=== PATIENT | male | born 1955 | race Caucasian/White ===

== ENCOUNTER 2023-11-11 21:54 | Inpatient (IN) | payer OTHER, SELFPAY ==
[2023-11-11] VITALS (19 sets, daily range): BP systolic 91–121; BP diastolic 51–88; PULSE 120–171; RESP 13–33; TEMP 36.5; O2SAT 92–96
--- NOTE | 2023-11-11 21:45 | RT.EKG_ITS ---
APPROVED REPORT Exam: Resting ECG Reason for Exam: SOB Patient Location: E HR:132 bpm ECG Measurements Heart Rate 132 AXIS MD 173 P 109 QRSd 156 QRS 121 QT 338 T -28 QTc 496 Conclusion afib rate in 130's IVCD no ST segment or T wave abnormalities to suggest occlusive ID
--- NOTE | 2023-11-11 22:00 | DI.RAD_ITS ---
Exam(s) XR CHEST 2V PA LATERAL EXAM: XR CHEST 2V PA LATERAL CLINICAL HISTORY: short of breath TECHNIQUE: 2D digital imaging was performed. COMPARISON: CR PORTABLE CHEST ONE VIEW from 01/28/2018 FINDINGS: Exam is quite limited by poor pulmonary inflation and under penetration. The cardiac silhouette obs cures visualization of the majority of the left lung on the AP view. HEART: Enlarged. Status post CABG. Aorta: Not dilated. PULMONARY VASCULATURE: Normal. LUNGS: Grossly clear. Basilar atelectasis. PLEURAL SPACE: No pleural effusion or pneumothorax. BONE:Unremarkable for age. Soft tissues: Unremarkable. IMPRESSION: Cardiomegaly. No acute abnormality. DATA REPOSITORY: RADIATION DOSE DELIVERED:
[2023-11-11 22:17] LABS: Lactate 2.1 mmol/L (0.6-1.4)
[2023-11-11 22:20] LABS: Abs Immature Grans 0.06 10^3/uL (0.0-0.06); Absolute Basophil Count 0.02 10^3/uL (0.0-0.2); Absolute Eosinophil Count 0.03 10^3/uL (0.0-0.7); Basophils % 0.2; Eosinophils % 0.4; HCT 32.7 % (40.0-50.0); HGB 10.7 g/dL (13.5-17.5); Immature Grans % 0.7; Lymphocytes % 2.4; MCH 30.8 pg (27.0-33.0); MCHC 32.7 % (32.0-36.0); MCV 94 fL (80-95); MPV 9.7 fL (8.0-11.0); Monocytes % 7.1; Neutrophils % 89.2; Platelet Count 160 10^3/uL (130-400); RBC 3.47 10^6/uL (4.36-5.78); RDW 15.3 % (11.8-14.1); RDW-SD 52.8 fL; WBC 8.51 10^3/uL (4.4-10.8)
[2023-11-11 22:33] LABS: Magnesium 1.5 mg/dL (1.8-2.4)
[2023-11-11 22:45] LABS: ALT 46 U/L (16-63); AST 46 U/L (15-37); Albumin 2.2 g/dL (3.4-5.0); Alkaline Phosphatase 102 U/L (46-116); Anion Gap 11.6 mmol/L (3-11); Bilirubin, Total 0.8 mg/dL (0.2-1.0); CO2 27.4 mmol/L (21.0-32.0); Calcium 9.8 mg/dL (8.5-10.1); Chloride 95 mmol/L (98-107); Estimated GFR 13.49 (mL/min/1.73m2); Glucose 172 mg/dL (74-106); NT-proBNP 4926 pg/mL (<300); Sodium 134 mmol/L (136-145); TSH (W/Ref FT4) 2.61 uIU/mL (0.36-3.74); Total Protein 8.2 g/dL (6.4-8.2); Troponin I < 50 ng/L (< or =60)
[2023-11-11 22:49] LABS: BUN 83 mg/dL (7-18); CREATININE 4.5 mg/dL (0.70-1.30)
[2023-11-11 22:51] LABS: D-Dimer 2603 ng/mlFEU (<500)
[2023-11-11 22:57] LABS: Procalcitonin 0.4 ng/mL
--- NOTE | 2023-11-11 23:06 | DI.VRAD_ITS ---
PROCEDURE INFORMATION: Exam: XR Chest Exam date and time: 11/11/2023 10:34 PM Age: 68 years old Clinical indication: Shortness of breath; Prior surgery; Surgery date: 6+ months; Surgery type: Cabg TECHNIQUE: Imaging protocol: Radiologic exam of the chest. Views: 2 views. COMPARISON: CR PORTABLE CHEST ONE VIEW 01/28/2018 9:18 AM FINDINGS: Lungs: See Diaphragm finding. Pleural spaces: Unremarkable. No pleural effusion. No pneumothorax. Heart/Mediastinum: Unremarkable. No cardiomegaly. Diaphragm: Elevation of the right hemidiaphragm. Lungs are clear. Bones/joints: Unremarkable. IMPRESSION: Elevation of the right hemidiaphragm. Lungs are clear. Dictated and Authenticated by: Christiano Muñoz MD. Ordering:BOBBI Stewart MD
[2023-11-11] MEDS: PIPERACILLIN/TAZO 4.5 GM in Normal Saline 100 ML IVPB (23:08)
[2023-11-11] MEDS: Normal Saline 1,000 ML 1000 ML IV (23:08)
[2023-11-11] MEDS: LINEZOLID 600 MG/300 ML BAG 300 MG IVPB (23:08)
--- NOTE | 2023-11-11 23:20 | W.ED.GENAD ---
HPI General Mode of arrival: EMS. Date/Time Provider Initiated Documentation: 11/11/23 22:07. Limitations to Documentation: no limitations. Information obtained by: patient, family, EMS and old records reviewed. HPI Narrative: 68yo M with obesity, afib, HLD, T2DM, HTN, CHF, CKD, s/p CABG, presents for general malaise. [facility] Has felt unwell for the past week, become more lightheaded and generally fatigued. Today so weak he was unable to navigate the stairs to get to bed and so called EMS. HR 160's for EMS, given 5mg IV metoprolol. Mildly nauseated, no vomiting. No chest pain or abdominal pain. Some worsening GALLAGHER over the past three months. Has a left foot ulcer which has been getting worse. Not eating or drinking much today, mouth feels dry, very lightheaded when he tries to stand. Decreased urine output today and yesterday, has voided twice today. No worsening LE edema or orthopnea. He is otherwise in his usual state of health with no fevers, chills, dysuria, hematuria, numbness, focal weakness, or other concerns. Related Data Home Medications Medication Instructions Recorded Confirmed clopidogrel 75 mg tablet (Plavix) 75 mg PO DAILY 05/07/13 11/11/23 insulin aspart U-100 100 unit/mL 0 - 45 units SQ .WITH MEALS PRN 05/07/13 11/11/23 subcutaneous solution (Novolog U-100 Insulin aspart) losartan 50 mg tablet (Cozaar) 100 mg PO DAILY 05/07/13 11/11/23 acetaminophen 500 mg tablet 1,000 mg PO PRN 03/27/14 11/11/23 (Acetaminophen Extra Strength) gabapentin 300 mg capsule 1 cap PO TID 09/13/14 11/11/23 atorvastatin 20 mg tablet (Lipitor) 40 mg PO HS 01/03/16 11/11/23 metoprolol tartrate 100 mg tablet 112.5 mg PO BID 01/03/16 11/11/23 pantoprazole 40 mg tablet,delayed 40 mg PO QAM 01/03/16 11/11/23 release metformin 1,000 mg tablet 1 tab PO BID 08/23/16 11/11/23 (Glucophage) omega-3 fatty acids 500 mg capsule 500 mg PO BID 08/23/16 11/11/23 (Fish Oil) allopurinol 300 mg tablet 300 mg PO DAILY 01/28/18 11/11/23 amlodipine 5 mg tablet 5 mg PO DAILY 01/28/18 11/11/23 bumetanide 2 mg tablet 2 mg PO DAILY 01/28/18 11/11/23 insulin glargine 100 unit/mL (3 66 unit SQ HS 01/28/18 11/11/23 mL) subcutaneous pen (Lantus Solostar U-100 Insulin) isosorbide mononitrate 120 mg 240 mg PO DAILY 01/28/18 11/11/23 tablet,extended release 24 hr potassium chloride 10 mEq 10 meq PO BID 01/28/18 11/11/23 tablet,extended release rivaroxaban 2.5 mg tablet (Xarelto) 2.5 mg PO BID 10/01/23 11/11/23 Allergies Allergy/AdvReac Type Severity Reaction Status Date / Time silver Allergy Mild Skin Rash Unverified 11/11/23 22:05 [From Tegaderm AG Mesh] Penicillins Allergy Verified 11/11/23 22:05 amoxicillin [From Augmentin] AdvReac Other (See Unverified 11/11/23 22:05 Comment) clavulanic acid AdvReac Other (See Unverified 11/11/23 22:05 [From Augmentin] Comment) cillians Allergy Mild Uncoded 11/11/23 22:05 General Stated Complaint: GenMedical EBONI: 3 Review of Systems Narrative: see HPI Exam Narrative Exam Narrative: General: Alert, chronically ill appearing, obese. Head: Normocephalic, atraumatic Neck: Trachea midline, ?Neck supple. ENT: ?Dry MM. Cardiac: ?Tachycardiac to 130's, irregular,, no murmurs appreciated. Resp: No respiratory distress. CTAB. Abd: ?Soft, nontender : ?No suprapubic tenderness. Extremities: Venous stasis changes BLE. No peripheral edema,, calves symmetric. Multiple LE digit amputations. LLE with~3cm ulcer to top of food, dry gangrene, surrounding maceration with warmth and erythema extending up anterior cohen. Scant malodorous discharge, no theo purulence. Healing ulcer to planar aspect of left foot near base of 1st/2nd digit, not overtly infected. DP pulses palpable bilaterally Neurologic: GCS 15. ? Moves all extremities freely against gravity Course Vital Signs Vital signs: Vital Signs Temperature 36.5 C 11/11/23 21:55 Pulse 163 H 11/11/23 21:55 Respiratory Rate 16 11/11/23 21:55 Pulse Oximetry 92 11/11/23 21:55 Temperature 36.5 C 11/11/23 22:04 Temperature Source Skin 11/11/23 22:04 Pulse 171 H 11/11/23 22:16 Pulse 125 H 11/11/23 23:00 Respiratory Rate 21 11/11/23 23:00 Respiratory Effort Normal 11/11/23 22:06 Respiratory Depth Normal 11/11/23 22:06 Respiratory Pattern Normal 11/11/23 22:06 Blood Pressure 121/84 11/11/23 22:16 Blood Pressure Mean 94 11/11/23 22:16 Blood Pressure Position Supine 11/11/23 22:04 Pulse Oximetry 96 11/11/23 23:00 Oxygen Delivery Method Room Air 11/11/23 22:04 Oxygen Flow Rate 0 11/11/23 21:55 Pain Level 0 11/11/23 22:04 Comment 2 L NC 11/11/23 23:00 Lab/Test Results Lab/Test Results: 11/11/23 22:50 Blood Blood Culture - Pending 11/11/23 22:05 Blood Blood Culture - Pending Laboratory Tests Range/Units 11/11/23 22:05 WBC (4.4-10.8) 10^3/uL 8.51 RBC (4.36-5.78) 10^6/uL 3.47 L Hgb (13.5-17.5) g/dL 10.7 L Hct (40.0-50.0) % 32.7 L MCV (80-95) fL 94 MCH (27.0-33.0) pg 30.8 MCHC (32.0-36.0) % 32.7 RDW (11.8-14.1) % 15.3 H Plt Count (130-400) 10^3/uL 160 MPV (8.0-11.0) fL 9.7 Immature Gran % 0.7 Neutrophils % 89.2 Lymphocytes % 2.4 Monocytes % 7.1 Eosinophils % 0.4 Basophils % 0.2 Nucleated RBC % (0.0-0.3) % 0.0 Absolute Neutrophils (1.2-6.7) 10^3/uL 7.60 H Absolute Lymphocytes (1.2-3.4) 10^3/uL 0.20 L Absolute Monocytes (0.1-0.8) 10^3/uL 0.60 Absolute Eosinophils (0.0-0.7) 10^3/uL 0.03 Absolute Basophils (0.0-0.2) 10^3/uL 0.02 D-Dimer (<500) ng/mlFEU 2603 H VBG Lactate (0.6-1.4) mmol/L 2.1 H Sodium (136-145) mmol/L 134 L Potassium (3.5-5.1) mmol/L 4.0 Chloride (98-107) mmol/L 95 L Carbon Dioxide (21.0-32.0) mmol/L 27.4 Anion Gap (3-11) mmol/L 11.6 H BUN (7-18) mg/dL 83 H* Creatinine (0.70-1.30) mg/dL 4.5 H* Est GFR (CKD-EPI 2020) (mL/min/1.73m2) 13.49 Glucose (74-106) mg/dL 172 H Calcium (8.5-10.1) mg/dL 9.8 Magnesium (1.8-2.4) mg/dL 1.5 L Total Bilirubin (0.2-1.0) mg/dL 0.8 AST (15-37) U/L 46 H ALT (16-63) U/L 46 Alkaline Phosphatase (46-116) U/L 102 Troponin I (< or =60) ng/L < 50 NT-Pro-B Natriuret Pep (<300) pg/mL 4926 H Total Protein (6.4-8.2) g/dL 8.2 Albumin (3.4-5.0) g/dL 2.2 L Procalcitonin ng/mL 0.4 TSH (0.36-3.74) uIU/mL 2.61 Medical Decision Making 68yo M with obesity, afib, HLD, T2DM, HTN, CHF, CKD, s/p CABG, presents for general malaise. Initial history from patient, EMS, and [facility] record review; [facility] Pt/EMS did not initially mention history of kidney disease; subsequently at bedside and able to provide additional details. Has felt unwell for the past week, become more lightheaded and generally fatigued and today wasso weak he was unable to navigate the stairs to get to bed which prompted EMS call. HR in 160's for EMS, given 5mg metoprolol. On my initial assessment HR down to 130's, normotensive. Physical exam significant for left foot ulcer which appears infected with warmth and erythema extending up cohen. Appears volume down on exam; dry MM, clear lungs, no LE edema. Does report decreased fluid intake over the past several days. He is unsure of his EF or baseline CR. Elevated HR and infection concerning for potential sepsis though he is afebrile; will proceed cautiously with fluid resuscitation. Given 500cc NS, started on zosyn/zyvox for coverage for diabetic foot infection. CXR with no pulmonary edema or focal pneumonia on my view, agree [facility] radiology read below. EKG afib with rate in 130's, RBBB also present on prior EKG, no ST segment or T wave abnormalities to suggest occlusive [place]. Labs reviewed as below, CBC reassuring with no leukocytosis, mild anemia. Does not meet SIRS/sepsis criteria. CMP with no actionable electrolyte abnormalities, normal bicarb, however Cr elevated at 4.5 with uremia BUN 83. Most recent Cr at [facility] in 2018 was 1.8. subsequently to bedside, reports baseline Cr of around 2.0, has been as high as 3.5 in the past. Lactate mildly elevated at 2.1, procal borderline at 0.4. Will repeat lactate in 3 hours. TSH normal. Troponin normal, BNP elevated at 4926 (unknown baseline). Dimer elevated at 2600. Patient is currently on ASA, plavix, and low-dose xarelto. No findings on physical exam to suggest DVT. Lower suspicion for pulmonary embolism as etiology of tachycardia however remains possible; hesitate to do contrasted CT given acutely worsening kidney function and more likely infection as provoking source. Will defer decision on imaging/empiric anticoagulation to admitting service. Will continue to treat for diabetic foot infection and proceed cautiously with fluid resus. On reassessment HR 120's, had been placed on 2L NC for supine hypoxia to 88% (does not wear oxygen at home but does wear biPAP at night). Lungs remain clear, suspect this is likely chronic and not 2/t CHF or PE. Discussed with hospitalist Dr. Flores and accepted for admission. Awaiting transfer to the floor. . Medical Records Medical records reviewed: Yes I reviewed the patient's medical records. Imaging Data Radiologic Study: Imaging: X-Ray Radiologist's impression: IMPRESSION: Elevation of the right hemidiaphragm. Lungs are clear Lab Data Lab results reviewed: Yes I reviewed the patient's lab results. Labs: 11/11/23 22:50 Blood Blood Culture - Pending 11/11/23 22:05 Blood Blood Culture - Pending Laboratory Tests Range/Units 11/11/23 22:05 WBC (4.4-10.8) 10^3/uL 8.51 RBC (4.36-5.78) 10^6/uL 3.47 L Hgb (13.5-17.5) g/dL 10.7 L Hct (40.0-50.0) % 32.7 L MCV (80-95) fL 94 MCH (27.0-33.0) pg 30.8 MCHC (32.0-36.0) % 32.7 RDW (11.8-14.1) % 15.3 H Plt Count (130-400) 10^3/uL 160 MPV (8.0-11.0) fL 9.7 Immature Gran % 0.7 Neutrophils % 89.2 Lymphocytes % 2.4 Monocytes % 7.1 Eosinophils % 0.4 Basophils % 0.2 Nucleated RBC % (0.0-0.3) % 0.0 Absolute Neutrophils (1.2-6.7) 10^3/uL 7.60 H Absolute Lymphocytes (1.2-3.4) 10^3/uL 0.20 L Absolute Monocytes (0.1-0.8) 10^3/uL 0.60 Absolute Eosinophils (0.0-0.7) 10^3/uL 0.03 Absolute Basophils (0.0-0.2) 10^3/uL 0.02 D-Dimer (<500) ng/mlFEU 2603 H VBG Lactate (0.6-1.4) mmol/L 2.1 H Sodium (136-145) mmol/L 134 L Potassium (3.5-5.1) mmol/L 4.0 Chloride (98-107) mmol/L 95 L Carbon Dioxide (21.0-32.0) mmol/L 27.4 Anion Gap (3-11) mmol/L 11.6 H BUN (7-18) mg/dL 83 H* Creatinine (0.70-1.30) mg/dL 4.5 H* Est GFR (CKD-EPI 2020) (mL/min/1.73m2) 13.49 Glucose (74-106) mg/dL 172 H Calcium (8.5-10.1) mg/dL 9.8 Magnesium (1.8-2.4) mg/dL 1.5 L Total Bilirubin (0.2-1.0) mg/dL 0.8 AST (15-37) U/L 46 H ALT (16-63) U/L 46 Alkaline Phosphatase (46-116) U/L 102 Troponin I (< or =60) ng/L < 50 NT-Pro-B Natriuret Pep (<300) pg/mL 4926 H Total Protein (6.4-8.2) g/dL 8.2 Albumin (3.4-5.0) g/dL 2.2 L Procalcitonin ng/mL 0.4 TSH (0.36-3.74) uIU/mL 2.61 Quality:[facility] Related Social Needs: No Data to Display PFSH All Active Problems (Updated 11/12/23 @ 00:44 by Pat Garcia MD) Atrial fibrillation with RVR (Acute) Acute kidney injury superimposed on chronic kidney disease (Acute) CHF (congestive heart failure) (Chronic) History of: (Active) Right frozen shoulder, resolved. Right elbow tendinitis, now resolved. S/P hydrocele repair. 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 History of metatarsal fracture. Metabolic syndrome X (Active) Dyslipidemia (Active) Triglycerides greater than 600 and HDL in the 20s, consistent with metabolic syndrome. Atrial fibrillation (Active) Tinea cruris (Active) Venous stasis syndrome (Active) Morbid obesity (Acute) [place] of 46. Gastroesophageal reflux disease (Active) Diabetes mellitus type 2 (Acute) Uncontrolled, usually on high dose insulin; known retinopathy and mild nephropathy. Benign hypertension (Active) Umbilical hernia (Active) Cellulitis and abscess of leg (Acute) Recurrent. Social History Smoking/Tobacco Use Status: Former Tobacco Use Smoking risk assessment performed?: Yes Alcohol Intake: never Drug use: Never Substance use type: does not use Do you feel safe at home: Yes Do you feel safe in your relationship?: Yes Discharge Plan Disposition Patient Disposition: Admit to [facility] Discharge Details Chief Complaint: GenMedical Clinical Impression: Diabetes mellitus type 2, Morbid obesity, Cellulitis and abscess of leg, CHF (congestive heart failure), Acute kidney injury superimposed on chronic kidney disease, Atrial fibrillation with RVR Primary Care Provider: Stefan Jaimes ED Provider: Pat Garcia Home Meds and New Rx's Prescriptions: No Action Xarelto 2.5 mg tablet 2.5 mg PO BID losartan [Cozaar] 50 MG tablet 100 mg PO DAILY clopidogrel [Plavix] 75 MG tablet 75 mg PO DAILY insulin aspart U-100 [Novolog U-100 Insulin aspart] 100 UNITS/ML solution 0 - 45 units SQ .WITH MEALS PRN acetaminophen [Acetaminophen Extra Strength] 500 MG tablet 1,000 mg PO PRN gabapentin 300 MG capsule 1 cap PO TID atorvastatin [Lipitor] 20 MG tablet 40 mg PO HS metoprolol tartrate 100 MG tablet 112.5 mg PO BID pantoprazole 40 MG tablet,delayed release (DR/EC) 40 mg PO QAM metformin [Glucophage] 1,000 MG tablet 1 tab PO BID Fish Oil 500 MG capsule 500 mg PO BID bumetanide 2 MG tablet 2 mg PO DAILY potassium chloride 10 MEQ tablet extended release 10 meq PO BID amlodipine 5 MG tablet 5 mg PO DAILY isosorbide mononitrate 120 MG tablet extended release 24 hr 240 mg PO DAILY allopurinol 300 MG tablet 300 mg PO DAILY insulin glargine [Lantus Solostar U-100 Insulin] 100 UNIT/ML insulin pen 66 unit SQ HS
[2023-11-12] VITALS (62 sets, daily range): BP systolic 89–145; BP diastolic 38–79; PULSE 56–150; RESP 8–29; TEMP 36.8–37.3; O2SAT 92–95
--- NOTE | 2023-11-12 | DI.US_ITS ---
Exam(s) US RENAL EXAM: US RENAL CLINICAL HISTORY: YOLANDA. TECHNIQUE: Fam scale, color and spectral Doppler were used. COMPARISON: US ABDOMEN ULTRASOUND (P) from 05/08/2013 FINDINGS: Renal size in cm: Right: 12.3. Left: 13.7. Echogenicity: Normal. Hydronephrosis: No. Cyst or mass: No. Nephrolithiasis: No. Other findings: Mild diffuse cortical thinning. Bladder:Normal. Ureteral jets: Right: Not visualized on this examination. Left: Not visualized on this examination. Prevoid vol:879 cc Postvoid vol:The patient was unable to void. Prostate: Not visualized. Renal color flow: Symmetric and within normal limits. IMPRESSION: 1. Mild cortical thinning but no evidence of hydronephrosis or renal mass is seen sonographically. 2. The patient was unable to void during the examination. The urinary bladder is grossly unremarkabl e. DATA REPOSITORY:
--- NOTE | 2023-11-12 | DI.RAD_ITS ---
Exam(s) XR FOOT LT COMPLETE EXAM: XR FOOT LT COMPLETE CLINICAL HISTORY: question of osteomyelitis; DM foot ulcer. TECHNIQUE: 2D digital imaging was performed. Three views. COMPARISON: CR LEFT FOOT COMPLETE from 03/16/2018 FINDINGS: Stable appearance of amputation at the base of the proximal phalanx of the great toe. There has been interval amputation of the entire 2nd toe. Amputation of the 3rd toe since the prior exam with resi dual remaining proximal portion. Adjacent soft tissue swelling. No foreign body or bony erosions. Degenerative changes again noted in the intertarsal region. IMPRESSION: Status post amputations of the 2nd and 3rd toes. No plain film evidence of osteomyelitis. DATA REPOSITORY: RADIATION DOSE DELIVERED:
--- NOTE | 2023-11-12 00:42 | W.PM.HP.N ---
Date of service: 11/12/23 Time of Service: 00:42 Assessment and Plan Assessment and plan (1) Cellulitis: Status: Acute Assessment and plan: I think the primary problem here is diabetic foot infection with cellulitis. Zosyn is adequate broad spectrum coverage, I do not see need to continue Zyvox at this point. Will consult Podiatry. As to the YOLANDA, likely pre-renal, will check urine and gently -- in light of h/o CHF in particular -- hydrate, and trend renal function. AF: will up titrate beta ralph for rate control; continue DOAC as is YOLANDA: gentle IVF, hold ARB and Bumex, trend DM: Lantus (2/3 usual dose) plus SS coverage Reviewed ADs, requests Full Code History of Present Illness History of Present Illness Chief Complaint: weakness Narrative: 68 male with DM, CHF, AF, obesity -- here with one week of malaise, and few days of progressive generalized weakness, anorexia and poor PO intake. EMS summoned. On arrival pulse 160, given 5 Lopressor en route. Here in ER findings of note for temp 36.5; 5 cm oozing ulcer dorsum right foot with pretibial cellulitis; white count 8.5;BUN 83, Creat 4.5; procal 0.4; Patient given Zosyn and Zyvox. I was asked to evaluate for admission. Review of Systems Narrative: per HPI PFSH All Active Problems (Updated 11/12/23 @ 00:51 by Gerson Flores MD) Cellulitis (Acute) Atrial fibrillation with RVR (Acute) Acute kidney injury superimposed on chronic kidney disease (Acute) CHF (congestive heart failure) (Chronic) History of: (Active) Right frozen shoulder, resolved. Right elbow tendinitis, now resolved. S/P hydrocele repair. 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 History of metatarsal fracture. Metabolic syndrome X (Active) Dyslipidemia (Active) Triglycerides greater than 600 and HDL in the 20s, consistent with metabolic syndrome. Atrial fibrillation (Active) Tinea cruris (Active) Venous stasis syndrome (Active) Morbid obesity (Acute) [place] of 46. Gastroesophageal reflux disease (Active) Diabetes mellitus type 2 (Acute) Uncontrolled, usually on high dose insulin; known retinopathy and mild nephropathy. Benign hypertension (Active) Umbilical hernia (Active) Cellulitis and abscess of leg (Acute) Recurrent. Social History Smoking/Tobacco Use Status: Former Tobacco Use Smoking risk assessment performed?: Yes Alcohol Intake: never Drug use: Never Substance use type: does not use Do you feel safe at home: Yes Do you feel safe in your relationship?: Yes Meds Allergies and Home Medications Allergies Allergy/AdvReac Type Severity Reaction Status Date / Time silver Allergy Mild Skin Rash Unverified 11/11/23 22:05 [From Tegaderm AG Mesh] Penicillins Allergy Verified 11/11/23 22:05 amoxicillin [From Augmentin] AdvReac Other (See Unverified 11/11/23 22:05 Comment) clavulanic acid AdvReac Other (See Unverified 11/11/23 22:05 [From Augmentin] Comment) cillians Allergy Mild Uncoded 11/11/23 22:05 Home Medications Medication Instructions Recorded Confirmed Type clopidogrel 75 mg tablet (Plavix) 75 mg PO DAILY 05/07/13 11/11/23 History insulin aspart U-100 100 unit/mL 0 - 45 units SQ .WITH MEALS PRN 05/07/13 11/11/23 History subcutaneous solution (Novolog U-100 Insulin aspart) losartan 50 mg tablet (Cozaar) 100 mg PO DAILY 05/07/13 11/11/23 History acetaminophen 500 mg tablet 1,000 mg PO PRN 03/27/14 11/11/23 History (Acetaminophen Extra Strength) gabapentin 300 mg capsule 1 cap PO TID 09/13/14 11/11/23 History atorvastatin 20 mg tablet (Lipitor) 40 mg PO HS 01/03/16 11/11/23 History metoprolol tartrate 100 mg tablet 112.5 mg PO BID 01/03/16 11/11/23 History pantoprazole 40 mg tablet,delayed 40 mg PO QAM 01/03/16 11/11/23 History release metformin 1,000 mg tablet 1 tab PO BID 08/23/16 11/11/23 History (Glucophage) omega-3 fatty acids 500 mg capsule 500 mg PO BID 08/23/16 11/11/23 History (Fish Oil) allopurinol 300 mg tablet 300 mg PO DAILY 01/28/18 11/11/23 History amlodipine 5 mg tablet 5 mg PO DAILY 01/28/18 11/11/23 History bumetanide 2 mg tablet 2 mg PO DAILY 01/28/18 11/11/23 History insulin glargine 100 unit/mL (3 66 unit SQ HS 01/28/18 11/11/23 History mL) subcutaneous pen (Lantus Solostar U-100 Insulin) isosorbide mononitrate 120 mg 240 mg PO DAILY 01/28/18 11/11/23 History tablet,extended release 24 hr potassium chloride 10 mEq 10 meq PO BID 01/28/18 11/11/23 History tablet,extended release rivaroxaban 2.5 mg tablet (Xarelto) 2.5 mg PO BID 10/01/23 11/11/23 History Exam Narrative Exam Narrative: 121/84, 112 (during visit), 36.5, 21, 96%. PATRICIA$NT atraumatic; neck supple; lungs clear (anterior exam, declines to change position); heart irr/irr; abdomen obese, non-tender; extremities s/p right toe amps; on left there is a 5 cm oozing ulcr with eschar on dorsum of foot, with erythema and warmth apparent against a background of chronic stasis changes Results Labs 11/11/23 22:05 11/11/23 22:05 Labs: Laboratory Results - last 24 hr 11/11/23 22:05 WBC 8.51 RBC 3.47 L Hgb 10.7 L Hct 32.7 L MCV 94 MCH 30.8 MCHC 32.7 RDW 15.3 H Plt Count 160 MPV 9.7 Immature Gran % 0.7 Neutrophils % 89.2 Lymphocytes % 2.4 Monocytes % 7.1 Eosinophils % 0.4 Basophils % 0.2 Nucleated RBC % 0.0 Absolute Neutrophils 7.60 H Absolute Lymphocytes 0.20 L Absolute Monocytes 0.60 Absolute Eosinophils 0.03 Absolute Basophils 0.02 D-Dimer 2603 H VBG Lactate 2.1 H Sodium 134 L Potassium 4.0 Chloride 95 L Carbon Dioxide 27.4 Anion Gap 11.6 H BUN 83 H* Creatinine 4.5 H* Est GFR (CKD-EPI 2020) 13.49 Glucose 172 H Calcium 9.8 Magnesium 1.5 L Total Bilirubin 0.8 AST 46 H ALT 46 Alkaline Phosphatase 102 Troponin I < 50 NT-Pro-B Natriuret Pep 4926 H Total Protein 8.2 Albumin 2.2 L Procalcitonin 0.4 TSH 2.61 Last Vital Signs Temp 36.5 C 11/11/23 22:04 Pulse 171 H 11/11/23 22:16 Resp 21 11/11/23 23:00 BP 121/84 11/11/23 22:16 Pulse Ox 96 11/11/23 23:00 Time Spent Time spent with Patient: 40-54 minutes Time was spent: preparing to see the patient(eg.review tests), obtaining and/or reviewing separately otained hiistory, ordering medications,tests, procedures, referring, communicating with other health healthcare customer service and indepentently interpreting results
[2023-11-12] MEDS: PIPERACILLIN/TAZO 3.375 GM in Normal Saline 50 ML IVPB (04:03)
[2023-11-12] MEDS: Metoprolol 25 MG TAB PO (04:59)
[2023-11-12] MEDS: Lactated Ringers 1,000 ML 80 ML IV (05:15)
[2023-11-12 05:21] LABS: Lactate 0.9 mmol/L (0.6-1.4)
[2023-11-12 06:37] LABS: Anion Gap 14.1 mmol/L (3-11); CO2 25.9 mmol/L (21.0-32.0); Calcium 9.6 mg/dL (8.5-10.1); Chloride 95 mmol/L (98-107); Estimated GFR 13.49 (mL/min/1.73m2); Glucose 159 mg/dL (74-106); Potassium 3.5 mmol/L (3.5-5.1); Sodium 135 mmol/L (136-145)
[2023-11-12 06:43] LABS: BUN 88 mg/dL (7-18); CREATININE 4.5 mg/dL (0.70-1.30)
[2023-11-12] MEDS: MAGNESIUM SULFATE 1 GM/100 ML BAG IVPB (07:45)
[2023-11-12] MEDS: Clopidogrel 75 MG TAB PO (07:51)
[2023-11-12] MEDS: Pantoprazole 40 MG TABCR PO (07:51)
[2023-11-12] MEDS: Metoprolol 50 MG TAB 100 MG PO ×2 (07:51→20:49)
[2023-11-12] MEDS: Metoprolol 25 MG TAB 12.5 MG PO ×2 (07:51→20:47)
[2023-11-12] MEDS: Rivaroxaban 2.5 MG TABLET PO ×2 (10:30→20:47)
[2023-11-12] MEDS: amLODIPine 5 MG TAB PO (10:31)
[2023-11-12] MEDS: Isosorbide Mononitrate 60 MG TABCR 240 MG PO (10:31)
[2023-11-12] MEDS: Gabapentin 300 MG CAP PO ×2 (10:46→20:48)
[2023-11-12 10:49] LABS: Lab Add On Test DONE
[2023-11-12 11:14] LABS: Creatine Kinase 444 U/L (39-308)
[2023-11-12 11:17] LABS: C-Reactive Protein > 25.00 mg/dL (0.0-0.3)
[2023-11-12] MEDS: PIPERACILLIN/TAZO 2.25 GM in Normal Saline 50 ML IVPB ×3 (11:27→21:37)
[2023-11-12] MEDS: Insulin Aspart 300 UNITS/3 ML PEN SC ×2 (11:38→16:59)
[2023-11-12] MEDS: LINEZOLID 600 MG/300 ML BAG 300 MG IVPB ×2 (12:17→23:44)
[2023-11-12 14:25] LABS: Bilirubin Negative (Negative); Blood Negative (Negative); Clarity Clear (Clear); Glucose Negative (Negative); Ketones Negative (Negative); Leukocyte Esterase Negative (Negative); Nitrite Negative (Negative)
[2023-11-12 14:33] LABS: Bacteria Negative HPF (Negative); C & S Indicated? No; Casts 0-2 Hyaline LPF (Negative); Crystals Negative HPF (Negative); Epithelial Cells Rare HPF (Negative); Mucus Negative (Negative); RBC Negative HPF (0-2); WBC Negative HPF (0-5)
[2023-11-12] MEDS: Atorvastatin 40 MG TAB PO (20:48)
[2023-11-12] MEDS: Insulin Glargine 300 UNITS/3 ML PEN 44 UNITS SC (21:43)
[2023-11-13] VITALS (9 sets, daily range): BP systolic 111–128; BP diastolic 55–78; PULSE 72–105; RESP 14–20; TEMP 36.3–38.3; O2SAT 92–96
[2023-11-13] MEDS: PIPERACILLIN/TAZO 2.25 GM in Normal Saline 50 ML IVPB ×4 (03:15→22:11)
[2023-11-13] MEDS: Lactated Ringers 1,000 ML 80 ML IV (03:38)
[2023-11-13 07:41] LABS: Abs Immature Grans 0.04 10^3/uL (0.0-0.06); Absolute Basophil Count 0.03 10^3/uL (0.0-0.2); Absolute Eosinophil Count 0.08 10^3/uL (0.0-0.7); Absolute Lymphocyte Count 0.32 10^3/uL (1.2-3.4); Absolute Monocyte Count 0.75 10^3/uL (0.1-0.8); Absolute Neutrophil Count 5.89 10^3/uL (1.2-6.7); Basophils % 0.4; Eosinophils % 1.1; HCT 33.5 % (40.0-50.0); HGB 11.2 g/dL (13.5-17.5); Immature Grans % 0.6; Lymphocytes % 4.5; MCH 31.1 pg (27.0-33.0); MCHC 33.4 % (32.0-36.0); MCV 93 fL (80-95); MPV 10.4 fL (8.0-11.0); Monocytes % 10.5; Neutrophils % 82.9; Platelet Count 178 10^3/uL (130-400); RDW 15.4 % (11.8-14.1); WBC 7.11 10^3/uL (4.4-10.8)
[2023-11-13 08:08] LABS: Anion Gap 15.4 mmol/L (3-11); C-Reactive Protein 23.49 mg/dL (0.0-0.3); CO2 22.6 mmol/L (21.0-32.0); Calcium 9.5 mg/dL (8.5-10.1); Chloride 90 mmol/L (98-107); Estimated GFR 13.13 (mL/min/1.73m2); Glucose 269 mg/dL (74-106); Potassium 3.4 mmol/L (3.5-5.1); Sodium 128 mmol/L (136-145)
[2023-11-13 08:11] LABS: BUN 94 mg/dL (7-18)
[2023-11-13 08:12] LABS: CREATININE 4.6 mg/dL (0.70-1.30)
[2023-11-13] MEDS: Insulin Aspart 300 UNITS/3 ML PEN SC ×3 (08:50→17:11)
[2023-11-13] MEDS: Gabapentin 300 MG CAP PO ×2 (08:53→20:48)
[2023-11-13] MEDS: Pantoprazole 40 MG TABCR PO (08:53)
[2023-11-13] MEDS: Rivaroxaban 2.5 MG TABLET PO ×2 (08:53→20:50)
[2023-11-13] MEDS: Clopidogrel 75 MG TAB PO (08:55)
[2023-11-13] MEDS: Potassium Chloride 20 MEQ TABCR PO (09:46)
[2023-11-13] MEDS: Acetaminophen 325 MG TAB 650 MG PO (09:46)
--- NOTE | 2023-11-13 09:56 | W.INDIABCONS ---
Date of service: 11/13/23 Time of Service: 08:45 Diabetes Inpatient Consult Reason for Visit: Routine Consult - Diabetes Education DESCRIPTION/ASSESSMENT: MR Shirley is a 68yo male admitted with cellulitis ulcer on R foot, Afib with RVR, YOLANDA superimposed on CKD with Hx of CHF, obesity, DMII (with current insulin use), dyslipidemia, GERD, and HTN. NKFA. Pt relays no special alevism food needs during admission. Takes 66units Glargine HS and 0-45units Aspart c meals at home, as well as metformin BID. Glucose managed this admission with 44 units Glargine HS and sensitive SS of insulin aspart at meals. Pt states he does most of the cooking at home but lately hasn't cooked, eaten significantly and stopped taking his insulin shortly prior to admission. Last A1C was 7.1 in 2012 per EMR. Ordered for low sodium CHO consistent diet order - reviewed with pt. FBG this morning was 269 - would expect elevated glucose with current acute illness and inflammation (CRP is >20). Current BMI of 45.2kg/m2 is indicative of stage III obesity, although pt is currently fluid overloaded and accounts for some of this. Pt not appropriate for diabetes education at this time due to his acute state of illness and focusing on his current situation as priority. He declined in-depth education but accepted my card to consider future outpatient diabetes education /wt mgt appointments. INTERVENTION: due to his significant drop in appetite and oral intake, pt willing to trial a glucerna ONS on lunch trays to get some extra protein and nutrition. Will make an effort to follow pt as his condition improves to offer more opportunites to go over diabetes mgt with diet. PLAN: Will follow up on ONS toleration and changes in appetite/intake - Will make an effort to follow pt as his condition improves to offer more opportunty to go over diabetes mgt with diet. Time Spent in Nutritional Counseling and Treatment: 15 min
[2023-11-13 10:20] LABS: Bilirubin Moderate (Negative); Blood Large (Negative); Clarity Cloudy (Clear); Glucose Negative (Negative); Ketones 15 mg/dL (Negative); Leukocyte Esterase Large (Negative); Nitrite Positive (Negative); pH 5.5 (5-8)
[2023-11-13 10:25] LABS: Lab Add On Test DONE
--- NOTE | 2023-11-13 10:27 | INITIAL_ITS ---
Date of service: 11/13/23 Time of Service: 10:27 Care Management Initial Assmt Initial Assessment REASON FOR HOSPITALIZATION:: cellulitis PREVIOUS FUNCTIONAL STATUS/SOCIAL/FAMILY SUPPORTS:: Ivan lives in a single family home [place] with his Mihaela and 5 other family members. He has 7 children and many grand children. 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 He is independent with ADLs and has a scooter, walker and can e for ambulatory assistance. He does not receive any community services. CURRENT FUNCTIONAL STATUS:: Ivan was sitting up on the side if the bed visiting with his Mihaela when CM met with him. He was polite and agreeable to conversation. Mihaela participated in the conversation as well. She informed CM that she provides all of Ivan's wound care and assists him as needed. [facility] CM contacted [facility] to ensure that the [facility] was [facility]. Ivan and Mihaela had questions about the plan of care and CM provided an update. He has gram positive bacteremia which may mean a longer course of IV antibiotics. There is no evidence of osteomyelitis on Xray and his ECHO did not reveal any vegetation. ADVANCE DIRECTIVES:: none Has patient been provided with info about the portal/API?: Yes Did the patient sign up for the portal?: No CODE STATUS:: Full Code INSURANCE COVERAGE / FINANCIAL ISSUES:: Medicare Medicaid CURRENT HOME/COMMUNITY SERVICES/EQUIPMENT:: scooter, w/c, walker PRIMARY CARE PHYSICIAN:: Stefan Jaimes POTENTIAL DISCHARGE NEEDS:: follow up with PCP and plan of care PATIENT/FAMILY EDUCATION NEEDS:: Review of discharge instructions, limitations, follow up plan and Ask Me Three TRANSPORTATION:: via private vehicle with family PLAN:: Anticipate that Mario will be discharged home, possibly with new home health services. He is agreeable to services if needed. He will follow up with his PCP and plan of care and transport with family. CM will follow and continue to assess for discharge needs. PFSH All Active Problems (Updated 11/13/23 @ 14:53 by Elizabet Mccord NP) Discharge planning issues (Acute) Gram-positive bacteremia (Acute) Cellulitis (Acute) Atrial fibrillation with RVR (Acute) Acute kidney injury superimposed on chronic kidney disease (Acute) CHF (congestive heart failure) (Chronic) History of: (Active) Right frozen shoulder, resolved. Right elbow tendinitis, now resolved. S/P hydrocele repair. 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 History of metatarsal fracture. Metabolic syndrome X (Active) Dyslipidemia (Active) Triglycerides greater than 600 and HDL in the 20s, consistent with metabolic syndrome. Atrial fibrillation (Active) Tinea cruris (Active) Venous stasis syndrome (Active) Morbid obesity (Acute) IN of 46. Gastroesophageal reflux disease (Active) Diabetes mellitus type 2 (Acute) Uncontrolled, usually on high dose insulin; known retinopathy and mild nephropathy. Benign hypertension (Active) Umbilical hernia (Active) Cellulitis and abscess of leg (Acute) Recurrent. Social History Smoking/Tobacco Use Status: Former Tobacco Use Smoking risk assessment performed?: Yes Alcohol Intake: never Drug use: Never Substance use type: does not use Housing: house Do you feel safe at home: Yes Do you feel safe in your relationship?: Yes SDOH(Care Management) Screening Will the Patient Participate in the Screening?: Yes Do you worry about having a steady place to live?: no In the past 12 months, have you had to go without electric, gas, oil or water in your home?: yes Have you or anyone in your house had to go without enough food to eat?: no Has lack of transportation kept you from medical appointments or from doing things needed for daily living?: no Has anyone in your support network made you feel unsafe for any reason?: no Health Related Social Needs Health related social needs: material hardship(utilities)(Z59.87)
[2023-11-13 10:32] LABS: C & S Indicated? Yes; RBC >50 HPF (0-2); WBC >50 HPF (0-5)
--- NOTE | 2023-11-13 10:41 | PGE_ITS ---
Date of Service Date of service: 11/13/23 Time of Service: 10:41 Assessment and Plan Assessment and plan (1) Gram-positive bacteremia: Status: Acute Assessment and plan: blood cultures positive for gram pos cocci, repeat cultures collected echocardiogram pending source: diabetic foot infection (2) Cellulitis: Status: Acute Assessment and plan: diabetic foot infection with cellulitis, met criteria for severe sepsis on admission with HR > 100, RR >20, and YOLANDA, lactate >2 continue Zosyn and Zyvox day 2 preliminary blood cultures positive for gram positive cocci, repeat cultures pending echo pending orthopedic surgical consultation pending as podiatry not available. I think its reasonable to obtain wound care consult. elevate foot follow inflammatory markers, CRP trending downward from > 25 to 23.49 xray: Status post amputations of the 2nd and 3rd toes. No plain film evidence of osteomyelitis. (3) Atrial fibrillation with RVR: Status: Acute Assessment and plan: rate better controlled but still around 100, will further increase to 125 po BID continue to monitor and adjust meds as needed. fully anticoagulated on DOAC (4) Acute kidney injury superimposed on chronic kidney disease: Status: Acute Assessment and plan: creatinine above baseline of 1.5 at 4.6 avoid nephrotoxic drugs, renal dosing as needed. continue IV hydration, bolus with one liter of NS and increase maintenance rate to 125 cc/hr continue to hold ARB and diuretic vanegas catheter placed for accurate I&O and urinary retention renal US: FINDINGS: Renal size in cm: Right: 12.3. Left: 13.7. Echogenicity: Normal. Hydronephrosis: No. Cyst or mass: No. Nephrolithiasis: No. Other findings: Mild diffuse cortical thinning. Bladder:Normal. Ureteral jets: Right: Not visualized on this examination. Left: Not visualized on this examination. Prevoid vol:879 cc Postvoid vol:The patient was unable to void. Prostate: Not visualized. Renal color flow: Symmetric and within normal limits. IMPRESSION: 1. Mild cortical thinning but no evidence of hydronephrosis or renal mass is seen sonographically. 2. The patient was unable to void during the examination. The urinary bladder is grossly unremarkable. (5) Diabetes mellitus type 2: Status: Acute Assessment and plan: metformin on hold will add on A1C, last on file was 8.1 in 2013 [facility]) change sliding scale to moderate increase insulin to home dosing continue to monitor and adjust as needed. (6) Morbid obesity: Status: Acute Assessment and plan: nutrition consult encourage ongoing discussed of weight loss with pcp outpatient (7) Discharge planning issues: Status: Acute Assessment and plan: DVT prophylaxis- anticoagulated on apixaban anticipate discharge to home with resumption of services, care management following for discharge needs. discussed with DR Ortiz Subjective Subjective Patient reports: no new complaints Objective Last Vital Signs Temp 38.3 C H 11/13/23 07:23 Pulse 101 H 11/13/23 07:23 Resp 14 11/13/23 07:23 BP 111/64 11/13/23 07:23 Pulse Ox 95 11/13/23 07:23 Laboratory Results - last 24 hr 11/12/23 11/12/23 11/13/23 05:13 14:10 06:40 WBC 7.11 RBC 3.60 L Hgb 11.2 L Hct 33.5 L MCV 93 MCH 31.1 MCHC 33.4 RDW 15.4 H Plt Count 178 MPV 10.4 Immature Gran % 0.6 Neutrophils % 82.9 Lymphocytes % 4.5 Monocytes % 10.5 Eosinophils % 1.1 Basophils % 0.4 Nucleated RBC % 0.0 Absolute Neutrophils 5.89 Absolute Lymphocytes 0.32 L Absolute Monocytes 0.75 Absolute Eosinophils 0.08 Absolute Basophils 0.03 Sodium 128 L Potassium 3.4 L Chloride 90 L Carbon Dioxide 22.6 Anion Gap 15.4 H BUN 94 H* Creatinine 4.6 H* Est GFR (CKD-EPI 2020) 13.13 Glucose 269 H Calcium 9.5 Magnesium 2.0 Creatine Kinase 444 H C-Reactive Protein > 25.00 H 23.49 H Urine Color Yellow Urine Clarity Clear Urine pH 5.0 Ur Specific [place] 1.020 Urine Protein Trace H Urine Ketones Negative Urine Blood Negative Urine Nitrite Negative Urine Bilirubin Negative Urine Urobilinogen 1.0 H Ur Leukocyte Esterase Negative Urine RBC Negative Urine WBC Negative Ur Epithelial Cells Rare Urine Crystals Negative Urine Bacteria Negative Urine Casts 0-2 Hyaline Urine Mucus Negative Ur Culture Indicated? No Urine Glucose Negative Add-On Test Request DONE DONE 11/13/23 09:59 WBC RBC Hgb Hct MCV MCH MCHC RDW Plt Count MPV Immature Gran % Neutrophils % Lymphocytes % Monocytes % Eosinophils % Basophils % Nucleated RBC % Absolute Neutrophils Absolute Lymphocytes Absolute Monocytes Absolute Eosinophils Absolute Basophils Sodium Potassium Chloride Carbon Dioxide Anion Gap BUN Creatinine Est GFR (CKD-EPI 2020) Glucose Calcium Magnesium Creatine Kinase C-Reactive Protein Urine Color Red Urine Clarity Cloudy Urine pH 5.5 Ur Specific [place] 1.020 Urine Protein >=300 H Urine Ketones 15 H Urine Blood Large H Urine Nitrite Positive H Urine Bilirubin Moderate H Urine Urobilinogen 1.0 H Ur Leukocyte Esterase Large H Urine RBC >50 H Urine WBC >50 H Ur Epithelial Cells Not Applicable Urine Crystals Not Applicable Urine Bacteria Not Applicable Urine Casts Urine Mucus Not Applicable Ur Culture Indicated? Yes Urine Glucose Negative Add-On Test Request Time Spent with Patient Time Spent with Patient: 35-49 minutes Time was spent: preparing to see the patient(eg.review tests), obtaining and/or reviewing separately otained hiistory, ordering medications,tests, procedures, referring, communicating with other health field care manager, indepentently interpreting results and counseling the patient
[2023-11-13 11:05] LABS: C Diff PCR Negative (Negative)
[2023-11-13 11:20] LABS: Lab Add On Test DONE; Procalcitonin 0.6 ng/mL
[2023-11-13] MEDS: Normal Saline 1,000 ML 1000 ML IV (11:34)
[2023-11-13 11:37] LABS: Hemoglobin A1C 6.6 % (<5.7)
[2023-11-13] MEDS: Normal Saline Flush 10 ML SYR (13:02)
[2023-11-13] MEDS: LINEZOLID 600 MG/300 ML BAG 300 MG IVPB ×2 (13:03→23:50)
--- NOTE | 2023-11-13 13:52 | PT.INIE ---
PT Notes Visit Reasons: Cellulitis Inpatient Physical Therapy Evaluation Date: 11/13/23 Referring Doctor: Elizabet Mccord NP PT Orders: PT CONSULT: limited ability to ambulate Precautions: fall, contact Patient Profile/Admitting Diagnosis: Patient admitted for medical management of cellulitis with diabetic foot ulcer after presenting to ER with general malaise. Social History/Home Situation: Lives in a private home with his and several adult children. Split level home with 12 indoor steps to enter. Normally uses scooter in the home, although is able to manage stairs and walk short distances either with 4WW or without AD. Admits to falls in the past, usually if he tries to walk too far. Estimates he can walk about 50' at baseline. Equipment Owned/DME: 4WW, scooter Subjective: Mario is sitting up to commode upon initiation of session. States that he was able to walk there with FWW and help from nursing. He feels weak and fatigued. Objective: General Observation: Obese male. Pleasant and cooperative. IV in LUE. Bowen catheter and telemetry in place. Multiple toe amputations on each foot. Diffuse petechiae throughout trunk and bilat UEs. Nursing alerted. Mental Status: A&Ox3. Pain: chronic LBP ROM: Right Upper Extremity: WFL Left Upper Extremity: WFL Right Lower Extremity: hip motion limited by abdominal girth. Tolerates 100* flexion. Knee motion 0-110. Left Lower Extremity: hip motion limited by abdominal girth. Tolerates 100* flexion. Knee motion 0-110. Strength: Right Upper Extremity: WFL Left Upper Extremity: WFL Right Lower Extremity: Hip flexion 4/5. Quads 4/5. HS 3/5. Ankle DF 3/5 or greater. Left Lower Extremity: Hip flexion 4/5. Quads 4/5. HS 3/5. Ankle DF 3/5 or greater. Sensation: asensate bilat feet Bed Mobility/Transfers: sit-stand: SBA, cues for technique stand-sit: SBA, cues for technique sit-supine: mod A for management of lines Gait: Ambulates 20' with FWW, CGA. Requires cues for equipment management, and demonstrates significant forward trunk flexion. Wide BRENDAN, with slow, shuffling gait. Balance: Static Sitting: good Dynamic Sitting: fair Static Standing: fair Dynamic Standing: fair Special Tests: Mobility Limitations Standardized Measure [employer] AM-PAC 6 clicks Basic Mobility Inpatient Short Form: Raw Score: 19 CMS Score: 42% impairment Informed Consent/Education: Patient instructed in purpose of PT consult and plan of care. Treatment: Initial Evaluation (76016) Therapeutic Exercises (87577): Performed sit-stand 5x with cues for hand placement. Demonstrates increasing GALLAGHER. Instruction in LE strengthening activities for completion between PT sessions 1. SLR 10x each 2. heel slides 10x each 3. ankle pumps 10x Assessment: Patient is a 68 year old male referred to physical therapy services with the diagnosis of limited ability to ambulate. Patient presents with clinical signs and symptoms consistent with diagnosis, with acute on chronic mobility deficits and h/o falls. He requires skilled PT intervention to maximize mobility and safety during acute care stay, and will benefit from HH PT upon return home. He currently demonstrates the following impairment level findings: 1. Decreased activity tolerance 2. decreased LE strength 3. decreased skin integrity 4. decreased sensation in bilat LEs, with h/o bilat amputations 5. gait impairments Impairments are contributing to the following functional limitations: 1. unable to ambulate household distances 2. unable to demonstrate safe equipment management during transfers and gait 3. unable to manage stairs Patient is assessed as Moderate 15140 complexity based on the following: History: as above. Complicating factor of poor baseline mobility and multiple medical comorbidities. Examination: functional limitations as noted above Presentation: evolving due to acute medical status Decision Making: moderate complexity Goals: Goals X1 week 1. Supine-Sit : independent 2. Sit-Supine : independent 3. Sit-Stand : independent 4. Stand-Sit : independent 5. Bed-Chair : supervision with FWW 6. Chair-Bed : supervision with FWW 7. Gait : supervision with FWW x 30' 8. Stairs : able to ascend and descend 12 steps with bilat rails, SBA Plan of Care/Treatment Plan: 1-2x/day, 7 days/week x 1 week. Plan of care has been reviewed with the PROJECT MANAGER INTERIOR DESIGN providing the service under Physical Therapy direction. Initiate Physical Therapy intervention for strengthening, bed mobility, transfers, gait, stairs, balance training, use of assistive device. DISCHARGE RECOMMENDATIONS: Home with services ( PT) TREATMENT CODE/TIME: 0240-2078 (42984, 04642) Salena Lopez, PT, DPT [facility] = [facility] All Active Problems (Updated 11/13/23 @ 10:58 by Elizabet Mccord NP) Gram-positive bacteremia (Acute) Cellulitis (Acute) Atrial fibrillation with RVR (Acute) Acute kidney injury superimposed on chronic kidney disease (Acute) CHF (congestive heart failure) (Chronic) History of: (Active) Right frozen shoulder, resolved. Right elbow tendinitis, now resolved. S/P hydrocele repair. 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 History of metatarsal fracture. Metabolic syndrome X (Active) Dyslipidemia (Active) Triglycerides greater than 600 and HDL in the 20s, consistent with metabolic syndrome. Atrial fibrillation (Active) Tinea cruris (Active) Venous stasis syndrome (Active) Morbid obesity (Acute) NM of 46. Gastroesophageal reflux disease (Active) Diabetes mellitus type 2 (Acute) Uncontrolled, usually on high dose insulin; known retinopathy and mild nephropathy. Benign hypertension (Active) Umbilical hernia (Active) Cellulitis and abscess of leg (Acute) Recurrent.
--- NOTE | 2023-11-13 14:30 | DI.US_ITS ---
APPROVED REPORT EXAM: Comprehensive 2D, Doppler, and color-flow Echocardiogram Patient Location: In-Patient Room/Bed: 212 Senior Security Analyst: Jovany Walker RDCS (AE) Indications: bacteremia Other Information Technically limited study due to body habitus, inability to position patient. Conclusion A technically very limited study. 1. LA mildly dilated, other chambers normal sizes. 2. LV function appears normal, EF estimated at 55%. Normal RV function. 3. NO VEGETATIONS on the MV,TV and AV. PV not well visualized.Mild to moderate MR, moderate TR with m ild to moderate phtn ( PAS 48 mmHg ). 4. No pericardial effusion. Wall motion Left Ventricle The left ventricle is normal size. Subopitmal apical imaging due to body habitus. There is normal lef t ventricular wall thickness. There is no ventricular septal defect visualized. Right Ventricle Right ventricle is mild to moderately dilated. Right ventricular systolic function is grossly normal. Atria Left atrium is severely dilated. Right atrium is severely dilated. The interatrial septum is intact w ith no evidence for an atrial septal defect. Aortic Valve Aortic valve is thickened but has adequate excursion. Aortic valve is trileaflet. There is no aortic valvular stenosis. No aortic regurgitation is present. Mitral Valve The mitral valve is normal in structure. No evidence of mitral valve stenosis. Moderate mitral regurg itation. Tricuspid Valve The tricuspid valve is normal in structure. There is no tricuspid valve stenosis. Moderate tricuspid regurgitation. The RVSP is 48.8 mmHg. Pulmonic Valve The pulmonary valve is normal in structure. There is no pulmonic valvular stenosis. There is no pulmo [place] valvular regurgitation. Great Vessels The aortic root is normal in size. Ascending aorta is not well visualized. Aortic arch is not well vi sualized. The IVC collapses <50% with inspiration. Pericardium There is no pericardial effusion. 2D Dimensions IVSD d PLAX 0.79 cm M: 0.6-1.2 Ao Root d 3.11 cm M: 3.1 - 3.7 LVPW d PLAX 0.82 cm M: 0.6 - 1.2 LVID d PLAX 4.95 cm M: 4.2 - 5.8 LVDs 3.37 cm M: 2.5 - 4.0 LV EF Teichholz 59.8 % FS 31.91 % LV EDV (Teich) 115.3 mL LV ESV (Teich) 46.4 mL Stroke Vol Index (Teich) 29.22 LA Volume LA Length A4C 7.5 cm LA Length A2C LA Area A4C s 33.65 cm2 LA Area A2C s LA Vol A4C A-L 127.85 mL LA Vol A2C A-L LA Vol Biplane A-L LA Vol A4C MOD 123.4 mL LA Vol A2C MOD LA Vol BP MOD RA Volume RA Area A4C 30.7 cm2 RA ESV A4C (A-L) 127.6mL RA Vol/BSA A4C A-L RA Length A4C 6.3 cm RA ESV A4C (MOD) 116.9mL LV Diastology MV E Vmax 1.12 (0.4-1.3 m/s) Aortic Valve AoV Vmax 1.28 m/s LVOT Vmax 0.95 m/s AoV Peak Grad 6.5 mmHg LVOT Peak Grad 3.6 mmHg AoV Area (Vmax) 2.41 cm2 LVOT VTI 0.174 m AoV VTI 0.268 m LVOT Mean Grad 2.0 mmHg AoV Mean [place]. 0.86 m/s LVOT SV 56.08 mL AoV Mean Grad 3.5 mmHg LVOT Diam s 2.00 cm AoV Area (VTI) 2.09 cm2 Velocity Ratio 0.74 Mitral Valve MV DT 183 (160-240 msec) Pulmonary Valve PV Vmax 0.93 (0.5-1.5 m/s) PV Peak Grad 3.4 mmHg PV Mean [place] 0.65 m/s PV Mean Grad 1.9 mmHg Tricuspid Valve RA Pressure 8.00 mmHg TR Vmax 3.20 m/s TR Peak Grad 40.8 mmHg RVSP (TR) 48.8 mmHg
[2023-11-13 17:15] LABS: INR 1.4 (0.9-1.1); Prothrombin Time 13.6 sec (9.1-11.1)
[2023-11-13 17:29] LABS: PTT Activated 37.4 sec (23.6-32.8)
[2023-11-13] MEDS: Lactated Ringers 1,000 ML 125 ML IV (19:41)
[2023-11-13 19:59] LABS: Fibrinogen (Stat) (Littleton) 835 mg/dL (208-434)
[2023-11-13] MEDS: Metoprolol 25 MG TAB PO (20:48)
[2023-11-13] MEDS: Metoprolol 50 MG TAB 100 MG PO (20:48)
[2023-11-13] MEDS: Atorvastatin 40 MG TAB PO (20:48)
[2023-11-13] MEDS: Insulin Glargine 300 UNITS/3 ML PEN 66 UNITS SC (22:10)
--- NOTE | 2023-11-14 | DI.CT_ITS ---
Exam(s) CT ABDOMEN PELVIS WO EXAM: CT ABDOMEN PELVIS WO CLINICAL HISTORY: air fluid levels on plain film and gastric distent. TECHNIQUE: Imaging Protocol: Axial computed tomography images with coronal and sagittal reformatted images were created and reviewed. COMPARISON: CT ABD PELVIS WO CONTRAST from 10/28/2014 CR XR ABDOMEN FLAT UPRIGHT from 11/14/2023 FINDINGS: The examination is limited due to patient motion artifact. ABDOMEN: Lung Bases: Coronary artery calcifications and/or stents. Mild cardiomegaly. Gynecomastia. There a re small infiltrates in the lung bases bilaterally. There are nonspecific. Liver: Normal density. No measurable mass. Gallbladder and biliary tract: No radiodense calculus or biliary ductal dilation. Pancreas: Normal density, no abnormal calcifications or inflammatory process. Spleen: Normal. Kidneys: Normal size, contour and axis.No radiodense stones or obstructive uropathy. No masses seen. Adrenal glands: No mass is seen. Lymph nodes: Within normal limits. Abdominal Aorta: Abdominal portion non-dilated. Atherosclerosis. PELVIS: Bladder:There is a Bowen catheter in the decompressed urinary bladder. There is a small amount of ai r in the urinary bladder likely reflecting placement of the Bowen catheter. Bowel: There is diverticulosis of the colon without evidence of diverticulitis. There is no evidence of bowel obstruction. There is no wall thickening seen in the stomach. There is mild thickening of the wall of the duodenum and proximal jejunum. The remainder of the bowel is unremarkable. No evid ence of appendicitis. Peritoneal cavity: No ascites, collection or mesenteric inflammatory response. No free air. Reproductive organs: Unremarkable as visualized. Bones: Within normal limits. Sternal wires are in place. Soft Tissues: There is a midline anterior abdominal wall fat containing hernia. IMPRESSION: 1. No evidence of bowel obstruction. 2. Mild wall thickening seen in the duodenum and proximal jejunum which may represent an infectious o r inflammatory duodenitis/enteritis. 3. Colonic diverticulosis without evidence of acute diverticulitis. 4. Small infiltrates in the lower lobes bilaterally. These are nonspecific and may represent atelect asis or pneumonia. Please correlate clinically. RADIATION DOSE DELIVERED: 1,876.59mGy.cm Total DLP DATA REPOSITORY: All CT scans at this facility are submitted to the National Radiology Data Registry (NRDR) Dose Index Registry (DIR) with the [employer] ([employer]). RADIATION OPTIMIZATION: All CT scans at this facility use at least one of these dose optimization te chniques: automated exposure control; mA and/or kV adjustment per patient size (includes targeted exa ms where dose is matched to clinical indication); or iterative reconstruction.
[2023-11-14] MEDS: PIPERACILLIN/TAZO 2.25 GM in Normal Saline 50 ML IVPB ×2 (03:55→10:16)
[2023-11-14] MEDS: Lactated Ringers 1,000 ML 125 ML IV (05:47)
[2023-11-14 07:05] LABS: Abs Immature Grans 0.03 10^3/uL (0.0-0.06); Absolute Basophil Count 0.03 10^3/uL (0.0-0.2); Absolute Eosinophil Count 0.22 10^3/uL (0.0-0.7); Absolute Lymphocyte Count 0.41 10^3/uL (1.2-3.4); Absolute Monocyte Count 0.63 10^3/uL (0.1-0.8); Basophils % 0.6; Eosinophils % 4.1; HCT 30.9 % (40.0-50.0); HGB 10.2 g/dL (13.5-17.5); Immature Grans % 0.6; Lymphocytes % 7.7; MCH 30.4 pg (27.0-33.0); MCV 92 fL (80-95); MPV 9.6 fL (8.0-11.0); Monocytes % 11.8; Neutrophils % 75.2; Platelet Count 152 10^3/uL (130-400); RBC 3.35 10^6/uL (4.36-5.78); RDW 15.3 % (11.8-14.1); RDW-SD 51.8 fL; WBC 5.32 10^3/uL (4.4-10.8)
[2023-11-14 07:32] LABS: Anion Gap 13.1 mmol/L (3-11); C-Reactive Protein 17.21 mg/dL (0.0-0.3); CO2 23.9 mmol/L (21.0-32.0); Calcium 9.2 mg/dL (8.5-10.1); Chloride 93 mmol/L (98-107); Estimated GFR 15.53 (mL/min/1.73m2); Glucose 313 mg/dL (74-106); Magnesium 2.1 mg/dL (1.8-2.4); Potassium 3.4 mmol/L (3.5-5.1); Sodium 130 mmol/L (136-145)
[2023-11-14 07:34] VITALS: BP 128/73; PULSE 88; RESP 14; TEMP 36.7; O2SAT 91
[2023-11-14 07:34] LABS: BUN 96 mg/dL (7-18)
[2023-11-14] MEDS: Pantoprazole 40 MG TABCR PO (07:55)
[2023-11-14] MEDS: Clopidogrel 75 MG TAB PO (07:55)
[2023-11-14] MEDS: Metoprolol 50 MG TAB 100 MG PO ×2 (07:56→21:04)
[2023-11-14] MEDS: Isosorbide Mononitrate 60 MG TABCR 240 MG PO (07:57)
[2023-11-14] MEDS: Rivaroxaban 2.5 MG TABLET PO (07:57)
[2023-11-14] MEDS: Metoprolol 25 MG TAB PO ×2 (07:58→21:29)
[2023-11-14] MEDS: Insulin Aspart 300 UNITS/3 ML PEN SC ×3 (07:59→16:55)
[2023-11-14] MEDS: Gabapentin 300 MG CAP PO ×2 (07:59→21:05)
[2023-11-14] MEDS: Normal Saline Flush 10 ML SYR ×3 (08:00→21:07)
--- NOTE | 2023-11-14 09:48 | PDOC.CMPRO ---
Date of service: 11/14/23 Time of Service: 09:48 Care Management Progress Note Progress Note Text Progress Note Text: S/O:Ivan was sitting up in bed when CM met with him. He stated that he has been nauseated today but had received medication and was doing a bit better.Ivan had diarrhea yesterday and CM asked if it persisted. He informed CM that he vacillates from constipation to diarrhea frequently. He also complained about his back hurting. After a brief discussion, Ivan shared that he has a growth in his sacral area that is painful and when he sits or lays on it, it is very uncomfortable. Ivan has 2 sets of positive blood cultures that are growing MRSA. Repeat bvlood cultures weree drawn and have no growth at 24 hours. Ivan remains afebrile and his WBC is wnl, however his CRP is still quite high at 17.21 and his creatinine remains>4.0. A: Ivan is a 68 year old man admitted on 11/12/23 with cellulitis P:Anticipate that Mario will be discharged home, possibly with new home health services, when medically cleared. He is agreeable to services if needed. He will follow up with his PCP and plan of care and transport with family. CM will follow and continue to assess for discharge needs.
[2023-11-14 11:32] VITALS: BP 127/75; PULSE 74; RESP 18; TEMP 36.4; O2SAT 96
--- NOTE | 2023-11-14 12:00 | PT.INNT ---
Date of service: 11/14/23 Time of Service: 10:53 PT Notes Visit Reasons: Cellulitis Patient refused due to feeling nauseous, waiting on medication to get [him] sorted out. Agreeable to check back this afternoon at therapist insistence - initially tried to refuse for the day.
[2023-11-14] MEDS: Ondansetron 4 MG/2 ML VIAL IVP (12:21)
--- NOTE | 2023-11-14 12:58 | DI.RAD_ITS ---
Exam(s) XR ABDOMEN FLAT UPRIGHT EXAM: 2D digital imaging was performed. CLINICAL HISTORY: diarrhea, nausea. COMPARISON: CR,XR XR CHEST 2V PA LATERAL from 11/11/2023 TECHNIQUE: Supine and upright views of the abdomen were performed. FINDINGS: Exam is limited by patient body habitus. The exam was performed in a wheelchair. The patient is deb ble to stand. Gross evidence of free air. The stomach is distended. Air-fluid levels noted on the upright image. There is a moderate to incre ased quantity of stool. No dilated small bowel loops. IMPRESSION: Limited exam. Gastric distension. DATA REPOSITORY: RADIATION DOSE DELIVERED:
[2023-11-14] MEDS: LINEZOLID 600 MG/300 ML BAG 300 MG IVPB (13:39)
--- NOTE | 2023-11-14 14:07 | W.PM.PROGNOT ---
Date of Service Date of service: 11/14/23 Time of Service: 14:07 Assessment and Plan Assessment and plan (1) Gram-positive bacteremia: Status: Acute Assessment and plan: blood cultures positive for MRSA repeat cultures collected and pending echocardiogram with no evidence of vegetation source: diabetic foot infection (2) Cellulitis: Status: Acute Assessment and plan: diabetic foot infection with cellulitis, met criteria for severe sepsis on admission with HR > 100, RR >20, and YOLANDA, lactate >2 continue Zyvox day 3, will discontinue zosyn (? rash from pcn allergy) blood cultures positive MRSA repeat cultures pending echo shows no valvular vegetation podiatry consult pending, will be available 11/19. 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 No plain film evidence of osteomyelitis. (3) Atrial fibrillation with RVR: Status: Acute Assessment and plan: rate better controlled but still around 100, will further increase to 125 po BID continue to monitor and adjust meds as needed. fully anticoagulated on DOAC (4) Acute kidney injury superimposed on chronic kidney disease: Status: Acute Assessment and plan: creatinine above baseline of 1.5 at 4.6 avoid nephrotoxic drugs, renal dosing as needed. continue IV hydration, bolus with one liter of NS and increase maintenance rate to 125 cc/hr continue to hold ARB and diuretic vanegas catheter placed for accurate I&O and urinary retention renal US: FINDINGS: Renal size in cm: Right: 12.3. Left: 13.7. Echogenicity: Normal. Hydronephrosis: No. Cyst or mass: No. Nephrolithiasis: No. Other findings: Mild diffuse cortical thinning. Bladder:Normal. Ureteral jets: Right: Not visualized on this examination. Left: Not visualized on this examination. Prevoid vol:879 cc Postvoid vol:The patient was unable to void. Prostate: Not visualized. Renal color flow: Symmetric and within normal limits. IMPRESSION: 1. Mild cortical thinning but no evidence of hydronephrosis or renal mass is seen sonographically. 2. The patient was unable to void during the examination. The urinary bladder is grossly unremarkable. (5) Diabetes mellitus type 2: Status: Acute Assessment and plan: metformin on hold will add on A1C, last on file was 8.1 in [facility] change sliding scale to moderate increase insulin to home dosing continue to monitor and adjust as needed. (6) Morbid obesity: Status: Acute Assessment and plan: nutrition consult encourage ongoing discussed of weight loss with pcp outpatient (7) Discharge planning issues: Status: Acute Assessment and plan: DVT prophylaxis- anticoagulated on apixaban (? pharmacy review of dosing) anticipate discharge to home with resumption of services, care management following for discharge needs. discussed with DR Escudero Subjective Subjective Interval history since last seen: patient reporting loose stools, nausea, and feeling unwell. no fever. rash unchanged. Exam Const General: frail appearing and ill appearing chronically Nutritional Appearance: obese Orientation: alert, awake and oriented x3 HENMT Head: normal to inspection, normocephalic and atraumatic Face and sinus: normal facial exam Mouth: oral mucosae normal Chest Chest: normal inspection of the chest Resp Effort & Inspection: normal respiratory effort Auscultation: clear to auscultation bilaterally and diminished lung sounds Cardio Rate: regular rate Rhythm: regular rhythm GI Inspection: normal to inspection and distended Skin General skin exam: crusts (left lower extremity), dry skin and erythema Lesions: lesion noted (dorsum foot 5 cm, slough wound bed. purulent drainage) Rashes: rashes noted Neuro General: patient alert, patient awake and patient oriented x3 Extrem General: other (chronic discoloration to bilateral lower ext) Right lower extremity: foot Objective Last Vital Signs Temp 36.4 C L 11/14/23 11:32 Pulse 74 11/14/23 11:32 Resp 18 11/14/23 11:32 BP 127/75 11/14/23 11:32 Pulse Ox 96 11/14/23 11:32 Laboratory Results - last 24 hr 11/13/23 11/14/23 16:50 06:35 WBC 5.32 RBC 3.35 L Hgb 10.2 L Hct 30.9 L MCV 92 MCH 30.4 MCHC 33.0 RDW 15.3 H Plt Count 152 MPV 9.6 Immature Gran % 0.6 Neutrophils % 75.2 Lymphocytes % 7.7 Monocytes % 11.8 Eosinophils % 4.1 Basophils % 0.6 Nucleated RBC % 0.0 Absolute Neutrophils 4.00 Absolute Lymphocytes 0.41 L Absolute Monocytes 0.63 Absolute Eosinophils 0.22 Absolute Basophils 0.03 PT 13.6 H INR 1.4 H APTT 37.4 H Fibrinogen 835 H Sodium 130 L Potassium 3.4 L Chloride 93 L Carbon Dioxide 23.9 Anion Gap 13.1 H BUN 96 H* Creatinine 4.0 H* Est GFR (CKD-EPI 2020) 15.53 Glucose 313 H Calcium 9.2 Magnesium 2.1 C-Reactive Protein 17.21 H Time Spent with Patient Time Spent with Patient: 35-49 minutes Time was spent: preparing to see the patient(eg.review tests), obtaining and/or reviewing separately otained hiistory, ordering medications,tests, procedures, indepentently interpreting results and counseling the patient
[2023-11-14] MEDS: Omnipaque 350 MG/ML 50 ML BTL PO (15:02)
[2023-11-14] MEDS: Breeza Beverage 473 ML BTL PO (15:03)
[2023-11-14 15:10] VITALS: BP 132/75; PULSE 71; RESP 18; TEMP 36.1; O2SAT 96
--- NOTE | 2023-11-14 15:20 | PT.INNT ---
PT Notes Visit Reasons: Cellulitis Pt on hold, getting ready for transport to go down for CT scan, 3:16pm
--- NOTE | 2023-11-14 16:05 | PHA.REVIEW2 ---
Pharmacy Admission Review Admission Clinical Review Admission Pharmacy Review: (Updated 11/13/23 @ 14:53 by Elizabet Mccord NP) Discharge planning issues (Acute) Gram-positive bacteremia (Acute) Cellulitis (Acute) Atrial fibrillation with RVR (Acute) Acute kidney injury superimposed on chronic kidney disease (Acute) Morbid obesity (Acute) Diabetes mellitus type 2 (Acute) Cellulitis and abscess of leg (Acute) silver [From Tegaderm AG Mesh] Allergy (Mild, Unverified 11/11/23 22:05) Skin Rash Penicillins Allergy (Verified 11/11/23 22:05) amoxicillin [From Augmentin] Adverse Reaction (Unverified 11/11/23 22:05) Other (See Comment) clavulanic acid [From Augmentin] Adverse Reaction (Unverified 11/11/23 22:05) Other (See Comment) cillians Allergy (Mild, Uncoded 11/11/23 22:05) Resuscitation Status Full Code Height 5 ft 7 in Weight 131.043 kg Comments Comments/Follow Ups: Kidney function slightly improved, continue to monitor. Initial blood cultures grew MRSA, repeat blood cultures now showing no growth. Urine cultures are negative. Pharmacy Admission Review Renal Dosing Renal Dosing: BUN 96 mg/dL (7-18) H* 11/14/23 06:35 Creatinine 4.0 mg/dL (0.70-1.30) H* 11/14/23 06:35 Medications needing adjustments: Reviewed (CrCl 23.02 mL/min) List of meds needing interventions: SCr slightly decreased from 4.6 to 4 and BUN slightly increased from 94 to 96. Anticoagulation Anticoagulation: Hgb 10.2 g/dL (13.5-17.5) L 11/14/23 06:35 Hct 30.9 % (40.0-50.0) L 11/14/23 06:35 Plt Count 152 10^3/uL (130-400) 11/14/23 06:35 INR 1.4 (0.9-1.1) H 11/13/23 16:50 Creatinine 4.0 mg/dL (0.70-1.30) H* 11/14/23 06:35 DVT Prophylaxis: Intervened Medications: Rivaroxaban (Initial order was 2.5mg BID (from home med list) but that is not dosing for Afib prophylaxis. Spoke with provider and changed to 15mg QPM given kidney function.) Relevant Labs Relevant Labs: Sodium 130 mmol/L (136-145) L 11/14/23 06:35 Potassium 3.4 mmol/L (3.5-5.1) L 11/14/23 06:35 Chloride 93 mmol/L (98-107) L 11/14/23 06:35 Magnesium 2.1 mg/dL (1.8-2.4) 11/14/23 06:35 C-Reactive Protein 17.21 mg/dL (0.0-0.3) H 11/14/23 06:35 Electrolytes, C-Reactive P, ESR: Reviewed (Na 130, K 3.4) DM Control DM Control: Glucose 313 mg/dL (74-106) H 11/14/23 06:35 Hemoglobin A1c 6.6 % (<5.7) H 11/13/23 06:40 Finger Stick Blood Glucose 277 1155 Finger Stick Blood Glucose 277 1138 Finger Stick Blood Glucose 310 0759 Insulin Dosing, Diabetic Medication: Has order for SS insulin and glargine (66 units at bedtime). Glucose was 131 at 0635 this morning. Cardiac Review Cardiac Review: Troponin I < 50 ng/L (< or =60) 11/11/23 22:05 NT-Pro-B Natriuret Pep 4926 pg/mL (<300) H 11/11/23 22:05 BP, HR, EF%: Reviewed (HR/BP WNL) QTc Review QTc: Reviewed (496 on 11/11/23) IV to PO Switch IV Medications: Reviewed Home Meds Home Med List reviewed: Intervened Relevent Home Meds Not ordered & why?: On active home med list but no order: allopurinol, bumetanide (on hold per H+P), losartan (on hold per H+P), metformin (on hold per H+P) Reached out to provider about patients allopurinol. Current Meds Current Medication Order Review: Reviewed Pharmacy Antibiotic Review Relevant Labs: Relevant Labs 11/14/23 06:35 C-Reactive Protein 17.21 H Pharmacy Antibiotic Activity: C/S review, D/C antibiotic and Reviewed, no change Comments: Zosyn was discontinued due to rash on patient (has documented allergy to penicillin). Continues on Linezolid 600mg q12h day 3. C-RP trending down, now at 17.21. Comments Comments/Follow Ups: Kidney function slightly improved, continue to monitor. Initial blood cultures grew MRSA, repeat blood cultures now showing no growth. Urine cultures are negative.
[2023-11-14] MEDS: Metoclopramide 10 MG/2 ML VIAL IVP (17:05)
[2023-11-14] MEDS: Potassium Chloride 20 MEQ TABCR PO (17:05)
[2023-11-14] MEDS: Atorvastatin 40 MG TAB PO (21:05)
[2023-11-14 21:14] VITALS: BP 150/74; PULSE 103; RESP 18; TEMP 36.8; O2SAT 95
[2023-11-14] MEDS: Insulin Glargine 300 UNITS/3 ML PEN 66 UNITS SC (21:29)
[2023-11-14] MEDS: Rivaroxaban 15 MG TABLET PO (21:52)
[2023-11-15] MEDS: LINEZOLID 600 MG/300 ML BAG 300 MG IVPB ×3 (01:38→23:07)
[2023-11-15 01:54] VITALS: BP 149/78; PULSE 76; RESP 18; TEMP 37.2; O2SAT 94
[2023-11-15] MEDS: Mylanta Suspension 30 ML CUP PO (02:22)
[2023-11-15 08:20] VITALS: BP 153/78; PULSE 80; RESP 20; TEMP 36.9; O2SAT 92
--- NOTE | 2023-11-15 08:59 | W.PM.PROGNOT ---
Date of Service Date of service: 11/15/23 Time of Service: 08:59 Assessment and Plan Assessment and plan (1) Gram-positive bacteremia: Status: Acute Assessment and plan: blood cultures positive for MRSA repeat cultures collected and showed no growth at 24 hours on 3 of 4 bottles; 1 bottle positive for GPC, probably contaminant awaiting the next 24 hours to obtain clear determination. Will continue Zyvox. echocardiogram completed and w/o evidence of vegetation Probable source might be diabetic foot infection; urine is negative. (2) Cellulitis: Status: Acute Assessment and plan: diabetic foot infection with cellulitis: On admission HR > 100, RR >20, and YOLANDA, lactate >2 met criteria for severe sepsis Will continue Zyvox day 4, podiatry consult pending, will be available 11/19, wound care consult pending sunday11/16/23, dressing as per nursing until seen. Keep foot elevated. Repeat CRP on, 11/16/2023, was trending downward from over 25 to 17.21 xray: No evidence of osteomyelitis;s/p amputations of the 2nd and 3rd toes (3) Severe sepsis due to methicillin resistant Staphylococcus aureus (MRSA) with acute organ dysfunction: Status: Acute Assessment and plan: As above on admission , now resolved (4) Atrial fibrillation with RVR: Status: Acute Assessment and plan: Not on telemetry at this time, rate is controlled continue continue metoprolol Anticoagulated on Xeralto renal dosing (5) Acute kidney injury superimposed on chronic kidney disease: Status: Acute Assessment and plan: creatinine 4.6 on admission, today 4.0 Due to urinary retention, also considering postrenal YOLANDA but might be chronic due to comorbidities despite normal-sized kidneys on renal ultrasound. Urology consult avoid nephrotoxic drugs, renal dosing as needed. Oral hydration well-tolerated, IV hydration was discontinued continue to hold ARB and diuretic New adjusted dose of allopurinol ordered vanegas catheter placed for accurate I&O and urinary retention renal US: FINDINGS: Renal size in cm: Right: 12.3. Left: 13.7. Echogenicity: Normal. Hydronephrosis: No. Cyst or mass: No. Nephrolithiasis: No. Other findings: Mild diffuse cortical thinning. Bladder:Normal. Ureteral jets: Right: Not visualized on this examination. Left: Not visualized on this examination. Prevoid vol:879 cc Postvoid vol:The patient was unable to void. Prostate: Not visualized. Renal color flow: Symmetric and within normal limits. IMPRESSION: 1. Mild cortical thinning but no evidence of hydronephrosis or renal mass is seen sonographically. 2. The patient was unable to void during the examination. The urinary bladder is grossly unremarkable. (6) Diabetes mellitus type 2: Status: Acute Assessment and plan: metformin on hold will add on A1C, last on file was 8.1 in [facility] change sliding scale to moderate increase insulin to home dosing continue to monitor and adjust as needed. (7) Morbid obesity: Status: Acute Assessment and plan: nutrition consult pending Counseled for ongoing discussed of weight loss with pcp as outpatient (8) Discharge planning issues: Status: Acute Assessment and plan: DVT prophylaxis- anticoagulated on Xeralto for atrial fibrillation anticipate discharge to home with resumption of HH services, care management following for discharge needs. discussed with DR Escudero Subjective Subjective Interval history since last seen: Patient reports feeling better, sleeping poorly, tolerating clear liquid diet well. Patient denies pain, night sweats, fever or chills, nausea, vomiting or constipation, dysuria. Patient reports having extra secretions in his airway, no coughing at the time of the exam. Exam Narrative Exam Narrative: Constitutional The patient is sitting in chair comfortable and cooperative during the interview. The patient is without acute distress and has obese body HENMT: Head is atraumatic and normocephalic. Facial structures with normal appearance Neck: no meningeal signs Neuro:alert and oriented to self, person, place, time and situation. No neurological focal deficit Chest:Chest is symmetrical and normal appearance Resp: Normal respiratory pattern, speaks in full sentences, unlabored breathing, sligght expiratory wheezing mid- lung bilaterally, good air flow otherwise Cardio: S1, S2, no murmur., bilateral radial and dorsalis pedis pulses are positive, palpable GI: Abdomen is not distended, soft and non tender, bowel sounds are present : No bladder distension; vanegas Back/spine/Pelvis: No back tenderness, normal alignment Integumentary: oozing lesion to right LE, Extremities: strength 5/5 to bilateral lower and upper extremities,feet are swollen Psych: RASS 0, congruent mood and normal affect. Objective Last Vital Signs Temp 36.9 C 11/15/23 08:20 Pulse 80 11/15/23 08:20 Resp 20 11/15/23 08:20 BP 153/78 H 11/15/23 08:20 Pulse Ox 92 11/15/23 08:20 Time Spent with Patient Time Spent with Patient: >50 minutes Time was spent: preparing to see the patient(eg.review tests), ordering medications,tests, procedures, referring, communicating with other health child care lead teacher, indepentently interpreting results, counseling the patient and care coordination
[2023-11-15] MEDS: Isosorbide Mononitrate 60 MG TABCR 240 MG PO (09:19)
[2023-11-15] MEDS: Gabapentin 300 MG CAP PO ×2 (09:20→20:34)
[2023-11-15] MEDS: Potassium Chloride 20 MEQ TABCR PO ×2 (09:20→12:02)
[2023-11-15] MEDS: Pantoprazole 40 MG TABCR PO (09:21)
[2023-11-15] MEDS: Allopurinol 300 MG TAB PO (09:22)
[2023-11-15] MEDS: Clopidogrel 75 MG TAB PO (09:22)
[2023-11-15] MEDS: Metoprolol 50 MG TAB 100 MG PO ×2 (09:22→20:34)
[2023-11-15] MEDS: Polyethylene Glycol 3350 17 GM PACKET PO (09:24)
[2023-11-15] MEDS: Metoclopramide 10 MG/2 ML VIAL IVP ×3 (09:25→16:49)
[2023-11-15] MEDS: Metoprolol 25 MG TAB PO ×2 (09:31→20:34)
[2023-11-15] MEDS: Insulin Aspart 300 UNITS/3 ML PEN SC ×3 (09:35→16:52)
--- NOTE | 2023-11-15 12:56 | PTTR_ITS ---
Date of service: 11/15/23 Time of Service: 11:25 PT Notes Visit Reasons: Cellulitis Inpatient Physical Therapy Treatment Note [facility] Date: 11/15/23 PRECAUTIONS: Fall, activity as tolerated. Contact precautions in place. SUBJECTIVE: Patient reports fatigue, reports not sleeping well due to back pain and thin mattress. Reports being constipated and becoming well acquainted with bedside commode. AFTERNOON: Patient appears in better spirits. Reports feeling hopeful that he will be able to sleep well tonight. OBJECTIVE: Sitting up in bedside chair, Bowen catheter in place. Agreeable to therapy so long as he can remain seated, due to his bowel struggles. ? PAIN: patient reports discomfort from constipation, but no pain. VITALS: monitored by nursing staff. ? BED MOBILITY/TRANSFERS? Rolling L/R: not assessed Supine-sit: not assessed ? Sit-supine: not assessed ? Sit-stand: not assessed ? Stand-sit: not assessed ? Bed-Chair: not assessed ? Chair-bed: not assessed ? Therapeutic Exercises ([id number]): Direct one-on-one instruction in therapeutic exercises to develop strength, endurance, range of motion and flexibility. ? Exercises: MORNING - patient demonstrates what he has been instructed to do and what he feels as though he can do vs where he struggles. * ankle pumps x10 * LAQ's x10 * heel slides x10 * SLR - unable. Patient reports this is due to his legs being too short. AFTERNOON: This clinician brings theraband to increase the difficulty of patient's exercises where he reports they are easy, alter exercises that are too difficult. * LAQ x10 vs green theraband * hamstring pulls x10 vs green theraband * leg press x10 vs blue theraband * hip abduction x10 vs green theraband * shoulder rows x10 vs green theraband * lat press x10 vs green theraband Patient requires ample rest in between periods of exertion, ~2 minutes to catch his breath between each pair of exercises. Verbal and visual cues provided for appropriate trajectory and muscle recruitment. Provided skilled instruction in proper exercise performance Provided skilled manual cues to facilitate proper muscle recruitment and/or form. ASSESSMENT:? Patient tolerates therapy well, reports no increase in fatigue after morning treatment session however reports some muscle fatigue after afternoon session. PLAN: Continue global strengthening per plan of care to within patient tolerance until patient is medically cleared for discharge. TREATMENT CODE/TIME: 19 minutes beginning at 11:25 and 22 minutes beginning at 14:20 for a total of 41 minutes today.
[2023-11-15 13:41] LABS: Abs Immature Grans 0.08 10^3/uL (0.0-0.06); Absolute Basophil Count 0.04 10^3/uL (0.0-0.2); Absolute Eosinophil Count 0.19 10^3/uL (0.0-0.7); Absolute Lymphocyte Count 0.47 10^3/uL (1.2-3.4); Absolute Monocyte Count 0.73 10^3/uL (0.1-0.8); Absolute Neutrophil Count 4.83 10^3/uL (1.2-6.7); Basophils % 0.6; HCT 30.3 % (40.0-50.0); HGB 9.9 g/dL (13.5-17.5); Immature Grans % 1.3; Lymphocytes % 7.4; MCH 30.7 pg (27.0-33.0); MCHC 32.7 % (32.0-36.0); MCV 94 fL (80-95); MPV 9.4 fL (8.0-11.0); Monocytes % 11.5; Neutrophils % 76.2; Platelet Count 138 10^3/uL (130-400); RBC 3.23 10^6/uL (4.36-5.78); RDW 15.6 % (11.8-14.1); WBC 6.34 10^3/uL (4.4-10.8)
[2023-11-15 13:57] LABS: Anion Gap 10.6 mmol/L (3-11); CO2 24.4 mmol/L (21.0-32.0); CREATININE 3.4 mg/dL (0.70-1.30); Chloride 93 mmol/L (98-107); Estimated GFR 18.88 (mL/min/1.73m2); Glucose 324 mg/dL (74-106); Sodium 128 mmol/L (136-145)
[2023-11-15 13:59] LABS: BUN 98 mg/dL (7-18)
[2023-11-15] MEDS: Mupirocin 2% Oint. 22 GM TUBE TP (14:13)
[2023-11-15 15:00] VITALS: BP 143/78; PULSE 75; RESP 18; TEMP 37.2; O2SAT 92
--- NOTE | 2023-11-15 16:09 | PDOC.CMPRO ---
Date of service: 11/15/23 Time of Service: 16:09 Care Management Progress Note Progress Note Text Progress Note Text: Continue to await culture and sensitivities. Awaiting podiatry consult (11/19/23). Mario will be discharged home, possibly with new home health services, when medically cleared. He is agreeable to services if needed. He will follow up with his PCP and plan of care and transport with family. CM will follow and continue to assess for discharge needs.
--- NOTE | 2023-11-15 16:35 | W.UROLOGYCON ---
Date of service: 11/15/23 Time of Service: 16:35 Assessment and Plan Assessment and plan (1) Elevated serum creatinine: Status: Acute (2) Urinary retention with incomplete bladder emptying: Status: Acute Assessment and plan: This gentleman has a number of possible etiologies for his elevated serum creatinine. His incomplete bladder emptying is certainly 1 possibility. It will be interesting to see how his serum creatinine responds to the indwelling catheter. If we find that his creatinine drops fairly rapidly, there probably is at least some component of bladder outlet obstruction to his elevated creatinine, and he would likely benefit from an alpha-ralph. In any event, I would leave the catheter in place until his serum creatinine normalizes. History of Present Illness History of Present Illness Chief Complaint: Incomplete bladder emptying Narrative: This is a 68-year-old gentleman who has a history of diabetes mellitus and chronic kidney disease. He is followed by the providers at the [facility]. Unfortunately, I do not have access to his [facility] EMR records. He is currently hospitalized with gram-positive bacteremia. He was found to have the serum creatinine elevated above his typical baseline studies. He was initially able to void, but then was unable to empty his bladder and a Bowen catheter was placed. He was not having flank pain. His imaging studies had not revealed hydronephrosis. He does not recall any episodes of urinary retention previously. He has not had any type of urologic surgery. He does not recall ever being on any type of urologic medication. He does admit to a recent bump in his creatinine while he was at the [place]. The patient and his tell me that it was felt that his increased creatinine at that time was related to dehydration. Review of Systems Narrative: No fevers or chills No vision change or dysphasia Diabetes Shortness of breath with exertion. No hemoptysis Atrial fibrillation. No chest pain No nausea, vomiting, hepatitis, ulcers, jaundice No seizures, strokes No bleeding disorders or anemia No gout PFSH All Active Problems (Updated 11/19/23 @ 15:32 by Salena Chua DPM) Osteomyelitis of left foot (Acute) Atherosclerotic PVD with ulceration (Acute) Venous insufficiency (Acute) Ulcer of left lower leg (Acute) Chronic ulcer of left foot with fat layer exposed (Acute) Unstageable pressure ulcer of left foot (Acute) Acute insomnia (Acute) ERENDIRA (obstructive sleep apnea) (Chronic) Diabetic ulcer of foot associated with diabetes mellitus due to underlying condition, with bone involvement without evidence of necrosis (Acute) Chest pain (Acute) Urinary retention with incomplete bladder emptying (Acute) Elevated serum creatinine (Acute) Severe sepsis due to methicillin resistant Staphylococcus aureus (MRSA) with acute organ dysfunction (Acute) Discharge planning issues (Acute) Gram-positive bacteremia (Acute) Cellulitis (Acute) Atrial fibrillation with RVR (Acute) Acute kidney injury superimposed on chronic kidney disease (Acute) CHF (congestive heart failure) (Chronic) History of: (Active) Right frozen shoulder, resolved. Right elbow tendinitis, now resolved. S/P hydrocele repair. 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 History of metatarsal fracture. Metabolic syndrome X (Active) Dyslipidemia (Active) Triglycerides greater than 600 and HDL in the 20s, consistent with metabolic syndrome. Atrial fibrillation (Active) Tinea cruris (Active) Venous stasis syndrome (Active) Morbid obesity (Acute) WA of 46. Gastroesophageal reflux disease (Active) Diabetes mellitus type 2 (Acute) Uncontrolled, usually on high dose insulin; known retinopathy and mild nephropathy. Benign hypertension (Active) Umbilical hernia (Active) Cellulitis and abscess of leg (Acute) Recurrent. Social History Smoking/Tobacco Use Status: Former Tobacco Use Smoking risk assessment performed?: Yes Alcohol Intake: never Drug use: Never Substance use type: does not use Housing: house Do you feel safe at home: Yes Do you feel safe in your relationship?: Yes Exam Narrative Exam Narrative: He is an obese gentleman in no obvious distress. He sitting up in a chair His vital signs are documented elsewhere His abdomen is obese but soft with no peritoneal signs There is a Bowen catheter in place draining clear urine He is awake and alert Results Last Vital Signs Temp 37.2 C 11/15/23 15:00 Pulse 75 11/15/23 15:00 Resp 18 11/15/23 15:00 BP 143/78 H 11/15/23 15:00 Pulse Ox 92 11/15/23 15:00 Labs 11/20/23 06:30 11/20/23 14:10 Labs: Laboratory Results - last 24 hr 11/15/23 13:33 WBC 6.34 RBC 3.23 L Hgb 9.9 L Hct 30.3 L MCV 94 MCH 30.7 MCHC 32.7 RDW 15.6 H Plt Count 138 MPV 9.4 Immature Gran % 1.3 Neutrophils % 76.2 Lymphocytes % 7.4 Monocytes % 11.5 Eosinophils % 3.0 Basophils % 0.6 Nucleated RBC % 0.0 Absolute Neutrophils 4.83 Absolute Lymphocytes 0.47 L Absolute Monocytes 0.73 Absolute Eosinophils 0.19 Absolute Basophils 0.04 Sodium 128 L Potassium 4.0 Chloride 93 L Carbon Dioxide 24.4 Anion Gap 10.6 BUN 98 H* Creatinine 3.4 H Est GFR (CKD-EPI 2020) 18.88 Glucose 324 H Calcium 9.0
[2023-11-15] MEDS: Rivaroxaban 15 MG TABLET PO (17:13)
[2023-11-15 20:31] VITALS: BP 116/67; PULSE 78; RESP 18; TEMP 37.3; O2SAT 93
[2023-11-15] MEDS: Atorvastatin 40 MG TAB PO (20:34)
[2023-11-15] MEDS: Normal Saline Flush 10 ML SYR (20:35)
[2023-11-15 21:02] VITALS: PULSE 78; RESP 18; O2SAT 93
[2023-11-15] MEDS: Insulin Glargine 300 UNITS/3 ML PEN 66 UNITS SC (22:01)
[2023-11-15 23:18] VITALS: BP 145/78; PULSE 77; RESP 18; TEMP 37.2; O2SAT 93
[2023-11-16 02:15] VITALS: RESP 18
[2023-11-16 07:10] VITALS: BP 135/76; PULSE 77; RESP 18; TEMP 36.9; O2SAT 93
[2023-11-16 07:39] LABS: Anion Gap 8.3 mmol/L (3-11); CO2 25.7 mmol/L (21.0-32.0); CREATININE 3.1 mg/dL (0.70-1.30); Calcium 8.9 mg/dL (8.5-10.1); Chloride 96 mmol/L (98-107); Estimated GFR 21.09 (mL/min/1.73m2); Glucose 261 mg/dL (74-106); Magnesium 2.2 mg/dL (1.8-2.4); Potassium 3.7 mmol/L (3.5-5.1); Sodium 130 mmol/L (136-145)
[2023-11-16 07:40] LABS: BUN 92 mg/dL (7-18)
[2023-11-16 07:49] LABS: Abs Immature Grans 0.11 10^3/uL (0.0-0.06); Absolute Basophil Count 0.03 10^3/uL (0.0-0.2); Absolute Eosinophil Count 0.18 10^3/uL (0.0-0.7); Absolute Lymphocyte Count 0.65 10^3/uL (1.2-3.4); Absolute Monocyte Count 0.62 10^3/uL (0.1-0.8); Absolute Neutrophil Count 5.09 10^3/uL (1.2-6.7); Basophils % 0.4; Eosinophils % 2.7; HCT 29.7 % (40.0-50.0); HGB 9.7 g/dL (13.5-17.5); Immature Grans % 1.6; Lymphocytes % 9.7; MCH 30.2 pg (27.0-33.0); MCHC 32.7 % (32.0-36.0); MCV 93 fL (80-95); MPV 10.2 fL (8.0-11.0); Monocytes % 9.3; Neutrophils % 76.3; Platelet Count 159 10^3/uL (130-400); RBC 3.21 10^6/uL (4.36-5.78); RDW 15.7 % (11.8-14.1); RDW-SD 53.1 fL; WBC 6.68 10^3/uL (4.4-10.8)
[2023-11-16] MEDS: Polyethylene Glycol 3350 17 GM PACKET PO (07:59)
[2023-11-16] MEDS: Metoprolol 50 MG TAB 100 MG PO ×2 (08:00→20:14)
[2023-11-16] MEDS: Clopidogrel 75 MG TAB PO (08:00)
[2023-11-16] MEDS: Metoprolol 25 MG TAB PO ×2 (08:01→20:13)
[2023-11-16] MEDS: Isosorbide Mononitrate 60 MG TABCR 240 MG PO (08:01)
[2023-11-16] MEDS: Gabapentin 300 MG CAP PO ×2 (08:02→20:14)
[2023-11-16] MEDS: Pantoprazole 40 MG TABCR PO (08:03)
[2023-11-16] MEDS: Normal Saline Flush 10 ML SYR (08:03)
[2023-11-16] MEDS: Metoclopramide 10 MG/2 ML VIAL IVP ×3 (08:04→17:31)
[2023-11-16] MEDS: Insulin Aspart 300 UNITS/3 ML PEN SC ×3 (08:15→17:29)
[2023-11-16 09:34] LABS: Lab Add On Test DONE
--- NOTE | 2023-11-16 09:44 | W.PM.PROGNOT ---
Date of Service Date of service: 11/16/23 Time of Service: 09:44 Assessment and Plan Assessment and plan (1) Chest pain: Status: Acute Assessment and plan: Reporting chest pain while ambulating to BR , would like to go home and expressing frustration as per RN Resolving after BRP and belching Nitro 0.3 SL, EKG and troponin ordered (2) Gram-positive bacteremia: Status: Acute Assessment and plan: blood cultures positive for MRSA X2 draws; 3rd blood culture done today Will stop Zyvox. Start Daptomycin as per ID consult at [facility]; CK baseline drawn Dr Ward from [facility] ID: treat for persistent bacteremia with 4-6 weeks of antibiotics after first negative cultures Repeated blood cultures done today 11/16 echocardiogram completed and w/o evidence of vegetation, seeding is not rule out as bacteremia is persistent Probable source might be diabetic foot infection; urine is negative. (3) Cellulitis: Status: Acute Assessment and plan: diabetic foot infection with cellulitis: On admission HR > 100, RR >20, and YOLANDA, lactate >2 met criteria for severe sepsis Will continue Zyvox day 4, podiatry consult pending, will be available 11/19, wound care consult pending sunday11/16/23, dressing as per nursing until seen. Keep foot elevated. Repeat CRP on, 11/16/2023, was trending downward from over 25 to 17.21 xray: No evidence of osteomyelitis;s/p amputations of the 2nd and 3rd toes Wound consult completed, culture sent for wound on left dorsal foot. MRI for left lower extremities without to assess for osteomyelitis ordered, will be completed on Sunday (4) Severe sepsis due to methicillin resistant Staphylococcus aureus (MRSA) with acute organ dysfunction: Status: Acute Assessment and plan: As above on admission , improving (5) Atrial fibrillation with RVR: Status: Acute Assessment and plan: Rate is controlled continue continue metoprolol Continue Xeralto renal dosing (6) Acute kidney injury superimposed on chronic kidney disease: Status: Acute Assessment and plan: creatinine 4.6 on admission, today 3.1 Initially thought to be YOLANDA from pre-renal causes. Might be due to urinary retention and postrenal YOLANDA but might be chronic due to comorbidities despite normal-sized kidneys on renal ultrasound. Urology consult completed: As per Dr. Sanchez if renal function improved drastically with Vanegas catheter, it might have been postrenal YOLANDA and alpha-ralph might be appropriate Continue to avoid nephrotoxic drugs, renal dosing as needed. Oral hydration well-tolerated fluid restriction 1 L started for sodium 130, normal saline also at 80 cc an hour initiated continue to hold ARB and diuretic New adjusted dose of allopurinol ordered vanegas catheter placed for accurate I&O and urinary retention renal US: FINDINGS: Renal size in cm: Right: 12.3. Left: 13.7. Echogenicity: Normal. Hydronephrosis: No. Cyst or mass: No. Nephrolithiasis: No. Other findings: Mild diffuse cortical thinning. Bladder:Normal. Ureteral jets: Right: Not visualized on this examination. Left: Not visualized on this examination. Prevoid vol:879 cc Postvoid vol:The patient was unable to void. Prostate: Not visualized. Renal color flow: Symmetric and within normal limits. IMPRESSION: 1. Mild cortical thinning but no evidence of hydronephrosis or renal mass is seen sonographically. 2. The patient was unable to void during the examination. The urinary bladder is grossly unremarkable. (7) Diabetes mellitus type 2: Status: Acute Assessment and plan: metformin on hold Hemoglobin A1c: 6.6 on 11/13/2023 Continue sliding scale insulin coverage and gluc AC and HS Continue daily bolus on insulin continue to monitor and adjust as needed. (8) Morbid obesity: Status: Acute Assessment and plan: nutrition consult completed Counseled for ongoing discussed of weight loss with pcp as outpatient (9) Discharge planning issues: Status: Acute Assessment and plan: DVT prophylaxis- anticoagulated on Xeralto for atrial fibrillation anticipate discharge to home with resumption of services, care management following for discharge needs. Awaiting for negative blood culture while on IV antibitics. Planing for 6 weeks of antibiotic after first negative blood culture discussed with DR Escudero Subjective Subjective Interval history since last seen: Patient reports feeling better, sleeping better, tolerating diet well, having a bowel movement . Patient denies pain, night sweats, fever or chills, nausea, vomiting ore diarrhea, dysuria. Patient reports having extra secretions in his airway, no coughing at the time of the exam. Exam Narrative Exam Narrative: Constitutional The patient is sitting in chair comfortable and cooperative during the interview. The patient is without acute distress and has obese body HENMT: Head is atraumatic and normocephalic. Facial structures with normal appearance Neck: no meningeal signs Neuro:alert and oriented to self, person, place, time and situation. No neurological focal deficit Chest:Chest is symmetrical and normal appearance Resp: Normal respiratory pattern, speaks in full sentences, clear lungs Cardio: S1, S2, no murmur., Positive pulses to all 4 extremities GI: Abdomen is large ,not distended, soft and non tender, bowel sounds are present : No bladder distension; vanegas with red sediments, no theo hematuria Back/spine/Pelvis: No spine tenderness, normal alignment, soft tissue pressure/ pain around coccyx area Integumentary: oozing lesion to LLE, Extremities: strength 5/5 to bilateral lower and upper extremities,feet are swollen Psych: RASS 0, congruent mood and normal affect. Objective Last Vital Signs Temp 36.9 C 11/16/23 07:10 Pulse 77 11/16/23 07:10 Resp 18 11/16/23 07:10 BP 135/76 11/16/23 07:10 Pulse Ox 93 11/16/23 07:10 Laboratory Results - last 24 hr 11/15/23 11/16/23 11/16/23 13:33 06:20 Unknown WBC 6.34 6.68 RBC 3.23 L 3.21 L Hgb 9.9 L 9.7 L Hct 30.3 L 29.7 L MCV 94 93 MCH 30.7 30.2 MCHC 32.7 32.7 RDW 15.6 H 15.7 H Plt Count 138 159 MPV 9.4 10.2 Reticulocyte % (Auto) 2.0 Immature Gran % 1.3 1.6 Neutrophils % 76.2 76.3 Lymphocytes % 7.4 9.7 Monocytes % 11.5 9.3 Eosinophils % 3.0 2.7 Basophils % 0.6 0.4 Nucleated RBC % 0.0 0.0 Absolute Neutrophils 4.83 5.09 Absolute Lymphocytes 0.47 L 0.65 L Absolute Monocytes 0.73 0.62 Absolute Eosinophils 0.19 0.18 Absolute Basophils 0.04 0.03 Sodium 128 L 130 L Potassium 4.0 3.7 Chloride 93 L 96 L Carbon Dioxide 24.4 25.7 Anion Gap 10.6 8.3 BUN 98 H* 92 H* Creatinine 3.4 H 3.1 H Est GFR (CKD-EPI 2020) 18.88 21.09 Glucose 324 H 261 H Calcium 9.0 8.9 Magnesium 2.2 Add-On Test Request DONE Time Spent with Patient Time Spent with Patient: >50 minutes Time was spent: preparing to see the patient(eg.review tests), ordering medications,tests, procedures, referring, communicating with other health resident care manager, indepentently interpreting results, counseling the patient and care coordination
--- NOTE | 2023-11-16 09:56 | PT.INNT ---
Date of service: 11/16/23 Time of Service: 09:44 PT Notes Visit Reasons: Cellulitis 9:44-9:55 patient refused due to sharp shooting pain, indicates area just superior to left mastoid process of the temporal bone. Area observed to be larger than opposite side and firm, not edematous. Charge nurse aware, states that she will report to hospitalist.
[2023-11-16 10:01] LABS: Creatine Kinase 190 U/L (39-308)
[2023-11-16 10:08] LABS: Iron 49 ug/dL (65-175); Total Iron Binding Capacity 173 ug/dL (250-450); Transferrin Sat 28 % (20-55)
[2023-11-16 10:13] LABS: Lab Add On Test DONE
--- NOTE | 2023-11-16 10:28 | CMPROGNOTE_ITS ---
Date of service: 11/16/23 Time of Service: 10:29 Care Management Progress Note Progress Note Text Progress Note Text: S/O:Ivan was sitting up in a chair visiting with his when CM met with him. He informed CM that he does not feel well today. He stated that his back hurts and he has been passing clots in his urine and that they are painful. CM did note that his urine appeared bloody however, per his nurse, it cleared completely later in the day. Ivan also complained of a lump on his head. The provider examined it and found it not to be of concern. Ivan had a wound consult today and in addition to wound care recommendations, an MRI was suggested. This was ordered and will be done on Sunday. CM again addressed discharge plans with Ivan and Mihaela. Mihaela feels Ivan should go to rehab for a bit until he is stronger and more at his baseline. Ivan is not necessarily in favor of that plan. CM provided them with a list of [place] detention facilities and they will identify the ones they wish to have referrals sent to, in case that is a path they choose. A: Ivan is a 68 year old man admitted on 11/12/23 with cellulitis P:Anticipate that Mario will be discharged home, possibly with new home health services, when medically cleared. He is agreeable to services if needed. He will follow up with his PCP and plan of care and transport with family. CM will follow and continue to assess for discharge needs. SDOH(Care Management) Screening Will the Patient Participate in the Screening?: Yes Do you worry about having a steady place to live?: no In the past 12 months, have you had to go without electric, gas, oil or water in your home?: yes Have you or anyone in your house had to go without enough food to eat?: no Has lack of transportation kept you from medical appointments or from doing things needed for daily living?: no Has anyone in your support network made you feel unsafe for any reason?: no Health Related Social Needs Health related social needs: material hardship(utilities)(Z59.87)
[2023-11-16] MEDS: Acetaminophen 325 MG TAB 650 MG PO (10:30)
[2023-11-16 10:35] LABS: Ferritin 478 ng/mL (26-388); Vitamin B12 468 pg/mL (193-986)
[2023-11-16 10:45] LABS: LDH 228 U/L (85-227)
[2023-11-16 11:37] LABS: Abs Immature Grans 0.11 10^3/uL (0.0-0.06); Absolute Basophil Count 0.04 10^3/uL (0.0-0.2); Absolute Eosinophil Count 0.21 10^3/uL (0.0-0.7); Absolute Lymphocyte Count 0.54 10^3/uL (1.2-3.4); Absolute Monocyte Count 0.57 10^3/uL (0.1-0.8); Absolute Neutrophil Count 6.37 10^3/uL (1.2-6.7); Basophils % 0.5; Eosinophils % 2.7; HGB 9.9 g/dL (13.5-17.5); Immature Grans % 1.4; Lymphocytes % 6.9; MCH 30.7 pg (27.0-33.0); MCV 93 fL (80-95); MPV 9.7 fL (8.0-11.0); Monocytes % 7.3; Neutrophils % 81.2; Platelet Count 161 10^3/uL (130-400); RBC 3.23 10^6/uL (4.36-5.78); RDW 15.9 % (11.8-14.1); RDW-SD 53.8 fL; WBC 7.84 10^3/uL (4.4-10.8)
[2023-11-16] MEDS: Normal Saline Flush 10 ML SYR IVP ×2 (11:43→17:30)
[2023-11-16 11:47] LABS: Anion Gap 9.1 mmol/L (3-11); CO2 24.9 mmol/L (21.0-32.0); CREATININE 2.9 mg/dL (0.70-1.30); Calcium 9.1 mg/dL (8.5-10.1); Chloride 96 mmol/L (98-107); Estimated GFR 22.85 (mL/min/1.73m2); Glucose 326 mg/dL (74-106); Potassium 3.9 mmol/L (3.5-5.1); Sodium 130 mmol/L (136-145)
[2023-11-16 11:49] LABS: BUN 87 mg/dL (7-18)
--- NOTE | 2023-11-16 14:05 | W.ORTHOCONSU ---
History of Present Illness Narrative: Mario is a 68-year-old morbidly obese diabetic chronic venous stasis changes who has been dealing with some ulcers about the plantar aspect of the forefoot. Over the past 2 weeks he had increasing redness and warmth of the left foot with an ulcer which developed, by report a few weeks ago. He also felt relatively unwell and was present to the emergency department. Was diagnosed with sepsis with a wound about the dorsum of the left foot. He is growing MRSA from his blood cultures which continue to be positive. His overall labs continue to improve. I was called in consultation about the manage of the wound. He also had a wound care consult. Wound care was being performed by his partner at home. He is relatively insensate about the left foot. He has been working on his diabetes and does report has been in better shape of late. He has a history of venous stasis and fluid overload but does not wear any compression at home. Consult Reason Left foot wound Assessment and Plan Assessment and plan (1) Diabetic ulcer of foot associated with diabetes mellitus due to underlying condition, with bone involvement without evidence of necrosis: Status: Acute Assessment and plan: Mario is a 68-year-old male with he is who has a foot wound to the dorsum of the left foot which is complicated by overall bacteremia. And seems to be improving. Clinically feels better. Wound care has been consulted. Please see their note for complete detail assessment of the wound and the recommendation. I evaluated him today. I think is important that we are able to assess his vascular status with YOHANA and TBI and potentially a CT angio. However, he is unable to tolerate any dye given his current kidney status. MRI would be helpful as well to assess for any abscess but unable to express any purulent material which was expressible previously per the report of his partner. These wounds of the dorsum of the foot can be challenging. I have limited experience with managing these. However, I do think diligent wound care will help once the infection is cleared. MRI can be utilized to make sure there is no underlying abscess. However, I would be cautious on any aggressive debridement as this wound will take some time to heal. There is also underlying tendon and just deep to that bone which needs to have a protective layer covering it to allow the skin to adequately grow over this. I do not have much experience in the management of these complex wounds and would defer to Dr. Chua or wound care team. A multidisciplinary wound care approach may be necessary although the patient seems content on going home and managing this with him and his partner. If this were to get acutely worse or there are bone changes or does not heal amputation may be considered but I think is worth being very aggressive with wound care. Surgical debridement at the bedside may be beneficial but I will default to Dr. Chua and her opinion. Review of Systems All systems reviewed & are unremarkable except as noted in HPI and below PFSH All Active Problems (Updated 11/17/23 @ 10:58 by Darian Keane MD) Diabetic ulcer of foot associated with diabetes mellitus due to underlying condition, with bone involvement without evidence of necrosis (Acute) Chest pain (Acute) Urinary retention with incomplete bladder emptying (Acute) Elevated serum creatinine (Acute) Severe sepsis due to methicillin resistant Staphylococcus aureus (MRSA) with acute organ dysfunction (Acute) Discharge planning issues (Acute) Gram-positive bacteremia (Acute) Cellulitis (Acute) Atrial fibrillation with RVR (Acute) Acute kidney injury superimposed on chronic kidney disease (Acute) CHF (congestive heart failure) (Chronic) History of: (Active) Right frozen shoulder, resolved. Right elbow tendinitis, now resolved. S/P hydrocele repair. 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 History of metatarsal fracture. Metabolic syndrome X (Active) Dyslipidemia (Active) Triglycerides greater than 600 and HDL in the 20s, consistent with metabolic syndrome. Atrial fibrillation (Active) Tinea cruris (Active) Venous stasis syndrome (Active) Morbid obesity (Acute) [place] of 46. Gastroesophageal reflux disease (Active) Diabetes mellitus type 2 (Acute) Uncontrolled, usually on high dose insulin; known retinopathy and mild nephropathy. Benign hypertension (Active) Umbilical hernia (Active) Cellulitis and abscess of leg (Acute) Recurrent. Social History Smoking/Tobacco Use Status: Former Tobacco Use Smoking risk assessment performed?: Yes Alcohol Intake: never Drug use: Never Substance use type: does not use Housing: house Do you feel safe at home: Yes Do you feel safe in your relationship?: Yes Exam Narrative Exam Narrative: Sitting in the chair. Both legs in a dependent position. Evaluation of the left leg shows chronic venous stasis changes with brawny purple discoloration of the left leg. There is some mild erythema potentially but foot but no expressible fluid collections. There is 1 primary dorsal foot wound nearly 4 cm diameter. There is seem to be some pink granulation tissue around the edges. There is thickened slough in the middle with recent application of Santyl by nursing. I am unable to express any purulent material from this wound. Manipulation of the foot and the toes does not show any exposed tendon at this level. I did not perform any debridement at the bedside or exploration as the recent Santyl was applied. There is also a roofed lesion seen over the lateral border of the midfoot, likely overlying the prominence of the fifth metatarsal tuberosity. Additionally, chronic wounds are seen over the plantar aspect of the forefoot with previous amputations. Unable to palpate pulses, complicated by habitus and skin changes. Results Last Vital Signs Temp 36.5 C 11/17/23 07:45 Pulse 80 11/17/23 07:45 Resp 17 11/17/23 07:45 BP 125/89 11/17/23 07:45 Pulse Ox 94 11/17/23 07:45 Labs 11/17/23 06:35 11/17/23 06:35 Labs: Laboratory Results - last 24 hr 11/16/23 11/16/23 11/17/23 11:12 19:00 06:35 WBC 7.84 6.95 RBC 3.23 L 3.17 L Hgb 9.9 L 9.6 L Hct 30.0 L 29.7 L MCV 93 94 MCH 30.7 30.3 MCHC 33.0 32.3 RDW 15.9 H 15.9 H Plt Count 161 148 MPV 9.7 10.1 Immature Gran % 1.4 1.6 Neutrophils % 81.2 78.7 Lymphocytes % 6.9 8.8 Monocytes % 7.3 7.3 Eosinophils % 2.7 3.2 Basophils % 0.5 0.4 Nucleated RBC % 0.0 0.0 Absolute Neutrophils 6.37 5.47 Absolute Lymphocytes 0.54 L 0.61 L Absolute Monocytes 0.57 0.51 Absolute Eosinophils 0.21 0.22 Absolute Basophils 0.04 0.03 Sodium 130 L 136 Potassium 3.9 3.9 Chloride 96 L 101 Carbon Dioxide 24.9 23.5 Anion Gap 9.1 11.5 H BUN 87 H* 77 H Creatinine 2.9 H 2.5 H Est GFR (CKD-EPI 2020) 22.85 27.30 Glucose 326 H 326 H Calcium 9.1 9.4 Magnesium 2.3 Creatine Kinase 137 Troponin I < 50 Imaging Imaging Studies: X-ray of the previously performed. No signs of osteomyelitis. No bone erosions.
[2023-11-16] MEDS: Collagenase 30 GM TUBE TP (15:00)
[2023-11-16 15:04] VITALS: BP 146/79; PULSE 76; RESP 18; TEMP 36.9; O2SAT 92
[2023-11-16] MEDS: Normal Saline 1,000 ML 80 ML IV (15:10)
--- NOTE | 2023-11-16 16:00 | PT.INNT ---
Date of service: 11/16/23 Time of Service: 14:00 PT Notes Visit Reasons: Cellulitis Patient refused therapy at 1400 and 1558 due to feeling as though he has been taken apart and put back together today. Tired, in pain, bad mood. Agreeable to therapy tomorrow. LINDA Conley and DOMINICK ambrosio.
--- NOTE | 2023-11-16 17:05 | WOUNDCONS ---
Date of service: 11/16/23 Time of Service: 15:00 Wound Initial Evaluation Narrative Narrative: Pt is a 68 year old male admitted for cellulitis of the left lower extremity. He has been seen at the [facility] for a diabetic foot ulcer to the left foot recently. He states that he has not had an MRI or vascular studies done recently to the foot but does have a history of having toes amputated from the left foot in the past due to osteomyelitis. The current wounds are concerning for recurrent osteo. He has been found to have MRSA bacteremia on this admission. The pt is a diabetic with a history of Atrial Fib, CHF, Acute kidney disease and morbid obesity. The pt is on Xarelto. Recent CRP is improved at 17.21, WBC normal at 7.84, procalcitonin of 0.6. He has been on Daptomycin and Zyvox. Body Four View: 1. Lateral left foot 2. Plantar left great toe 3. Dorsal left foot Wound Left Volar Great toe: Wound Type: Diabetic Ulcer Pressure Ulcer Stage: Eschar/Unstageable Wound General Appearance: Blackened and Other (calloused) Wound Bed Greatest Portion: Black (Eschar) Wound Bed Lesser Portion: Other (calloused) Wound Surrounding Tissue Appearance: Other (calloused) Percent of Wound Bed Granulated/Red: 0 Percent of Wound Bed Slough/Yellow: 0 Percent of Wound Bed Eschar/Black: 100 Wound Length: 0.39 in Wound Width: 0.98 in Wound Drainage Amount: None Wound Drainage Odor: None/Absent Wound Drainage Description: No drainage Wound Topical Solution/Irrigant: Other (Anasept) Wound Debridement Method: Other (Debrisoft sponge) Wound Debridement Result: Necrotic Remains Wound Debridement Amount of Tissue Removed: Minimal Additional Other Comments: Not open, unstageable Left Lateral Foot: Wound Type: Diabetic Ulcer and Deep Tissue Injury (DTI) Pressure Ulcer Stage: Eschar/Unstageable Wound General Appearance: Blackened Wound Bed Greatest Portion: Black (Eschar) Wound Surrounding Tissue Appearance: Aneth Percent of Wound Bed Eschar/Black: 100 Wound Length: 0.47 in Wound Width: 0.79 in Wound Drainage Amount: None Wound Drainage Odor: None/Absent Wound Topical Solution/Irrigant: Other (Anasept) Wound Debridement Method: Other (Debrisoft sponge) Wound Debridement Result: Necrotic Remains Wound Debridement Amount of Tissue Removed: Minimal Left Dorsal Foot: Wound Type: Diabetic Ulcer Pressure Ulcer Stage: Eschar/Unstageable Wound General Appearance: Reddened, Blackened, Draining and Necrotic Wound Bed Greatest Portion: Yellow (Slough) Wound Bed Lesser Portion: Black (Eschar) Wound Surrounding Tissue Appearance: Bright Red Percent of Wound Bed Granulated/Red: 2 Percent of Wound Bed Slough/Yellow: 73 Percent of Wound Bed Eschar/Black: 25 Wound Length: 1.3 in Wound Width: 1.77 in Wound Depth: 0.16 in Wound Drainage Amount: Minimal Wound Drainage Odor: None/Absent Wound Drainage Description: Brown Wound Topical Solution/Irrigant: Other (Anasept) Wound Debridement Method: Other (Debrisoft sponge) Wound Debridement Result: Necrotic Remains Wound Debridement Amount of Tissue Removed: Minimal Additional Other Comments: depth measured at small open area of wound, otherwise covered in slough and necrotic tissue Circulation, Sensation, Motion Edema Degree: 2+ Peripheral Pulse Strength: Absent Capillary Refill: Greater than 3 seconds Sensation Description: Numbness Skin Temperature: Warm Skin Color: Pale Additional Other Comments: doppler posterior tibial and dorsalis pedis YOHANA Comment:: YOHANA machine is out of service Pain Pain Level: 0 Pain Scale Used: Adult Additional Other Comments: numbness in lower extremity Wound Summary Wound Summary: Pt with circulatory compromise with history of chronic diabetic wounds and history of toe amputations due to osteomyelitis. Three areas of unstageable wounds due to adhered eschar. Does have MRSA bacteremia. Concern for osteomyelitis at this time is high. Wound culture of the dorsal wound taken as none currently on file. Pt is awaiting Podiatry consult which I believe is needed for this pt. Photo Photo: Treatment/Dressing Change Topicals/Ointments: Santyl Cleanse With: Anasept Dressing Types: Adaptic (Contact Layer), Gauze and Kerlix (Gauze Roll) Nutrition Education Note: Pt being seen by plastics engineering teacher Recomendation Recomendation:: Recommend an MRI and vascular studies of the left leg. Culture has been obtained. Left foot: 1. Clean the wounds on the left foot with Anasept spray and allow to dwell for 2 minutes. 2. Pat dry. 3. Apply nickel thickness of Santyl ointment to dorsal foot wound, lateral wound, and plantar great toe areas. 5. Cover with 4x4 gauze. 6. Apply adaptic to scratches of left anterior lower extremity and to small areas on left lateral leg. 7. Wrap the leg with kerlix starting at the toes and working up the leg. 8. Change dressing daily. 9. Apply blue foam booties while in bed and keep left leg elevated on pillows. Physcian/Nurse Practioner Notified: Yes (Dori Kennedy APRN) Treatment Time Time Total Time Spent with Patient: one hour
[2023-11-16] MEDS: Rivaroxaban 15 MG TABLET PO (17:30)
--- NOTE | 2023-11-16 18:30 | RT.EKG_ITS ---
APPROVED REPORT Exam: Resting ECG Reason for Exam: Mid sternal chest pain Patient Location: I HR:119 bpm ECG Measurements Heart Rate 119 AXIS MS 112 P 173 QRSd 173 QRS 124 QT 391 T -17 QTc 551 Conclusion Sinus or ectopic atrial tachycardia...P axis (-45,135), rate> 99 Multiform ventricular premature complexes...short R-R, variable morphology RBBB and LPFB...QRSd >120mS, axis(90,210) ATRIAL FLUTTER WITH VARIED AV CONDUCTION I have reviewed and interpreted ECG and agree with software generated interpretation.
[2023-11-16 18:31] VITALS: BP 130/76; PULSE 117; RESP 21; O2SAT 95
[2023-11-16 19:31] LABS: Troponin I < 50 ng/L (< or =60)
[2023-11-16] MEDS: Melatonin 3 MG TAB PO (20:13)
[2023-11-16] MEDS: Atorvastatin 40 MG TAB PO (20:14)
[2023-11-16] MEDS: Insulin Glargine 300 UNITS/3 ML PEN 66 UNITS SC (20:14)
[2023-11-16 20:22] VITALS: BP 163/83; PULSE 118; RESP 20; TEMP 37.3; O2SAT 95
[2023-11-16 21:00] VITALS: RESP 18
[2023-11-17] MEDS: Normal Saline 1,000 ML 80 ML IV (03:40)
[2023-11-17 03:49] VITALS: RESP 18
[2023-11-17 06:49] LABS: Abs Immature Grans 0.11 10^3/uL (0.0-0.06); Absolute Basophil Count 0.03 10^3/uL (0.0-0.2); Absolute Eosinophil Count 0.22 10^3/uL (0.0-0.7); Absolute Lymphocyte Count 0.61 10^3/uL (1.2-3.4); Absolute Monocyte Count 0.51 10^3/uL (0.1-0.8); Absolute Neutrophil Count 5.47 10^3/uL (1.2-6.7); Basophils % 0.4; Eosinophils % 3.2; HCT 29.7 % (40.0-50.0); HGB 9.6 g/dL (13.5-17.5); Immature Grans % 1.6; Lymphocytes % 8.8; MCH 30.3 pg (27.0-33.0); MCHC 32.3 % (32.0-36.0); MCV 94 fL (80-95); MPV 10.1 fL (8.0-11.0); Monocytes % 7.3; Neutrophils % 78.7; Platelet Count 148 10^3/uL (130-400); RBC 3.17 10^6/uL (4.36-5.78); RDW 15.9 % (11.8-14.1); RDW-SD 54.4 fL; WBC 6.95 10^3/uL (4.4-10.8)
[2023-11-17 07:14] LABS: Anion Gap 11.5 mmol/L (3-11); BUN 77 mg/dL (7-18); CO2 23.5 mmol/L (21.0-32.0); CREATININE 2.5 mg/dL (0.70-1.30); Calcium 9.4 mg/dL (8.5-10.1); Chloride 101 mmol/L (98-107); Creatine Kinase 137 U/L (39-308); Glucose 326 mg/dL (74-106); Magnesium 2.3 mg/dL (1.8-2.4); Potassium 3.9 mmol/L (3.5-5.1); Sodium 136 mmol/L (136-145)
[2023-11-17 07:45] VITALS: BP 125/89; PULSE 80; RESP 17; TEMP 36.5; O2SAT 94
[2023-11-17] MEDS: Isosorbide Mononitrate 60 MG TABCR 240 MG PO (08:28)
[2023-11-17] MEDS: Gabapentin 300 MG CAP PO ×2 (08:29→21:06)
[2023-11-17] MEDS: Metoprolol 50 MG TAB 100 MG PO ×2 (08:30→21:07)
[2023-11-17] MEDS: Metoprolol 25 MG TAB PO ×2 (08:30→21:07)
[2023-11-17] MEDS: Pantoprazole 40 MG TABCR PO (08:31)
[2023-11-17] MEDS: Clopidogrel 75 MG TAB PO (08:31)
[2023-11-17] MEDS: Allopurinol 100 MG TAB PO (08:31)
[2023-11-17] MEDS: Insulin Aspart 300 UNITS/3 ML PEN SC ×3 (08:32→16:51)
[2023-11-17] MEDS: Collagenase 30 GM TUBE TP (08:33)
[2023-11-17] MEDS: Polyethylene Glycol 3350 17 GM PACKET PO (08:34)
[2023-11-17] MEDS: Metoclopramide 10 MG/2 ML VIAL IVP ×3 (08:54→16:49)
--- NOTE | 2023-11-17 11:09 | PT.INNT ---
PT Notes Visit Reasons: Cellulitis pt refused multiple attempts from this therapist to get pt to participate with therapy, pt reports he is too bloated to participate, did not want to stand up, not interested in doing seated exercise, pt reports he is not getting enough sleep due to his bloating resulting in generalized body malaise, nurse aware of pt condition and is addressing bloating issue with meds.
[2023-11-17 11:12] VITALS: BP 129/60; PULSE 79; RESP 17; TEMP 36; O2SAT 92
--- NOTE | 2023-11-17 11:17 | PGE_ITS ---
Date of Service Date of service: 11/17/23 Time of Service: 11:17 Assessment and Plan Assessment and plan (1) Chest pain: Status: Acute Assessment and plan: Has resolved and the patient reporting this has been multifactorial as he was upset at the time of this event yesterday 11/16. Reporting chest pain while ambulating to BR , would like to go home and expressing frustration as per RN Resolving after BRP and belching at the time Nitro 0.3 SL X1 oredered, EKG was negative for ischemia or necrosis and troponin ordered and negative No further c/o chest pain overnight and this AM Will discontinue telemetry (2) Gram-positive bacteremia: Status: Acute Assessment and plan: blood cultures positive for MRSA X2 draws; 3rd blood culture on 11/16 shows no growth at 24 hours Continue Daptomycin as per ID consult at [facility]; CK baseline drawn Dr Ward from [facility] ID recommanded treating for persistent bacteremia with 4-6 weeks of antibiotics after first negative cultures Date of first negative is 11/16 echocardiogram completed and w/o evidence of vegetation, seeding was not rule out as bacteremia is persistent Probable source might be diabetic foot infection; urine is negative. (3) Cellulitis: Status: Acute Assessment and plan: diabetic foot infection with cellulitis: On admission HR > 100, RR >20, and YOLANDA, lactate >2 met criteria for severe sepsis Will continue Zyvox day 4, podiatry consult pending, will be available 11/19, wound care consult pending sunday11/16/23, dressing as per nursing until seen. Keep foot elevated. Repeat CRP on, 11/16/2023, was trending downward from over 25 to 17.21 xray: No evidence of osteomyelitis;s/p amputations of the 2nd and 3rd toes Wound consult completed, culture sent for wound on left dorsal foot, showing [facility] MRI for left lower extremities without to assess for osteomyelitis ordered, will be completed on Sunday YOHANA ordered, no TBI available Surgical consult completed , please see Dr. Keane's note Podiatry consult pending d/t occur on 11/19 (4) Severe sepsis due to methicillin resistant Staphylococcus aureus (MRSA) with acute organ dysfunction: Status: Acute Assessment and plan: As above on admission , improving Cr 4.6 now 2.5 (5) Atrial fibrillation with RVR: Status: Acute Assessment and plan: tele A-Fib HR 78 continue continue metoprolol Continue Xeralto renal dosing (6) Acute kidney injury superimposed on chronic kidney disease: Status: Acute Assessment and plan: creatinine 4.6 on admission, today 2.5 Initially thought to be YOLANDA from pre-renal causes. Might be due to urinary retention and postrenal YOLANDA but might be chronic due to comorbidities despite normal-sized kidneys on renal ultrasound. Urology consult completed: As per Dr. Sanchez if renal function improved drastically with Vanegas catheter, it might have been postrenal YOLANDA and alpha- ralph might be appropriate. Considaration to be given to Tamsulosin at least 48 hours prior to discontinuation of vanegas catheter Continue to avoid nephrotoxic drugs, renal dosing as needed. Considering resuming ARB and diuretic w Cr at 2. ARB and diuretic on hold at this time Oral hydration well-tolerated fluid restriction 1 L started for sodium 130, normal saline also at 80 cc an hour initiated Na 136 today, will discontinue NS Continue adjusted dose of allopurinol ordered vanegas catheter placed for accurate I&O and urinary retention renal US: FINDINGS: Renal size in cm: Right: 12.3. Left: 13.7. Echogenicity: Normal. Hydronephrosis: No. Cyst or mass: No. Nephrolithiasis: No. Other findings: Mild diffuse cortical thinning. Bladder:Normal. Ureteral jets: Right: Not visualized on this examination. Left: Not visualized on this examination. Prevoid vol:879 cc Postvoid vol:The patient was unable to void. Prostate: Not visualized. Renal color flow: Symmetric and within normal limits. IMPRESSION: 1. Mild cortical thinning but no evidence of hydronephrosis or renal mass is seen sonographically. 2. The patient was unable to void during the examination. The urinary bladder is grossly unremarkable. (7) Diabetes mellitus type 2: Status: Acute Assessment and plan: metformin on hold Hemoglobin A1c: 6.6 on 11/13/2023 Capillary blood sugar readings:285 to 351 sliding scale insulin coverage change to resistant, continue and gluc AC and HS and daily basal insulin bolus continue to monitor and adjust as needed. (8) Morbid obesity: Status: Acute Assessment and plan: nutrition consult completed On diabetic diet Counseled for ongoing discussed of weight loss with primary care provider when discharged (9) Discharge planning issues: Status: Acute Assessment and plan: DVT prophylaxis- anticoagulated on Xeralto for atrial fibrillation anticipate discharge to home with resumption of HH services VS short term rehabilitation; care management following for discharge needs. Awaiting for negative blood culture while on IV antibiotics. Planning for 6 weeks of antibiotic after first negative blood culture discussed with DR Escudero Subjective Subjective Patient reports: no new complaints, feels better, tolerating liquids well, tolerating a regular diet, voiding w/o difficulty, flatus and bowel movement; denies diarrhea, nausea, vomiting, shortness of breath or fever Exam Narrative Exam Narrative: Constitutional The patient is sitting in chair comfortable and cooperative during the interview. The patient is without acute distress and has obese body HENMT: Facial structures with normal appearance Neck: no meningeal signs Neuro:alert and oriented to self, person, place, time and situation. No neurological focal deficit Chest:Chest is symmetrical and normal appearance Resp: Normal respiratory pattern, speaks in full sentences, clear lungs Cardio: tele A-fib HR 78, S1, S2, no murmur. Positive & weak pulse to left proximal dorsal artery GI: Abdomen is large ,not distended, soft and non tender, bowel sounds are present : No bladder distension; vanegas w/o theo hematuria Back/spine/Pelvis: No spine tenderness, normal alignment, soft tissue pressure/ pain around coccyx area Integumentary: oozing lesions to LLE improving, limb remains discolored, improved swelling Extremities: strength 5/5 to bilateral lower and upper extremities,feet are swollen Psych: RASS 0, congruent mood and normal to depress affect. Objective Last Vital Signs Temp 36.0 C L 11/17/23 11:12 Pulse 79 11/17/23 11:12 Resp 17 11/17/23 11:12 BP 129/60 11/17/23 11:12 Pulse Ox 92 11/17/23 11:12 Laboratory Results - last 24 hr 11/16/23 11/16/23 11/17/23 11:12 19:00 06:35 WBC 7.84 6.95 RBC 3.23 L 3.17 L Hgb 9.9 L 9.6 L Hct 30.0 L 29.7 L MCV 93 94 MCH 30.7 30.3 MCHC 33.0 32.3 RDW 15.9 H 15.9 H Plt Count 161 148 MPV 9.7 10.1 Immature Gran % 1.4 1.6 Neutrophils % 81.2 78.7 Lymphocytes % 6.9 8.8 Monocytes % 7.3 7.3 Eosinophils % 2.7 3.2 Basophils % 0.5 0.4 Nucleated RBC % 0.0 0.0 Absolute Neutrophils 6.37 5.47 Absolute Lymphocytes 0.54 L 0.61 L Absolute Monocytes 0.57 0.51 Absolute Eosinophils 0.21 0.22 Absolute Basophils 0.04 0.03 Sodium 130 L 136 Potassium 3.9 3.9 Chloride 96 L 101 Carbon Dioxide 24.9 23.5 Anion Gap 9.1 11.5 H BUN 87 H* 77 H Creatinine 2.9 H 2.5 H Est GFR (CKD-EPI 2020) 22.85 27.30 Glucose 326 H 326 H Calcium 9.1 9.4 Magnesium 2.3 Creatine Kinase 137 Troponin I < 50 Time Spent with Patient Time Spent with Patient: >50 minutes Time was spent: preparing to see the patient(eg.review tests), obtaining and/or reviewing separately otained hiistory, ordering medications,tests, procedures, referring, communicating with other health healthcare network consultant, indepentently interpreting results, counseling the patient and care coordination
[2023-11-17 16:04] VITALS: BP 149/75; PULSE 81; RESP 17; TEMP 36.6; O2SAT 94
[2023-11-17] MEDS: Rivaroxaban 15 MG TABLET PO (16:51)
[2023-11-17] MEDS: Atorvastatin 40 MG TAB PO (21:06)
[2023-11-17] MEDS: Insulin Glargine 300 UNITS/3 ML PEN 66 UNITS SC (21:06)
[2023-11-17] MEDS: Melatonin 3 MG TAB PO (21:07)
[2023-11-18] VITALS: BP 175/90; PULSE 96; RESP 17; TEMP 35.5; O2SAT 93
[2023-11-18 06:33] LABS: Abs Immature Grans 0.18 10^3/uL (0.0-0.06); Absolute Basophil Count 0.07 10^3/uL (0.0-0.2); Absolute Eosinophil Count 0.33 10^3/uL (0.0-0.7); Absolute Lymphocyte Count 0.63 10^3/uL (1.2-3.4); Absolute Monocyte Count 0.64 10^3/uL (0.1-0.8); Absolute Neutrophil Count 7.45 10^3/uL (1.2-6.7); Basophils % 0.8; Eosinophils % 3.5; HGB 9.9 g/dL (13.5-17.5); Immature Grans % 1.9; Lymphocytes % 6.8; MCH 30.5 pg (27.0-33.0); MCHC 31.9 % (32.0-36.0); MCV 95 fL (80-95); MPV 9.6 fL (8.0-11.0); Monocytes % 6.9; Neutrophils % 80.1; Nucleated RBC 0.2 % (0.0-0.3); Platelet Count 141 10^3/uL (130-400); RBC 3.25 10^6/uL (4.36-5.78)
[2023-11-18 06:45] LABS: Anion Gap 10.1 mmol/L (3-11); BUN 55 mg/dL (7-18); CO2 24.9 mmol/L (21.0-32.0); CREATININE 1.9 mg/dL (0.70-1.30); Calcium 9.3 mg/dL (8.5-10.1); Chloride 102 mmol/L (98-107); Estimated GFR 37.95 (mL/min/1.73m2); Glucose 256 mg/dL (74-106); Potassium 3.9 mmol/L (3.5-5.1); Sodium 137 mmol/L (136-145)
[2023-11-18 06:49] LABS: ESR 95 mm/hr (0-20)
[2023-11-18] MEDS: Metoclopramide 10 MG/2 ML VIAL IVP ×3 (07:17→16:35)
[2023-11-18] MEDS: Normal Saline Flush 10 ML SYR IVP ×3 (07:17→16:35)
[2023-11-18 07:54] VITALS: BP 156/80; PULSE 82; RESP 18; TEMP 36.3; O2SAT 97
[2023-11-18] MEDS: Pantoprazole 40 MG TABCR PO (08:00)
[2023-11-18] MEDS: Isosorbide Mononitrate 60 MG TABCR 240 MG PO (08:00)
[2023-11-18] MEDS: Gabapentin 300 MG CAP PO ×2 (08:00→20:15)
[2023-11-18] MEDS: Metoprolol 50 MG TAB 100 MG PO ×2 (08:01→20:15)
[2023-11-18] MEDS: Clopidogrel 75 MG TAB PO (08:01)
[2023-11-18] MEDS: amLODIPine 10 MG TAB PO (08:01)
[2023-11-18] MEDS: Metoprolol 25 MG TAB PO ×2 (08:02→20:15)
[2023-11-18] MEDS: Insulin Aspart 300 UNITS/3 ML PEN SC ×3 (08:02→16:55)
[2023-11-18] MEDS: Polyethylene Glycol 3350 17 GM PACKET PO (08:04)
[2023-11-18] MEDS: Collagenase 30 GM TUBE TP (08:05)
--- NOTE | 2023-11-18 10:52 | W.PM.PROGNOT ---
Date of Service Date of service: 11/18/23 Time of Service: 10:52 Assessment and Plan Assessment and plan (1) Chest pain: Status: Acute Assessment and plan: Has resolved and the patient reporting this has been multifactorial as he was upset at the time of this event yesterday 11/16. Reporting chest pain while ambulating to BR , would like to go home and expressing frustration as per RN Resolving after BRP and belching at the time Nitro 0.3 SL X1 oredered, EKG was negative for ischemia or necrosis and troponin ordered and negative No further c/o chest pain overnight and this AM Will discontinue telemetry (2) Gram-positive bacteremia: Status: Acute Assessment and plan: blood cultures positive for MRSA X2 draws; 3rd blood culture on 11/16 shows no growth at 24 hours Daptomycin stopped d/t new elevated rash to both distal hand and resuming IV zyvox in AM with the goal to transition to oral for discharge. Platelets 141 CK baseline drawnprior to Dapto and no increased Dr Ward from [facility] ID recommanded treating for persistent bacteremia with 4-6 weeks of antibiotics after first negative cultures Date of first negative was 11/16 echocardiogram completed and w/o evidence of vegetation, seeding could not be ruled out as bacteremia was persistent Probable source might be diabetic foot infection; urine was negative. (3) Cellulitis: Status: Acute Assessment and plan: diabetic foot infection with cellulitis: On admission HR > 100, RR >20, and YOLANDA, lactate >2 met criteria for severe sepsis Will continue On prolonged course of Zyvox as described above podiatry consult pending, will be available 11/19, wound care consult completed see notes Ortho consult completed: See notes Keep foot elevated. Repeat CRP on, 11/16/2023, was trending downward from over 25 to 11.2 now xray: No evidence of osteomyelitis;s/p amputations of the 2nd and 3rd toes Wound consult completed, culture sent for wound on left dorsal foot on 11/16, showing MRSA this PM MRI for left lower extremities without to assess for osteomyelitis ordered, will be completed on Sunday YOHANA ordered, no TBI available Surgical consult completed , please see Dr. Keane's note Podiatry consult pending d/t occur on 11/19 (4) Severe sepsis due to methicillin resistant Staphylococcus aureus (MRSA) with acute organ dysfunction: Status: Acute Assessment and plan: As above on admission , improving Cr 4.6 now 1.9 (5) Atrial fibrillation with RVR: Status: Acute Assessment and plan: Rate is controlled continue continue metoprolol Continue Xeralto renal dosing (6) Acute kidney injury superimposed on chronic kidney disease: Status: Acute Assessment and plan: creatinine 4.6 on admission, today 1.9 Resuming Bumex today Resuming ARB on 11/19 Initially thought to be YOLANDA from pre-renal causes. Might be due to urinary retention and postrenal YOLANDA but might be chronic due to comorbidities despite normal-sized kidneys on renal ultrasound. Urology consult completed: As per Dr. Sanchez if renal function improved drastically with Vanegas catheter, it might have been postrenal YOLANDA and alpha-ralph might be appropriate. vanegas catheter placed for accurate I&O and urinary retention Starting Tamsulosin today might d/c vanegas in t 48 hours Continue to avoid nephrotoxic drugs as much as possible, renal dosing as needed. Allopurinol still on renal dosing consulted with pharmacy, might be able to resume home dosing early this week Oral hydration well-tolerated fluid restriction 1 L started for sodium 130, normal saline also at 80 cc an hour initiated for 1 liter on 11/16 Na 137 today, no further fluid restriction renal US: FINDINGS: Renal size in cm: Right: 12.3. Left: 13.7. Echogenicity: Normal. Hydronephrosis: No. Cyst or mass: No. Nephrolithiasis: No. Other findings: Mild diffuse cortical thinning. Bladder:Normal. Ureteral jets: Right: Not visualized on this examination. Left: Not visualized on this examination. Prevoid vol:879 cc Postvoid vol:The patient was unable to void. Prostate: Not visualized. Renal color flow: Symmetric and within normal limits. IMPRESSION: 1. Mild cortical thinning but no evidence of hydronephrosis or renal mass is seen sonographically. 2. The patient was unable to void during the examination. The urinary bladder is grossly unremarkable. (7) Diabetes mellitus type 2: Status: Acute Assessment and plan: metformin on hold Hemoglobin A1c: 6.6 on 11/13/2023 Capillary blood sugar readings:274 to 321 On resistant sliding scale insulin coverage , continue and gluc AC and HS and considering increasing daily basal insulin bolus on 11/19 continue to monitor and adjust as needed. (8) Morbid obesity: Status: Acute Assessment and plan: nutrition consult completed On diabetic diet Was on semaglutide at home Counseled for ongoing discussed of weight loss with primary care provider when discharged (9) ERENDIRA (obstructive sleep apnea): Status: Chronic Assessment and plan: On home BIPAP (10) Acute insomnia: Status: Acute Assessment and plan: Melatonin initiated on 11/15 but persistent insomnia Lorazepam 0.5 mg oral at HS tonight; patient agreed to trial (11) Discharge planning issues: Status: Acute Assessment and plan: DVT prophylaxis- anticoagulated on Xeralto for atrial fibrillation, no DVT prophylaxis drug indicated anticipate discharge to home with resumption of HH services VS short term rehabilitation; care management following for discharge needs. Patient feels that he could mange at home but awaiting podiatry consult result to concur with patient Awaiting for negative blood culture while on IV antibiotics. Planning for 6 weeks of antibiotic after first negative blood culture discussed with DR Escudero Subjective Subjective Interval history since last seen: Patient reports eating well and drinking well,sleeping less than last night, feeling swollen since is diuretic were stopped for his YOLANDA, feeling tired. He is able to ambulate reports no pain to his lower extremities. Patient denies night sweats, chills,fever, shortness of breath or coughing, nausea, vomiting, or diarrhea, dysuria and hematuria. Exam Narrative Exam Narrative: Constitutional The patient is sitting in chair comfortable and cooperative during the interview. The patient is without acute distress and has obese body HENMT: Facial structures with normal appearance Neck: no meningeal signs Neuro:alert and oriented to self, person, place, time and situation. No neurological focal deficit Chest:Chest is symmetrical and normal appearance Resp: Normal respiratory pattern, speaks in full sentences, clear lungs Cardio: irregular, S1, S2, no murmur, swelling to hand and fingers today GI: Abdomen is large ,not distended, soft and non tender, bowel sounds are present : No bladder distension; vanegas w/o theo hematuria Back/spine/Pelvis: No spine tenderness, normal alignment, soft tissue pressure/ pain around coccyx area Integumentary: New rash localized to bilateral distal hands: red, slightly oozing lesions to LLE improving, limb remains discolored, improved swelling Extremities: strength 5/5 to bilateral lower and upper extremities,feet are swollen Psych: RASS 0, congruent mood and normal to depress affect. Objective Last Vital Signs Temp 36.3 C L 11/18/23 07:54 Pulse 82 11/18/23 07:54 Resp 18 11/18/23 07:54 BP 156/80 H 11/18/23 07:54 Pulse Ox 97 11/18/23 07:54 Laboratory Results - last 24 hr 11/18/23 06:25 WBC 9.30 RBC 3.25 L Hgb 9.9 L Hct 31.0 L MCV 95 MCH 30.5 MCHC 31.9 L RDW 16.0 H Plt Count 141 MPV 9.6 Immature Gran % 1.9 Neutrophils % 80.1 Lymphocytes % 6.8 Monocytes % 6.9 Eosinophils % 3.5 Basophils % 0.8 Nucleated RBC % 0.2 Absolute Neutrophils 7.45 H Absolute Lymphocytes 0.63 L Absolute Monocytes 0.64 Absolute Eosinophils 0.33 Absolute Basophils 0.07 ESR 95 H Sodium 137 Potassium 3.9 Chloride 102 Carbon Dioxide 24.9 Anion Gap 10.1 BUN 55 H Creatinine 1.9 H Est GFR (CKD-EPI 2020) 37.95 Glucose 256 H Calcium 9.3 C-Reactive Protein 11.20 H Time Spent with Patient Time Spent with Patient: >50 minutes Time was spent: preparing to see the patient(eg.review tests), obtaining and/or reviewing separately otained hiistory, ordering medications,tests, procedures, referring, communicating with other health group care worker, indepentently interpreting results, counseling the patient and care coordination
--- NOTE | 2023-11-18 11:48 | PT.INTREAT ---
PT Notes Visit Reasons: Cellulitis Date: 11/18/2023 PRECAUTIONS: Fall, activity as tolerated. Contact precautions in place. SUBJECTIVE: pt in recliner when approached for therapy, pt reports having a difficult time sleeping resulting with pt feeling tired, Pt initially refused participating with therapy, pt refusal brought to Nurse stanislav's attention, came back with this therapist to help motivate pt to participate, pt took awhile to agree to participate but eventually decided to give permission, given it would be only for a shortened session. OBJECTIVE: ? PAIN: yes, stomach bloating VITALS: monitored by nursing ? Therapeutic Exercises [id number] 10mins: Direct one-on-one instruction in therapeutic exercises to develop strength, endurance, range of motion and flexibility. Ambulation ? Assistive Device: FWW ? Weight bearing: WBAT Assist: SBA? Distance:?30'? Deviation: WBOS, low step height, short step length, high reliance on BUE? Provided skilled instruction in proper exercise performance Provided skilled manual cues to facilitate proper muscle recruitment and/or form: ASSESSMENT:?Pt refused further engagement after getting situated back in recliner. reports that he would do the exercises by himself after he rest from the walking. PLAN: will continue to work with balance training, global strengthening and general conditioning for improved safety, mobility and activity tolerance until pt is safe for DC. TREATMENT CODE/TIME: [id number] 10mins (9:41-9:51am)
[2023-11-18] MEDS: Bumetanide 1 MG TAB 2 MG PO (13:50)
[2023-11-18] MEDS: Tamsulosin 0.4 MG CAPCR PO (13:50)
[2023-11-18 14:44] LABS: Lab Add On Test DONE
[2023-11-18 15:00] LABS: Creatine Kinase 98 U/L (39-308)
[2023-11-18 15:36] VITALS: BP 136/72; PULSE 81; RESP 18; TEMP 36.4; O2SAT 96
[2023-11-18] MEDS: Rivaroxaban 15 MG TABLET PO (16:55)
[2023-11-18] MEDS: Atorvastatin 40 MG TAB PO (20:16)
[2023-11-18] MEDS: Insulin Glargine 300 UNITS/3 ML PEN 66 UNITS SC (20:16)
[2023-11-18] MEDS: Melatonin 3 MG TAB PO (20:16)
[2023-11-18 21:09] VITALS: BP 144/84; PULSE 102; RESP 18; TEMP 36.7; O2SAT 98
[2023-11-18] MEDS: LORazepam 0.5 MG TAB PO (22:41)
--- NOTE | 2023-11-19 | DI.MRI_ITS ---
Exam(s) MR LOWER EXTREMITY LT WO EXAM: MR LOWER EXTREMITY LT WO CLINICAL HISTORY: Questioning osteomyelitis. TECHNIQUE: Multiplanar multisequence MRI was performed. COMPARISON: CR XR FOOT LT COMPLETE from 11/12/2023 FINDINGS: Examination is limited by patient motion artifact. The patient refused contrast material. BONES/JOINTS: There is hypointense signal on the T1 weighted images in dorsal portions of the navicul ar, cuneiforms and the bases of the 2nd and 3rd metatarsal bones. There is corresponding T2 hyperint ense signal present. There again seen amputations of the 1st, 2nd and 3rd toes. Residual bases of t he 1st and 3rd proximal phalanges are again noted. No joint effusion identified. MUSCULOTENDINOUS STRUCTURES: Visualized portion of the planar fascia is unremarkable. The visualized intrinsic muscles and tendons of the foot are unremarkable. SOFT TISSUES: There is a skin defect on the dorsum of the foot overlying the cuneiform is. There is mild edema in the surrounding soft tissues. No focal fluid collection is seen. OTHER FINDINGS: None. IMPRESSION: 1. Examination is limited by patient motion artifact and lack of IV contrast. 2. Prior amputations of the 1st, 2nd and 3rd toes as described. 3. Hypointense T1 signal in the navicular, cuneiforms and bases of the 2nd and 3rd metatarsal bones. Osteomyelitis cannot be entirely excluded. 4. Soft tissue defect on the dorsum of the foot overlying the cuneiform is. This may represent a lac eration or ulceration. Please correlate clinically. There is edema seen in the subcutaneous tissues . DATA REPOSITORY:
[2023-11-19 06:42] LABS: Abs Immature Grans 0.31 10^3/uL (0.0-0.06); Absolute Basophil Count 0.05 10^3/uL (0.0-0.2); Absolute Eosinophil Count 0.42 10^3/uL (0.0-0.7); Absolute Lymphocyte Count 0.93 10^3/uL (1.2-3.4); Absolute Monocyte Count 0.64 10^3/uL (0.1-0.8); Absolute Neutrophil Count 5.47 10^3/uL (1.2-6.7); Basophils % 0.6; Eosinophils % 5.4; HCT 30.7 % (40.0-50.0); HGB 9.7 g/dL (13.5-17.5); Lymphocytes % 11.9; MCHC 31.6 % (32.0-36.0); MCV 95 fL (80-95); MPV 9.4 fL (8.0-11.0); Monocytes % 8.2; Neutrophils % 69.9; Nucleated RBC 0.3 % (0.0-0.3); Platelet Count 140 10^3/uL (130-400); RBC 3.23 10^6/uL (4.36-5.78); RDW 16.2 % (11.8-14.1); RDW-SD 56.6 fL; WBC 7.82 10^3/uL (4.4-10.8)
[2023-11-19 07:08] LABS: Anion Gap 10.1 mmol/L (3-11); BUN 46 mg/dL (7-18); CO2 24.9 mmol/L (21.0-32.0); CREATININE 1.8 mg/dL (0.70-1.30); Calcium 9.2 mg/dL (8.5-10.1); Chloride 102 mmol/L (98-107); Estimated GFR 40.49 (mL/min/1.73m2); Glucose 261 mg/dL (74-106); Potassium 3.8 mmol/L (3.5-5.1); Sodium 137 mmol/L (136-145)
[2023-11-19 07:44] VITALS: BP 146/79; PULSE 81; RESP 18; TEMP 36.2; O2SAT 93
[2023-11-19] MEDS: Insulin Aspart 300 UNITS/3 ML PEN SC ×3 (08:25→17:12)
[2023-11-19] MEDS: LINEZOLID 600 MG/300 ML BAG 300 MG IVPB ×2 (08:49→20:27)
--- NOTE | 2023-11-19 08:49 | PDOC.CMPRO ---
Date of service: 11/19/23 Time of Service: 08:49 Care Management Progress Note Progress Note Text Progress Note Text: S/O:Ivan was sitting up in a chair visiting with his when CM met with him. He indicated that he is feeling better and seemed to be in good spirits. Ivan's provider also visited while CM was present and discussed his plan of care. Ivan will have a Podiatry Consult today and an MRI. he has had persistent bacteremia with MRSA, only clearing on Sunday11/16/23. The wound culture is growing the same organism. If the MRI identifies osteomyelitis, Ivan will need 6 weeks of IV antibiotics. If there is no bone involvement, he will likely be able to be discharged on oral antibiotics in a couple of days. Ivan had considered going to rehab but has progressed to the point where he and Mihaela feel he can be managed at home with home health services. A: Ivan is a 68 year old man admitted on 11/12/23 with cellulitis P:Anticipate that Mario will be discharged home, possibly with new home health services, when medically cleared. He is agreeable to services if needed. He will follow up with his PCP and plan of care and transport with family. CM will follow and continue to assess for discharge needs. SDOH(Care Management) Screening Will the Patient Participate in the Screening?: Yes Do you worry about having a steady place to live?: no In the past 12 months, have you had to go without electric, gas, oil or water in your home?: yes Have you or anyone in your house had to go without enough food to eat?: no Has lack of transportation kept you from medical appointments or from doing things needed for daily living?: no Has anyone in your support network made you feel unsafe for any reason?: no Health Related Social Needs Health related social needs: material hardship(utilities)(Z59.87)
[2023-11-19] MEDS: Isosorbide Mononitrate 60 MG TABCR 240 MG PO (08:50)
[2023-11-19] MEDS: Gabapentin 300 MG CAP PO ×2 (08:50→20:28)
[2023-11-19] MEDS: Tamsulosin 0.4 MG CAPCR PO (08:51)
[2023-11-19] MEDS: Bumetanide 1 MG TAB 2 MG PO (08:51)
[2023-11-19] MEDS: Pantoprazole 40 MG TABCR PO (08:51)
[2023-11-19] MEDS: Losartan 50 MG TAB 100 MG PO (08:51)
[2023-11-19] MEDS: Clopidogrel 75 MG TAB PO (08:51)
[2023-11-19] MEDS: amLODIPine 10 MG TAB PO (08:51)
[2023-11-19] MEDS: Metoprolol 50 MG TAB 100 MG PO ×2 (08:51→20:29)
[2023-11-19] MEDS: Allopurinol 100 MG TAB PO (08:52)
[2023-11-19] MEDS: Metoprolol 25 MG TAB PO ×2 (08:52→20:28)
[2023-11-19] MEDS: Metoclopramide 10 MG/2 ML VIAL IVP ×3 (08:52→17:12)
[2023-11-19] MEDS: Polyethylene Glycol 3350 17 GM PACKET PO (08:53)
[2023-11-19 10:27] LABS: Transferrin 140 mg/dL (201-352)
[2023-11-19] MEDS: LORazepam 2 MG/ML VIAL 1 MG IVP (10:52)
--- NOTE | 2023-11-19 11:34 | PTTR_ITS ---
Date of service: 11/19/23 Time of Service: 10:53 PT Notes Visit Reasons: Cellulitis Inpatient Physical Therapy Treatment Note [facility] Date: 11/19/23 PRECAUTIONS: Fall, activity as tolerated. CONTACT PRECAUTIONS IN PLACE DUE TO MRSA IN WOUND. SUBJECTIVE: Patient reports feeling anxious about his upcoming MRI. Patient receives a dose of Ativan just prior to starting therapy. OBJECTIVE: Sitting up in bedside chair with feet in dependent position. Agreeable to therapy, as long as [he doesn't] have to walk. [He doesn't] feel up to that right now. ? PAIN: none reported. VITALS: monitored by nursing staff. ? BED MOBILITY/TRANSFERS? Rolling L/R: not assessed Supine-sit: not assessed ? Sit-supine: not assessed ? Sit-stand: not assessed ? Stand-sit: not assessed ? Bed-Chair: not assessed ? Chair-bed: not assessed ? Therapeutic Exercises ([id number]): Direct one-on-one instruction in therapeutic exercises to develop strength, endurance, range of motion and flexibility. ? Exercises: * 2x10 LAQ vs blue theraband * 2x10 Hamstring curl vs green theraband * 1x10 hip abduction vs blue theraband * 2x10 leg press vs blue theraband * 1x10 row vs green theraband Provided skilled instruction in proper exercise performance Provided skilled manual cues to facilitate proper muscle recruitment and/or form. ASSESSMENT:? Patient tolerates therapy well, no report of pain, no SOB. States that he will walk with therapy this afternoon, after his MRI. PLAN: Continue global strengthening per plan of care until patient is medically cleared for discharge. TREATMENT CODE/TIME: 17 minutes beginning at 10:53
--- NOTE | 2023-11-19 11:48 | W.PM.PROGNOT ---
Date of Service Date of service: 11/19/23 Time of Service: 11:48 Assessment and Plan Assessment and plan (1) Gram-positive bacteremia: Status: Acute Assessment and plan: blood cultures positive for MRSA X2 draws; 3rd blood culture on 11/16 shows no growth at 24 hours Continue Zyvox Platelets stable at 140 Planning for 6 weeks of antibiotic therapy counting from 11/16/2023 as per recommendation from Dr Ward from [facility] [[email or web address]] ID for persistent bacteremia Considering changing/longer length of treatment if MRI is positive for osteomyelitis echocardiogram w/o evidence of vegetation but unable to rule out seeding Wound due to diabetic foot infection MRSA positive (2) Cellulitis: Status: Acute Assessment and plan: diabetic foot infection with cellulitis: On admission HR > 100, RR >20, and YOLANDA, lactate >2 met criteria for severe sepsis Will continue On prolonged course of Zyvox as described above podiatry consult completed: CTA LLE recommended to determine blood supply adequacy to support healing CTA LLE oredered for 11/20 AM Wound care consult completed: Please see notes Ortho consult completed: See notes please Keep foot elevated. Repeat CRP on, 11/16/2023, was trending downward from over 25 to 11.2 xray: No evidence of osteomyelitis;s/p amputations of the 2nd and 3rd toes Wound consult completed, culture sent for wound on left dorsal foot on 11/16, showing MRSA MRI for left lower extremities without to assess for osteomyelitis: Osteomyelitis cannot be enterely excluded as per report. Patient was not enclined to receive contrast. Discussion with Dr. Canchola in radiology: 3 phase bone scan is the second best option in nuc med: order placed for 11/20 YOHANA ordered, no TBI available, doppler pulse positive to LLE (3) Severe sepsis due to methicillin resistant Staphylococcus aureus (MRSA) with acute organ dysfunction: Status: Acute Assessment and plan: As above on admission , improving Cr 4.6 now 1.8 Resuming home medicines that might have a nephrotoxic component gradually but on hold at this time for CTA in AM Continue daily BMP (4) Atrial fibrillation with RVR: Status: Acute Assessment and plan: Rate is still controlled continue continue metoprolol Continue Xeralto dosing adjusted, monitor closely and adjust PRN after CTA (5) Acute kidney injury superimposed on chronic kidney disease: Status: Acute Assessment and plan: creatinine 4.6 on admission, today 1.8 Holding Bumex ARB Allopurinol as CTA planned for AM 11/20 Xeralto dosing readjusted Initially thought to be YOLANDA from pre-renal causes. Might be due to urinary retention and postrenal YOLANDA but might be chronic due to comorbidities despite normal-sized kidneys on renal ultrasound. Urology consult completed: As per Dr. Sanchez if renal function improved drastically with Vanegas catheter, it might have been postrenal YOLANDA and alpha-ralph might be appropriate.Also discussed of 96 hours of flomax d/t YOLANDA on CKD, 3-phase bone scan and CTA, and nephrotoxic meds adjustement today; Vanco is now an option as CrCl improves vanegas catheter placed for accurate I&O and urinary retention Continue Tamsulosin d/c vanegas on 11/22/2023 for voiding trial Choose non nephrotoxic drugs as much as possible,consider renal dosing as needed. Oral hydration well-tolerated fluid restriction 1 L started for sodium 130, normal saline also at 80 cc an hour initiated for 1 liter on 11/16 Na remains 137 today, fluid restriction discontinue on 11/19, encourage other fluids that H2O CTA of the left lower extremity on 11/20: IVF hydration post-procedure as patient was already c/o peripheral swelling renal US: FINDINGS: Renal size in cm: Right: 12.3. Left: 13.7. Echogenicity: Normal. Hydronephrosis: No. Cyst or mass: No. Nephrolithiasis: No. Other findings: Mild diffuse cortical thinning. Bladder:Normal. Ureteral jets: Right: Not visualized on this examination. Left: Not visualized on this examination. Prevoid vol:879 cc Postvoid vol:The patient was unable to void. Prostate: Not visualized. Renal color flow: Symmetric and within normal limits. IMPRESSION: 1. Mild cortical thinning but no evidence of hydronephrosis or renal mass is seen sonographically. 2. The patient was unable to void during the examination. The urinary bladder is grossly unremarkable. (6) Diabetes mellitus type 2: Status: Acute Assessment and plan: Still holding metformin Hemoglobin A1c: 6.6 on 11/13/2023 Capillary blood sugar readings:269-346 On resistant sliding scale insulin coverage , continue and gluc AC and HS and increasing daily basal insulin bolus by 10 units for a total of 76 units at HS; CrCl 52; patient had a total of 45 units for Aspart in 24 hours. (7) Morbid obesity: Status: Acute Assessment and plan: On diabetic diet and nutrition consult completed Was on semaglutide at home, but not as an inpatient Counseled for ongoing discussed of weight loss with primary care provider when discharged (8) ERENDIRA (obstructive sleep apnea): Status: Chronic Assessment and plan: On home BIPAP (9) Acute insomnia: Status: Acute Assessment and plan: Lorazepam 0.5 mg oral at HS and also has melatonin (10) Discharge planning issues: Status: Acute Assessment and plan: DVT prophylaxis- anticoagulated on Xeralto for atrial fibrillation, no DVT prophylaxis drug indicated anticipate discharge to home with resumption of HH services VS short term rehabilitation; care management following for discharge needs. Patient feels that he could mange at home but awaiting podiatry consult result to concur with patient Awaiting for negative blood culture while on IV antibiotics. Planning for 6 weeks of antibiotic after first negative blood culture discussed with DR Merritt Subjective Subjective Interval history since last seen: Patient reports sleeping for about 4 hours better than the previous night, reports eating well drinking well, no acute distress, no fever night sweats or chills, nausea vomiting or diarrhea, no dysuria or hematuria. Reports feeling less tired this morning. Exam Narrative Exam Narrative: HENMT: Facial structures with normal appearance Neuro:alert and oriented x 4 ,no neurological focal deficit Resp: Normal respiratory pattern, speaks in full sentences, clear lungs Cardio: irregular, S1, S2, no murmur, swelling to hand and fingers diminish, GI: Abdomen is large ,not distended, soft and non tender, bowel sounds are present : No bladder distension; Vanegas catheter in place draining clear yellow urine Back/spine/Pelvis: No spine tenderness, normal alignment, soft tissue pressure/ pain around coccyx area Integumentary: rash localized to bilateral distal hands has improved; LLE swelling improving, limb remains discolored; to see new product trainer today Extremities: strength 5/5 to bilateral lower and upper extremities,feet are swollen Psych: RASS 0, congruent mood and normal to depress affect. Objective Last Vital Signs Temp 36.2 C L 11/19/23 07:44 Pulse 81 11/19/23 07:44 Resp 18 11/19/23 07:44 BP 146/79 H 11/19/23 07:44 Pulse Ox 93 11/19/23 07:44 Laboratory Results - last 24 hr 11/18/23 11/19/23 06:10 06:03 WBC 7.82 RBC 3.23 L Hgb 9.7 L Hct 30.7 L MCV 95 MCH 30.0 MCHC 31.6 L RDW 16.2 H Plt Count 140 MPV 9.4 Immature Gran % 4.0 Neutrophils % 69.9 Lymphocytes % 11.9 Monocytes % 8.2 Eosinophils % 5.4 Basophils % 0.6 Nucleated RBC % 0.3 Absolute Neutrophils 5.47 Absolute Lymphocytes 0.93 L Absolute Monocytes 0.64 Absolute Eosinophils 0.42 Absolute Basophils 0.05 Sodium 137 Potassium 3.8 Chloride 102 Carbon Dioxide 24.9 Anion Gap 10.1 BUN 46 H Creatinine 1.8 H Est GFR (CKD-EPI 2020) 40.49 Glucose 261 H Calcium 9.2 Creatine Kinase 98 Add-On Test Request DONE Time Spent with Patient Time Spent with Patient: >50 minutes Time was spent: preparing to see the patient(eg.review tests), obtaining and/or reviewing separately otained hiistory, ordering medications,tests, procedures, referring, communicating with other health healthcare management consultant, indepentently interpreting results, counseling the patient and care coordination
[2023-11-19] MEDS: Normal Saline Flush 10 ML SYR IVP ×2 (11:52→20:27)
[2023-11-19] MEDS: Gadoterate meglumine 20 ML SYRINGE IVP (11:53)
[2023-11-19] MEDS: Collagenase 30 GM TUBE TP (12:45)
[2023-11-19] MEDS: Mupirocin 2% Oint. 22 GM TUBE TP (12:46)
--- NOTE | 2023-11-19 14:23 | W.PODCONSULT ---
Date of service: 11/19/23 Time of Service: 12:30 Assessment and Plan Assessment and plan (1) Unstageable pressure ulcer of left foot: Status: Acute (2) Chronic ulcer of left foot with fat layer exposed: Status: Acute (3) Ulcer of left lower leg: Status: Acute (4) Venous insufficiency: Status: Acute (5) Atherosclerotic PVD with ulceration: Status: Acute (6) Diabetic ulcer of foot associated with diabetes mellitus due to underlying condition, with bone involvement without evidence of necrosis: Status: Acute (7) Severe sepsis due to methicillin resistant Staphylococcus aureus (MRSA) with acute organ dysfunction: Status: Acute (8) Gram-positive bacteremia: Status: Acute (9) Cellulitis: Status: Acute (10) Atrial fibrillation with RVR: Status: Acute (11) Acute kidney injury superimposed on chronic kidney disease: Status: Acute (12) CHF (congestive heart failure): Status: Chronic (13) Venous stasis syndrome: Status: Active (14) Morbid obesity: Status: Acute (15) Osteomyelitis of left foot: Status: Acute Assessment and plan: This is a 68-year-old patient with history of diabetes seen bedside for left lower extremity ulcers. The patient has resolving bacteremia. Cultures show MRSA. X-rays were obtained and note noted to be with partial amputation to the left first and third toe as well as amputation to the left second toe which remains stable at this time. Patient does have an unstageable ulcer to the plantar aspect of the left great toe however currently not infected. Patient has a large ulcer to the dorsum of the left midfoot directly over the bases of the second third and fourth metatarsals. On MRI review there is some hypointense signal to the navicular the cuneiform and the bases of the second and third metatarsals with insufficient evidence for osteomyelitis however. Patient does have drainage from this wound concerning for deeper infection. No palpable abscess noted at this time which is correlated with the findings on MRI which is negative for an abscess at this time. Three-phase bone scan pending. Patient also has peripheral arterial disease with nonpalpable pulses however present on Doppler. He does have arterial calcifications noted on imaging. I recommend a CT angio with runoff to the lower extremity to evaluate for circulation. Will update the plan pending CTA. For now, we will continue with conservative care with dressing changes to be performed by nursing daily with antibiotic ointment, 4 x 4, Kerlix, Mitch wrap. Will continue to follow. Thank you for the consultation History of Present Illness Narrative: I have to go across the street this is a 68-year-old male patient with history of diabetes CHF A-fib and obesity who presented to the hospital for malaise generalized weakness weakness anorexia. Patient noted to have bacteremia with MRSA. Patient does have left lower extremity ulcers which podiatry is consulted for. Patient is seen bedside today with his present. Patient reports swelling bilaterally. He reports history of ulcers. He states that he has a sales and in home delivery specialist at the [facility] who take a look at the wounds. He reports a new ulcer to the dorsum of the left foot week she is not sure how long he has had it for. He states that he started to have a wound to the left great toe. He does report history of ulcers to the left great toe. Does also report history of amputations to the left foot. Reports history of partial amputations to the left hallux second and third toes which have remained healed since. Consults Consult date: 11/19/23 Requesting physician: Dori Aragon Review of Systems Cardiovascular Comments: Nonpalpable pulses left lower extremity Integumentary/Breasts Comments: Full-thickness ulceration to the left lower extremity Neurologic Comments: Light touch sensation absent bilateral lower extremity Hematologic/Lymphatic Comments: Venous/arterial disease bilateral lower extremity. [facility] All Active Problems (Updated 11/19/23 @ 15:32 by Salena Chua DPM) Osteomyelitis of left foot (Acute) Atherosclerotic PVD with ulceration (Acute) Venous insufficiency (Acute) Ulcer of left lower leg (Acute) Chronic ulcer of left foot with fat layer exposed (Acute) Unstageable pressure ulcer of left foot (Acute) Acute insomnia (Acute) ERENDIRA (obstructive sleep apnea) (Chronic) Diabetic ulcer of foot associated with diabetes mellitus due to underlying condition, with bone involvement without evidence of necrosis (Acute) Chest pain (Acute) Urinary retention with incomplete bladder emptying (Acute) Elevated serum creatinine (Acute) Severe sepsis due to methicillin resistant Staphylococcus aureus (MRSA) with acute organ dysfunction (Acute) Discharge planning issues (Acute) Gram-positive bacteremia (Acute) Cellulitis (Acute) Atrial fibrillation with RVR (Acute) Acute kidney injury superimposed on chronic kidney disease (Acute) CHF (congestive heart failure) (Chronic) History of: (Active) Right frozen shoulder, resolved. Right elbow tendinitis, now resolved. S/P hydrocele repair. 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 History of metatarsal fracture. Metabolic syndrome X (Active) Dyslipidemia (Active) Triglycerides greater than 600 and HDL in the 20s, consistent with metabolic syndrome. Atrial fibrillation (Active) Tinea cruris (Active) Venous stasis syndrome (Active) Morbid obesity (Acute) VA of 46. Gastroesophageal reflux disease (Active) Diabetes mellitus type 2 (Acute) Uncontrolled, usually on high dose insulin; known retinopathy and mild nephropathy. Benign hypertension (Active) Umbilical hernia (Active) Cellulitis and abscess of leg (Acute) Recurrent. Social History Smoking/Tobacco Use Status: Former Tobacco Use Smoking risk assessment performed?: Yes Alcohol Intake: never Drug use: Never Substance use type: does not use Housing: house Do you feel safe at home: Yes Do you feel safe in your relationship?: Yes Exam Extrem Other: Left lower extremity physical exam: Derm: Unstageable ulceration noted to the dorsum of the left foot measuring approximately 3 cm x 3 cm, the base is 50% fibrotic 50% eschar mild seropurulent drainage noted from the wound no periwound erythema noted no crepitus no bogginess no fluctuance no probe to bone or capsule noted no undermining no tunneling. Unstageable ulceration noted to the plantar aspect of the left great toe the base is 100% eschar with some hyperkeratotic tissue around it, no erythema no edema no drainage no malodor no tunneling no undermining at this time. Ulceration noted to the left leg anterior aspect of the calf without any periwound erythema edema drainage or malodor. Skin is otherwise warm dry and scaly to the left foot. Growth is absent to the left foot. MSK: No tenderness to palpation noted to the left foot at this time no gross deformity noted. There is history of partial amputation to the left great toe and left third toe full amputation noted to the left second toe. Vascular: DP PT pulses are nonpalpable to the left lower extremity, monophasic on Doppler, skin is warm to touch, hair growth is absent, edema noted to the left lower extremity. Neuro: Light touch sensation noted to be absent to the left foot Results Last Vital Signs Temp 97.2 F L 11/19/23 07:44 Pulse 81 11/19/23 07:44 Resp 18 11/19/23 07:44 BP 146/79 H 11/19/23 07:44 Pulse Ox 93 11/19/23 07:44 Labs 11/19/23 06:03 11/19/23 06:03 Labs: Laboratory Results - last 24 hr 11/16/23 11/18/23 11/19/23 09:15 06:10 06:03 WBC 7.82 RBC 3.23 L Hgb 9.7 L Hct 30.7 L MCV 95 MCH 30.0 MCHC 31.6 L RDW 16.2 H Plt Count 140 MPV 9.4 Immature Gran % 4.0 Neutrophils % 69.9 Lymphocytes % 11.9 Monocytes % 8.2 Eosinophils % 5.4 Basophils % 0.6 Nucleated RBC % 0.3 Absolute Neutrophils 5.47 Absolute Lymphocytes 0.93 L Absolute Monocytes 0.64 Absolute Eosinophils 0.42 Absolute Basophils 0.05 Sodium 137 Potassium 3.8 Chloride 102 Carbon Dioxide 24.9 Anion Gap 10.1 BUN 46 H Creatinine 1.8 H Est GFR (CKD-EPI 2020) 40.49 Glucose 261 H Calcium 9.2 Transferrin 140 L Creatine Kinase 98 Add-On Test Request DONE Imaging Imaging Studies: Admission Date: 11/12/23 : 1955 Age: 68 Exam(s) MR LOWER EXTREMITY LT WO EXAM: MR LOWER EXTREMITY LT WO CLINICAL HISTORY: Questioning osteomyelitis. TECHNIQUE: Multiplanar multisequence MRI was performed. COMPARISON: CR XR FOOT LT COMPLETE from 11/12/2023 FINDINGS: Examination is limited by patient motion artifact. The patient refused contrast material. BONES/JOINTS: There is hypointense signal on the T1 weighted images in dorsal portions of the navicular, cuneiforms and the bases of the 2nd and 3rd metatarsal bones. There is corresponding T2 hyperintense signal present. There again seen amputations of the 1st, 2nd and 3rd toes. Residual bases of the 1st and 3rd proximal phalanges are again noted. No joint effusion identified. MUSCULOTENDINOUS STRUCTURES: Visualized portion of the planar fascia is unremarkable. The visualized intrinsic muscles and tendons of the foot are unremarkable. SOFT TISSUES: There is a skin defect on the dorsum of the foot overlying the cuneiform is. There is mild edema in the surrounding soft tissues. No focal fluid collection is seen. OTHER FINDINGS: None. IMPRESSION: 1. Examination is limited by patient motion artifact and lack of IV contrast. 2. Prior amputations of the 1st, 2nd and 3rd toes as described. 3. Hypointense T1 signal in the navicular, cuneiforms and bases of the 2nd and 3rd metatarsal bones. Osteomyelitis cannot be entirely excluded. 4. Soft tissue defect on the dorsum of the foot overlying the cuneiform is. This may represent a laceration or ulceration. Please correlate clinically. There is edema seen in the subcutaneous tissues. Admission Date: 11/12/23 : 1955 Age: 68 Exam(s) XR FOOT LT COMPLETE EXAM: XR FOOT LT COMPLETE CLINICAL HISTORY: question of osteomyelitis; DM foot ulcer. TECHNIQUE: 2D digital imaging was performed. Three views. COMPARISON: CR LEFT FOOT COMPLETE from 03/16/2018 FINDINGS: Stable appearance of amputation at the base of the proximal phalanx of the great toe. There has been interval amputation of the entire 2nd toe. Amputation of the 3rd toe since the prior exam with residual remaining proximal portion. Adjacent soft tissue swelling. No foreign body or bony erosions. Degenerative changes again noted in the intertarsal region. IMPRESSION: Status post amputations of the 2nd and 3rd toes. No plain film evidence of osteomyelitis.
--- NOTE | 2023-11-19 14:25 | PT.INPN ---
PT Notes Visit Reasons: Cellulitis Inpatient Physical Therapy Progress Note Date: 11/19/23 Dates of Service: 11/13/2023 through 11/19/2023 Referring Doctor: Elizabet Mccord NP PT Orders: PT CONSULT: limited ability to ambulate Precautions: Fall. Contact precautions for MRSA in wound. Diabetic shoe on the R and post-op shoe on the L when OOB. CircAid compression garment on the R during the day. Subjective: Patient hoping to go home this Sunday. He feels very much improved, feels the same way. Patient adds that he has not walked this far since he was admitted. Denies pain in B legs and feet, he does not have any sensation there. Patient and understands the importance of using proper footwear to allow for healing of wounds and preserve integrity of skin in the R foot. verbalizing how she would ensure that patient is isolated from all the other members of the house. [facility]. Patient adds that he is a 100% disabled . Per patient will be isolated in a room where he will be provided with bedside commode. Objective: General Observation: High BMI. Abdominal pannus. Pleasant and cooperative. IV in L UE. Bowen catheter in place. 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 CircAid garments to R leg. Skin rashes in voalr aspect of B hands R popliteal, and back. Mental Status: A&Ox3 Pain: Chronic low back pain ROM: Right Upper Extremity: WFL Left Upper Extremity: WFL Right Lower Extremity: hip motion limited by abdominal girth. Tolerates 100* flexion. Knee motion 0-110. Left Lower Extremity: hip motion limited by abdominal girth. Tolerates 100* flexion. Knee motion 0-110. Strength: Right Upper Extremity: WFL Left Upper Extremity: WFL Right Lower Extremity: Hip flexion 4/5. Quads 4/5. HS 3/5. Ankle DF 3/5 or greater. Left Lower Extremity: Hip flexion 4/5. Quads 4/5. HS 3/5. Ankle DF 3/5 or greater. Sensation: Asensate bilat feet and pdistal legs Bed Mobility/Transfers: sit-stand: independent stand-sit: independent Gait: Ambulated 100 feet (walked from door to window x 4) with FWW, supervision assist only. Diabetic shoe on R, post-op shoe on L. No SOB. No LOB. Minimal fatigue that resolved with rest. Minimal cueing only for directional change. Balance: Static Sitting: Good Dynamic Sitting: Good Static Standing: Fair Dynamic Standing: Fair Special Tests: Mobility Limitations Standardized Measure [facility] AM-PAC 6 clicks Basic Mobility Inpatient Short Form: Raw Score: 23 CMS Score: 11% impairment Informed Consent/Education: Patient instructed in purpose of PT consult and plan of care. THERA EX: Explained rationale of regular ROM exercises in relation to increased circulation that can facilitate healing of wounds. Seated hip flexion x 10 LAQ x 10 Ankle pumps x 10 Assessment: Improved functional mobility performance, activity tolerance, and exercise execution. MRI this morning to rule out osteomyelitis, results pending. Will need bariatric FWW for optimal transfer and ambulation completion. Ensure that diabetic shoe is on the R and post-op shoe on the L when OOB to protect and cushion skin of feet. Patient is assessed as Moderate 63929 complexity based on the following: History: as above. Complicating factor of poor baseline mobility and multiple medical comorbidities. Examination: functional limitations as noted above Presentation: evolving due to acute medical status Decision Makin moderate complexity Goals: Goals X1 week 1. Supine-Sit : independent MET 2. Sit-Supine : independent MET 3. Sit-Stand : independent MET 4. Stand-Sit : independent MET 5. Bed-Chair : supervision with FWW MET 6. Chair-Bed : supervision with FWW MET 7. Gait : supervision with FWW x 30' MET, PROGRESS to independent with bariatr FWW 8. Stairs : able to ascend and descend 12 steps with bilat rails, SBA Plan of Care/Treatment Plan: 1-2x/day, 7 days/week x 1 week. Plan of care has been reviewed with the [employer] providing the service under Physical Therapy direction. Initiate Physical Therapy intervention for strengthening, bed mobility, transfers, gait, stairs, balance training, use of assistive device. DISCHARGE RECOMMENDATIONS: Home with HH PT TREATMENT CODE/TIME: 63626 x 25 minutes for 2 units, 77593 x 14 minutes for 1 unit beginning at 13:39 PM.
[2023-11-19 14:49] VITALS: BP 133/70; PULSE 79; RESP 17; TEMP 36.4; O2SAT 97
[2023-11-19] MEDS: Rivaroxaban 10 MG TABLET 20 MG PO (17:13)
[2023-11-19 20:26] VITALS: BP 135/77; PULSE 80; RESP 16; TEMP 36.9; O2SAT 98
[2023-11-19] MEDS: Melatonin 3 MG TAB PO (20:28)
[2023-11-19] MEDS: Atorvastatin 40 MG TAB PO (20:28)
[2023-11-19] MEDS: LORazepam 0.5 MG TAB PO (20:29)
[2023-11-19] MEDS: Insulin Glargine 300 UNITS/3 ML PEN 76 UNITS SC (21:12)
[2023-11-19 23:00] VITALS: BP 129/75; PULSE 78; RESP 18; TEMP 37.6; O2SAT 97
[2023-11-19] MEDS: Acetaminophen 325 MG TAB 650 MG PO (23:17)
[2023-11-20 06:52] LABS: HCT 32.3 % (40.0-50.0); HGB 10.2 g/dL (13.5-17.5); MCH 30.4 pg (27.0-33.0); MCHC 31.6 % (32.0-36.0); MCV 96 fL (80-95); MPV 9.3 fL (8.0-11.0); Platelet Count 147 10^3/uL (130-400); RBC 3.36 10^6/uL (4.36-5.78); RDW 16.5 % (11.8-14.1); RDW-SD 58.1 fL; WBC 7.77 10^3/uL (4.4-10.8)
[2023-11-20 07:02] LABS: Anion Gap 11.4 mmol/L (3-11); BUN 45 mg/dL (7-18); CO2 24.6 mmol/L (21.0-32.0); Chloride 98 mmol/L (98-107); Estimated GFR 35.68 (mL/min/1.73m2); Glucose 259 mg/dL (74-106); Magnesium 1.8 mg/dL (1.8-2.4); Potassium 3.6 mmol/L (3.5-5.1); Sodium 134 mmol/L (136-145)
[2023-11-20 07:15] LABS: Absolute Lymphocyte Count 0.78 10^3/uL (1.2-3.4); Absolute Monocyte Count 0.47 10^3/uL (0.1-0.8); Absolute Neutrophil Count 5.75 10^3/uL (1.2-6.7); Bands % 1
[2023-11-20 07:16] LABS: Absolute Eosinophil Count 0.39 10^3/uL (0.0-0.7); Anisocytosis 1+; Diff Comment Manual Differential; Metamyelocytes % 3; Myelocytes % 2; Polychromasia Present
[2023-11-20] MEDS: Metoclopramide 10 MG/2 ML VIAL IVP ×3 (07:39→16:16)
[2023-11-20] MEDS: Metoprolol 25 MG TAB PO ×2 (07:41→20:58)
[2023-11-20] MEDS: Tamsulosin 0.4 MG CAPCR PO (07:42)
[2023-11-20] MEDS: Isosorbide Mononitrate 60 MG TABCR 240 MG PO (07:42)
[2023-11-20] MEDS: Metoprolol 50 MG TAB 100 MG PO ×2 (07:42→20:58)
[2023-11-20] MEDS: Pantoprazole 40 MG TABCR PO (07:43)
[2023-11-20] MEDS: Gabapentin 300 MG CAP PO ×2 (07:43→20:58)
[2023-11-20] MEDS: amLODIPine 10 MG TAB PO (07:43)
[2023-11-20] MEDS: Clopidogrel 75 MG TAB PO (07:43)
[2023-11-20] MEDS: Collagenase 30 GM TUBE TP (07:44)
[2023-11-20] MEDS: Insulin Aspart 300 UNITS/3 ML PEN SC ×4 (07:45→16:56)
[2023-11-20 07:48] VITALS: BP 156/77; PULSE 78; RESP 18; TEMP 36.1; O2SAT 98
--- NOTE | 2023-11-20 08:00 | DI.CT_ITS ---
Exam(s) CT ABD AORTA CTA W RUNOFF EXAM: CT ABD AORTA CTA W RUNOFF CLINICAL HISTORY: hypoperfusion in the setting of osteomylelitis. TECHNIQUE: Imaging Protocol: Axial computed tomography images with coronal and sagittal reformatted images were created and reviewed CONTRAST MATERIAL: Intravenous: Omnipaque 350 Contrast volume:100 ml Oral: None COMPARISON: CT CT ABDOMEN PELVIS WO from 11/14/2023 FINDINGS: This study will need to be repeated and there is a paucity of intraluminal contrast Distal to the iliac vessels. Abdominal aorta: There is no evidence of abdominal aortic aneurysm. Celiac and superior mesenteric a rteries are patent as are the renal arteries without significant ostial nor more distal stenosis in t he renal arteries There is significant atherosclerotic disease in the distal abdominal aorta but without occlusion of t he in inferior mesenteric artery. No aneurysm at this level. There is no tight stenosis at the aortic bifurcation. There is moderate disease along the medial wall of the right common iliac artery but no critical sten osis. Below this level there is insufficient intraluminal contrast for diagnostic study. IMPRESSION: 1. Atherosclerotic distal abdominal aorta but without evidence of abdominal aortic aneurysm. 2. Contrast below the aortic bifurcation is insufficient for interpretation. 3. If clinically indicated repeat study can be attempted after adequate hydration. RADIATION DOSE DELIVERED: 2,152.3mGy.cm Total DLP DATA REPOSITORY: All CT scans at this facility are submitted to the National Radiology Data Registry (NRDR) Dose Index Registry (DIR) with the [employer] (ACR). RADIATION OPTIMIZATION: All CT scans at this facility use at least one of these dose optimization te chniques: automated exposure control; mA and/or kV adjustment per patient size (includes targeted exa ms where dose is matched to clinical indication); or iterative reconstruction.
--- NOTE | 2023-11-20 08:00 | DI.NM_ITS ---
Exam(s) NM BONE SCAN 3 PHASE EXAM: NM BONE SCAN 3 PHASE CLINICAL HISTORY: Osteomyelitis. TECHNIQUE: Injected Dose: 27 mCi Tc-99m MDP COMPARISON: NE VENTILATION LUNG SCAN GRP from 01/28/2018 MR MR LOWER EXTREMITY LT WO from 11/19/2023 FINDINGS: Perfusion phase: Asymmetric increased uptake-hyperemia in the left foot evident Blood Pool: Increased uptake in the left midfoot corresponding to what appears to be medial and middl e cuneiform bones. Delayed images performed at 3.5 hours: Exhibit intense uptake in mid foot bones which appear to be th e cuneiforms IMPRESSION: 1. This triple phase bone scan is significantly suspicious for osteomyelitis in the left midfoot bone s. Most probably involving at least the medial and mid cuneiform bones. Probably also the lateral c uneiform. Also probably 2nd metatarsal base. All of the bones which exhibit abnormal signal on frances tamayo's MRI scan exhibit abnormal radiopharmaceutical uptake on this nuclear medicine study DATA REPOSITORY:
[2023-11-20] MEDS: LINEZOLID 600 MG/300 ML BAG 300 MG IVPB (09:08)
--- NOTE | 2023-11-20 09:16 | PGE_ITS ---
Date of Service Date of service: 11/20/23 Time of Service: 09:16 Assessment and Plan Assessment and plan (1) Gram-positive bacteremia: Status: Acute Assessment and plan: blood cultures positive for MRSA X2 draws; negative blood culture on 11/16 Stop Zyvox, possible ADR to dapto is also:rash Start Vancomycin and monitor : pharmacy consulte Platelets stable at 147 Planning for 6 weeks of antibiotic therapy counting from 11/16/2023 as per recommendation from Dr Ward from [facility] ID for persistent bacteremia MRI inconclusive for osteomyelitis 3-phase bone scan :positive for Osteomyelitis if Cr is improving consider Vanco would be an option for osteomyelitis Doxy is also another option as per Dr. Chua echocardiogram w/o evidence of vegetation but unable to rule out seeding Wound due to diabetic foot infection MRSA positive (2) Cellulitis: Status: Acute Assessment and plan: diabetic foot infection with cellulitis: On admission HR > 100, RR >20, and YOLANDA, lactate >2 met criteria for severe sepsis Will stop Zyvox and start Vancomycin as described above podiatry consult completed: CTA LLE pending to determine blood supply adequacy to support healing Dr. Roberts recommended IVF this AM prior to CTA ; BMP this PM , NS 1 l at 250 cc/hr ordered then NS at 80 cc/hr overnight, BMP in AM CTA results pending. MRI for left lower extremities inconclusive for osteomyelitis 3-phase bone scan positive for osteomyelitis Keep foot elevated. Repeated CRP from over 25 to 11.2 Wound consult completed: on 11/16, showing MRSA to dorsal aspect of the left foot Wound care consult completed: Please see notes Ortho consult completed: See notes please (3) Severe sepsis due to methicillin resistant Staphylococcus aureus (MRSA) with acute organ dysfunction: Status: Acute Assessment and plan: As above on admission , improving Cr 4.6 now 2.0 Resuming home medicines that might have a nephrotoxic component gradually but on hold at this time for CTA Continue PRN & daily BMP (4) Atrial fibrillation with RVR: Status: Acute Assessment and plan: Rate is controlled continue continue metoprolol Continue Xeralto dosing adjusted, monitor closely and adjust PRN after CTA (5) Acute kidney injury superimposed on chronic kidney disease: Status: Acute Assessment and plan: creatinine 4.6 on admission, 1.8 on 11/19 and 2.0 today Holding Bumex ARB Allopurinol as CTA planned for AM 11/20 Xeralto dosing : pharmacy consulted Initially thought to be YOLANDA from pre-renal causes. Might be due to urinary retention and postrenal YOLANDA but might be chronic due to comorbidities despite normal-sized kidneys on renal ultrasound. Urology consult completed: As per Dr. Sanchez if renal function improved drastically with Vanegas catheter, it might have been postrenal YOLANDA and alpha- ralph might be appropriate.Also discussed of 96 hours of flomax d/t YOLANDA on CKD, 3-phase bone scan and CTA, and nephrotoxic meds adjustement today; Vancomycin:as CrCl improved vanegas catheter placed for accurate I&O and urinary retention Continue Tamsulosin plan to d/c vanegas on 11/22/2023 for voiding trial -Punctured bag today as per nursing with concerns for contamination -Vanegas can be discontinued , Bladder sacn Q 6 and post voids Choose non nephrotoxic drugs as much as possible,consider renal dosing as needed. Oral hydration well-tolerated fluid restriction 1 L started for sodium 133 might , normal saline also at 80 cc an hour initiated for 1 liter on 11/16 Na remains 137 today, fluid restriction discontinue on 11/19, encourage other fluids that H2O CTA of the left lower extremity on 11/20: IVF hydration pre-procedure as per radiologist and also post-procedure renal US: FINDINGS: Renal size in cm: Right: 12.3. Left: 13.7. Echogenicity: Normal. Hydronephrosis: No. Cyst or mass: No. Nephrolithiasis: No. Other findings: Mild diffuse cortical thinning. Bladder:Normal. Ureteral jets: Right: Not visualized on this examination. Left: Not visualized on this examination. Prevoid vol:879 cc Postvoid vol:The patient was unable to void. Prostate: Not visualized. Renal color flow: Symmetric and within normal limits. IMPRESSION: 1. Mild cortical thinning but no evidence of hydronephrosis or renal mass is seen sonographically. 2. The patient was unable to void during the examination. The urinary bladder is grossly unremarkable. (6) Diabetes mellitus type 2: Status: Acute Assessment and plan: Still holding metformin Hemoglobin A1c: 6.6 on 11/13/2023 Capillary blood sugar reading 276, patient does carb coverage with meals and takes 100 units of lantus BID Intiate carb coverage with meals: 2 units per 10 gm of carbs On resistant sliding scale insulin coverage , continue and gluc AC and HS and daily basal insulin bolus of 76 Monitoring for lower Aspart dosing, had 45 units/24 hours (7) Morbid obesity: Status: Acute Assessment and plan: Continue diabetic diet Nutrition consult completed Was on semaglutide at home for weight and DM mangement Counseled for ongoing discussed of weight loss with primary care provider when discharged (8) ERENDIRA (obstructive sleep apnea): Status: Chronic Assessment and plan: On home BIPAP during stay (9) Acute insomnia: Status: Acute Assessment and plan: Continue Lorazepam 0.5 mg oral at HS and also has melatonin (10) Discharge planning issues: Status: Acute Assessment and plan: DVT prophylaxis- anticoagulated on Xeralto for atrial fibrillation, no DVT prophylaxis drug indicated anticipate discharge to home with resumption of HH services VS short term rehabilitation; care management following for discharge needs. Patient feels that he could manage at home: Awaiting CTA and bone scan PO vs IV antibiotic pending 3-phase bone scan results. Planning for 6 weeks of antibiotic after first negative blood culture on 11/[address] Merritt Subjective Subjective Patient reports: no new complaints, tolerating liquids well, tolerating a regular diet, voiding w/o difficulty (Vanegas), flatus, bowel movement (11/19), afebrile and other (Slept for 5 hours only); denies still having pain, diarrhea, blood in stool, nausea, vomiting or shortness of breath Exam Narrative Exam Narrative: HENMT: Facial structures with normal appearance Neuro:alert and oriented x 4 ,no focal neuro deficit Resp: Normal respiratory pattern, speaks in full sentences, clear lungs Cardio: irregular, S1, S2, no murmur, swelling to hand and fingers still present GI: Abdomen is large ,not distended, soft and non tender, bowel sounds are present : No bladder distension; Vanegas catheter in place draining clear yellow urine Back/spine/Pelvis: No spine tenderness, normal alignment, soft tissue pressure/ pain around coccyx area Integumentary: rash localized to bilateral distal hands, now spreading rash from wrist has improved; LLE swelling improving, limb remains discolored; to see pricing lead today Extremities: strength 5/5 to bilateral lower and upper extremities,feet are swollen Psych: RASS 0, congruent mood and normal to depress affect. Objective Last Vital Signs Temp 36.1 C L 01/30/24 07:48 Pulse 78 11/20/23 07:48 Resp 18 11/20/23 07:48 BP 156/77 H 11/20/23 07:48 Pulse Ox 98 11/20/23 07:48 Laboratory Results - last 24 hr 11/16/23 11/20/23 09:15 06:30 WBC 7.77 RBC 3.36 L Hgb 10.2 L Hct 32.3 L MCV 96 H MCH 30.4 MCHC 31.6 L RDW 16.5 H Plt Count 147 MPV 9.3 Immature Gran % See Differential Neutrophils % 73.0 Band Neutrophils % 1 Lymphocytes % 10.0 Monocytes % 6.0 Eosinophils % 5.0 Basophils % 0.0 Metamyelocytes % 3 Myelocytes % 2 Nucleated RBC % 0.0 Absolute Neutrophils 5.75 Absolute Lymphocytes 0.78 L Absolute Monocytes 0.47 Absolute Eosinophils 0.39 Absolute Basophils 0.00 Polychromasia Present Anisocytosis 1+ Sodium 134 L Potassium 3.6 Chloride 98 Carbon Dioxide 24.6 Anion Gap 11.4 H BUN 45 H Creatinine 2.0 H Est GFR (CKD-EPI 2020) 35.68 Glucose 259 H Calcium 9.0 Magnesium 1.8 Transferrin 140 L Time Spent with Patient Time Spent with Patient: >50 minutes Time was spent: preparing to see the patient(eg.review tests), obtaining and/or reviewing separately otained hiistory, ordering medications,tests, procedures, referring, communicating with other health healthcare applications analyst, indepentently interpreting results, counseling the patient and care coordination
[2023-11-20] MEDS: Normal Saline 250 ML IV (09:23)
[2023-11-20] MEDS: Normal Saline 500 ML 250 ML IV (11:11)
[2023-11-20] MEDS: Normal Saline Flush 10 ML SYR IVP ×4 (11:39→20:57)
--- NOTE | 2023-11-20 11:58 | PTTR_ITS ---
Date of service: 11/20/23 Time of Service: 10:52 PT Notes Visit Reasons: Cellulitis Inpatient Physical Therapy Treatment Note [facility] Date: 11/20/23 PRECAUTIONS: Fall, standard, contact, activity as tolerated, shoes for all OOB mobility. SUBJECTIVE: Patient reports feeling pretty good. AFTERNOON: Patient reports having been given drugs prior to his CT scan, is concerned about his balance. Feels very loopy. Expresses anxiety about whether he will be getting a second scan today and if he does, whether the medications will have worn off prior. OBJECTIVE: Sitting up in bedside chair, agreeable to therapy. Vanegas in place. This clinician assist patient in donning his shoes. AFTERNOON: Sitting up in bedside chair, discontinued vanegas. Agreeable to therapy, seated. Worries he will fall if he ambulates with these medications on board. This clinician makes a note about patient wearing his shoes for OOB mobility on whiteboard. ? PAIN: none reported. VITALS: monitored by nursing staff. ? BED MOBILITY/TRANSFERS? Rolling L/R: not assessed Supine-sit: not assessed ? Sit-supine: not assessed ? Sit-stand x6: SBA ? Stand-sit: SBA ? Bed-Chair: SBA? Chair-bed: SBA ? Therapeutic Exercises ([id number]): Direct one-on-one instruction in therapeutic exercises to develop strength, endurance, range of motion and flexibility. ? Exercises: * 2x10 LAQ vs blue theraband * 2x10 Hamstring curl vs blue theraband * 1x10 hip abduction vs blue theraband * 2x10 leg press vs blue theraband * 1x10 row vs blue theraband Ambulation: Patient ambulates with FWW and SBA for 80 feet with multiple sharp turns, wide BRENDAN, shortened step length. Provided skilled instruction in proper exercise performance Provided skilled manual cues to facilitate proper muscle recruitment and/or form. ASSESSMENT:? Patient tolerates therapy well, no LOB, no SOB, no c/o pain PLAN: Continue global strengthening per plan of care until patient is medically cleared for discharge. TREATMENT CODE/TIME: 14 minutes at 10:52 and 18 minutes at 14:20 for a total of 32 minutes today.
[2023-11-20] MEDS: LORazepam 2 MG/ML VIAL 1 MG IVP (12:28)
[2023-11-20 14:33] LABS: Anion Gap 9.8 mmol/L (3-11); BUN 44 mg/dL (7-18); CO2 25.2 mmol/L (21.0-32.0); Calcium 8.8 mg/dL (8.5-10.1); Chloride 98 mmol/L (98-107); Estimated GFR 35.68 (mL/min/1.73m2); Glucose 254 mg/dL (74-106); Potassium 3.7 mmol/L (3.5-5.1); Sodium 133 mmol/L (136-145)
--- NOTE | 2023-11-20 14:58 | PGE_ITS ---
Date of Service Date of service: 11/20/23 Time of Service: 14:59 Assessment and Plan Assessment and plan (1) Unstageable pressure ulcer of left foot: Status: Acute (2) Chronic ulcer of left foot with fat layer exposed: Status: Acute (3) Ulcer of left lower leg: Status: Acute (4) Venous insufficiency: Status: Acute (5) Atherosclerotic PVD with ulceration: Status: Acute (6) Diabetic ulcer of foot associated with diabetes mellitus due to underlying condition, with bone involvement without evidence of necrosis: Status: Acute (7) Severe sepsis due to methicillin resistant Staphylococcus aureus (MRSA) with acute organ dysfunction: Status: Acute (8) Gram-positive bacteremia: Status: Acute (9) Cellulitis: Status: Acute (10) Atrial fibrillation with RVR: Status: Acute (11) Acute kidney injury superimposed on chronic kidney disease: Status: Acute (12) CHF (congestive heart failure): Status: Chronic (13) Venous stasis syndrome: Status: Active (14) Morbid obesity: Status: Acute (15) Osteomyelitis of left foot: Status: Acute Assessment and plan: Interval note: Chart was reviewed. Three-phase bone scan findings suspicious for osteomyelitis do correlate with MRI findings. Discussed with the medicine team. I will await CTA he will benefit from CTA with digital subtraction/3D reconstruction to better visualize the vasculature. I called and discussed this with the r adiology team. Given that there are no x-ray changes indicating chronic osteomyelitis or bony destruction I recommend IV antibiotics for conservative care at this time. He will benefit from an aggressive debridement of the dorsal wound however will have to wait until CTA findings and possible vascular intervention as patient does appear to have mixed arterial venous disease as well as microvascular disease Will continue to follow and update plan accordingly. Objective Last Vital Signs Temp 97.0 F L 11/20/23 07:48 Pulse 78 11/20/23 07:48 Resp 18 11/20/23 07:48 BP 156/77 H 11/20/23 07:48 Pulse Ox 98 11/20/23 07:48 Laboratory Results - last 24 hr 11/20/23 11/20/23 06:30 14:10 WBC 7.77 RBC 3.36 L Hgb 10.2 L Hct 32.3 L MCV 96 H MCH 30.4 MCHC 31.6 L RDW 16.5 H Plt Count 147 MPV 9.3 Immature Gran % See Differential Neutrophils % 73.0 Band Neutrophils % 1 Lymphocytes % 10.0 Monocytes % 6.0 Eosinophils % 5.0 Basophils % 0.0 Metamyelocytes % 3 Myelocytes % 2 Nucleated RBC % 0.0 Absolute Neutrophils 5.75 Absolute Lymphocytes 0.78 L Absolute Monocytes 0.47 Absolute Eosinophils 0.39 Absolute Basophils 0.00 Polychromasia Present Anisocytosis 1+ Sodium 134 L 133 L Potassium 3.6 3.7 Chloride 98 98 Carbon Dioxide 24.6 25.2 Anion Gap 11.4 H 9.8 BUN 45 H 44 H Creatinine 2.0 H 2.0 H Est GFR (CKD-EPI 2020) 35.68 35.68 Glucose 259 H 254 H Calcium 9.0 8.8 Magnesium 1.8 Time Spent with Patient Time Spent with Patient: 25-34 minutes Time was spent: preparing to see the patient(eg.review tests), obtaining and/or reviewing separately otained hiistory, ordering medications,tests, procedures, referring, communicating with other health manager care management, indepentently interpreting results and care coordination
[2023-11-20 15:40] VITALS: BP 140/70; PULSE 88; RESP 20; TEMP 36.4; O2SAT 96
[2023-11-20] MEDS: Omnipaque 350 MG/ML 100 ML BTL IJ (15:43)
[2023-11-20] MEDS: Normal Saline - Diluent 50 ML VIAL IJ (15:44)
[2023-11-20] MEDS: Normal Saline 1,000 ML 80 ML IV ×2 (16:28→22:46)
[2023-11-20] MEDS: VANCOMYCIN 2,500 MG in Normal Saline 500 ML 250 MG IVPB (16:29)
[2023-11-20] MEDS: Rivaroxaban 15 MG TABLET PO (16:57)
--- NOTE | 2023-11-20 17:02 | PDOC.CMPRO ---
Date of service: 11/20/23 Time of Service: 17:02 Care Management Progress Note Progress Note Text Progress Note Text: Mario continues to be closely monitored, awaiting CTA results and possible wound debridement; determination for vascular intervention. Remains on conservative IV ABX awaiting further results. CM following. SDOH(Care Management) Screening Will the Patient Participate in the Screening?: Yes Do you worry about having a steady place to live?: no In the past 12 months, have you had to go without electric, gas, oil or water in your home?: yes Have you or anyone in your house had to go without enough food to eat?: no Has lack of transportation kept you from medical appointments or from doing things needed for daily living?: no Has anyone in your support network made you feel unsafe for any reason?: no Health Related Social Needs Health related social needs: material hardship(utilities)(Z59.87)
--- NOTE | 2023-11-20 18:14 | DI.VRAD_ITS ---
PROCEDURE INFORMATION: Exam: CTA Abdominal Aorta and Bilateral Lower Extremities (Run-off) With Contrast Exam date and time: 11/20/2023 3:17 PM Age: 68 years old Clinical indication: Other: Hypoperfusion TECHNIQUE: Imaging protocol: Computed tomographic angiography of the of the abdominal aorta, pelvis and bilateral lower extremities with contrast. 3D rendering (Not supervised by radiologist): MIP and/or 3D reconstructed images were created by the technologist. COMPARISON: CT ABDOMEN PELVIS WO 11/14/2023 4:34 PM FINDINGS: Aorta: Moderate atherosclerotic calcification of the distal aorta. No evidence of aortic aneurysm or dissection. Celiac trunk and mesenteric arteries: No occlusion or significant stenosis. Renal arteries: No occlusion or significant stenosis. Right iliac arteries: Mild diffuse atherosclerotic calcification. No occlusion or significant stenosis. Right femoral/popliteal arteries: Mild diffuse atherosclerotic calcification of the right femoral/popliteal arteries. No evidence of significant stenosis or occlusion. Right infrapopliteal arteries: Moderate atherosclerotic calcification throughout the right infrapopliteal arteries producing [id number] multilevel stenosis. Left iliac arteries: Mild diffuse atherosclerotic calcification. No occlusion or significant stenosis. Left femoral/popliteal arteries: Mild diffuse atherosclerotic calcification of the left femoral/popliteal arteries. No evidence of significant stenosis or occlusion. Left infrapopliteal arteries: Moderate atherosclerotic calcification throughout the left infrapopliteal arteries producing [id number] multilevel stenosis. Liver: No mass. Gallbladder and bile ducts: Unremarkable. No calcified stones. No ductal dilation. Pancreas: Unremarkable. No mass. No ductal dilation. Spleen: Normal. No splenomegaly. Adrenal glands: Normal. No mass. Kidneys and ureters: Normal. No mass. Stomach and bowel: Unremarkable. No obstruction. No mucosal thickening. Appendix: No evidence of appendicitis. Urinary bladder: Unremarkable. No mass. Reproductive: Unremarkable as visualized. Intraperitoneal space: Unremarkable. No free air. No significant fluid collection. Lymph nodes: No lymphadenopathy. Bones/joints: Evidence of prior bilateral toe amputations. Moderate degenerative changes in both feet and in the lumbar spine. No acute fracture. 3.6 cm thick-walled loculated fluid collection noted about the distal end of the 2nd metatarsal of the right foot concerning for abscess. Underlying partial erosion of the 2nd metatarsal head raising concern for osteomyelitis. Soft tissues: Diffuse subcutaneous body wall edema of the anterior abdominopelvic wall and bilateral lower extremities. IMPRESSION: 1. Moderate diffuse atherosclerotic calcification of the aorta as well as the bilateral iliac/femoral/popliteal arteries without hemodynamically significant stenosis or occlusion. 2. Moderate diffuse peripheral vascular disease of the bilateral infrapopliteal arteries without evidence of occlusion. 3. 3.6 cm thick-walled fluid collection about the distal end of the 2nd metatarsal raising concern for abscess. Underlying partial erosion of the 2nd metatarsal head raising concern for osteomyelitis. Dictated and Authenticated by: Byron Blank MD. Ordering:ERIC Meadows MD
[2023-11-20 20:41] VITALS: BP 143/83; PULSE 94; RESP 18; TEMP 37.3; O2SAT 97
[2023-11-20] MEDS: Acetaminophen 325 MG TAB 650 MG PO (20:57)
[2023-11-20] MEDS: Melatonin 3 MG TAB PO (20:59)
[2023-11-20] MEDS: Atorvastatin 40 MG TAB PO (20:59)
[2023-11-20] MEDS: Insulin Glargine 300 UNITS/3 ML PEN 76 UNITS SC (21:34)
[2023-11-20] MEDS: LORazepam 0.5 MG TAB PO (22:46)
[2023-11-21 02:57] VITALS: BP 158/51; PULSE 76; RESP 20; TEMP 36; O2SAT 96
[2023-11-21 04:20] LABS: Vancomycin, Trough 19.2 ug/mL (10.0-20.0)
[2023-11-21 07:07] LABS: Abs Immature Grans 0.41 10^3/uL (0.0-0.06); Absolute Basophil Count 0.06 10^3/uL (0.0-0.2); Absolute Eosinophil Count 0.33 10^3/uL (0.0-0.7); Absolute Lymphocyte Count 0.78 10^3/uL (1.2-3.4); Absolute Monocyte Count 0.55 10^3/uL (0.1-0.8); Absolute Neutrophil Count 6.18 10^3/uL (1.2-6.7); Basophils % 0.7; HGB 9.4 g/dL (13.5-17.5); Immature Grans % 4.9; Lymphocytes % 9.4; MCHC 31.3 % (32.0-36.0); MCV 96 fL (80-95); MPV 10.3 fL (8.0-11.0); Monocytes % 6.6; Neutrophils % 74.4; Platelet Count 160 10^3/uL (130-400); RBC 3.13 10^6/uL (4.36-5.78); RDW 16.4 % (11.8-14.1); RDW-SD 57.6 fL; WBC 8.31 10^3/uL (4.4-10.8)
[2023-11-21 07:41] LABS: Anion Gap 9.9 mmol/L (3-11); BUN 42 mg/dL (7-18); CO2 25.1 mmol/L (21.0-32.0); Calcium 8.6 mg/dL (8.5-10.1); Chloride 102 mmol/L (98-107); Estimated GFR 35.68 (mL/min/1.73m2); Glucose 196 mg/dL (74-106); Potassium 3.6 mmol/L (3.5-5.1); Sodium 137 mmol/L (136-145)
[2023-11-21] MEDS: Metoclopramide 10 MG/2 ML VIAL IVP ×3 (07:46→16:20)
[2023-11-21] MEDS: Isosorbide Mononitrate 60 MG TABCR 240 MG PO (07:58)
[2023-11-21] MEDS: Clopidogrel 75 MG TAB PO (07:59)
[2023-11-21] MEDS: Tamsulosin 0.4 MG CAPCR PO (08:00)
[2023-11-21] MEDS: Gabapentin 300 MG CAP PO (08:01)
[2023-11-21] MEDS: Metoprolol 50 MG TAB 100 MG PO (08:02)
[2023-11-21] MEDS: Metoprolol 25 MG TAB PO (08:02)
[2023-11-21] MEDS: Pantoprazole 40 MG TABCR PO (08:03)
[2023-11-21 08:06] VITALS: BP 121/71; PULSE 76; RESP 18; TEMP 36.1; O2SAT 99
[2023-11-21] MEDS: amLODIPine 10 MG TAB PO (08:23)
[2023-11-21] MEDS: Insulin Aspart 300 UNITS/3 ML PEN SC ×6 (08:27→17:42)
--- NOTE | 2023-11-21 09:27 | PDOC.CMPRO ---
Date of service: 11/21/23 Time of Service: 09:27 Care Management Progress Note Progress Note Text Progress Note Text: S/O:Ivan was sitting up in a chair visiting with his when CM met with him. He was pleasant and engaged easily with CM. Ivan shared that he may go to surgery again this afternoon for more debridement. There had been concern about the circulation to his foot and A: Ivan is a 68 year old man admitted on 11/12/23 with cellulitis P:Anticipate that Mario will be discharged home, possibly with new home health services, when medically cleared. He is agreeable to services if needed. He will follow up with his PCP and plan of care and transport with family. CM will follow and continue to assess for discharge needs. SDOH(Care Management) Screening Will the Patient Participate in the Screening?: Yes Do you worry about having a steady place to live?: no In the past 12 months, have you had to go without electric, gas, oil or water in your home?: yes Have you or anyone in your house had to go without enough food to eat?: no Has lack of transportation kept you from medical appointments or from doing things needed for daily living?: no Has anyone in your support network made you feel unsafe for any reason?: no Health Related Social Needs Health related social needs: material hardship(utilities)(Z59.87)
--- NOTE | 2023-11-21 12:02 | PTTR_ITS ---
PT Notes Visit Reasons: Cellulitis Inpatient Physical Therapy Treatment Note Date: 11/21/2023 Referring Doctor: Elizabet Mccord NP PT Orders: PT CONSULT: limited ability to ambulate Precautions: Fall. Contact precautions for MRSA in wound. Diabetic shoe on the R and post-op shoe on the L when OOB. CircAid compression garment on the R during the day. Subjective: Unsure of whether he is going home today like he anticipated. Patient and still not sure if patient has osteomyelitis. Agreeable to doing seated exercises with PT while awaiting straight knife cutter machine visit. asking whether is taking something for his rashes, she does feel that rashes are less red than they were. Objective: General Observation: Ulcer on the dorsum of L foot overlying the talus and navicular bone, 50-75% covered with necroic tissue/eschar. B legs and feet discolored. 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 CircAid garments to R leg. Skin rashes to B UE, LE and trunk. Mental Status: A&Ox3 Pain: Chronic low back pain ROM: Right Upper Extremity: WFL Left Upper Extremity: WFL Right Lower Extremity: hip motion limited by abdominal girth. Tolerates 100* flexion. Knee motion 0-110. Left Lower Extremity: hip motion limited by abdominal girth. Tolerates 100* flexion. Knee motion 0-110. Strength: Right Upper Extremity: WFL Left Upper Extremity: WFL Right Lower Extremity: Hip flexion 4/5. Quads 4/5. HS 3/5. Ankle DF 3/5 or greater. Left Lower Extremity: Hip flexion 4/5. Quads 4/5. HS 3/5. Ankle DF 3/5 or greater. Sensation: Asensate bilat feet and distal legs Bed Mobility/Transfers: sit-stand: independent stand-sit: independent Gait: Deferred as patient's feet and legs are without dressing and compression garments. THERA EX: Seated hip flexion x 10 LAQ x 10 Ankle pumps x 10 Heels slides x 10 Hip abduction/adduction x 10 Chair push ups x 10 Assessment: Bone scan came in with high suspicion for osteomyelitis on L foot. Corrugator Helper recommended on her 11/20/23 note CTA prior to wound debridement to assess for status of vasculature to L foot. Improved functional mobility performance, activity tolerance, and exercise execution. MRI this morning to rule out osteomyelitis, results pending. Will need bariatric FWW for optimal transfer and ambulation completion. Ensure that diabetic shoe is on the R and post-op shoe on the L when OOB to protect and cushion skin of feet. Plan of Care/Treatment Plan: 1-2x/day, 7 days/week x 1 week. Plan of care has been reviewed with the REPEAT PHOTOCOMPOSING MACHINE OPERATOR providing the service under Physical Therapy direction. Continue with PT POC to progress mobility level, activity tolerance, balance, and strength. DISCHARGE RECOMMENDATIONS: Home with HH PT TREATMENT CODE/TIME: 59166 x 23 minutes for 2 units beginning at 11:30 AM.
[2023-11-21] MEDS: Collagenase 30 GM TUBE TP (12:11)
[2023-11-21 12:25] VITALS: BP 122/76; PULSE 75; TEMP 36.7; O2SAT 97
[2023-11-21 15:18] VITALS: BP 125/72; PULSE 77; RESP 17; TEMP 36.2; O2SAT 97
--- NOTE | 2023-11-21 15:31 | PT.INTREAT ---
Date of service: 11/21/23 Time of Service: 15:12 PT Notes Visit Reasons: Cellulitis Inpatient Physical Therapy Treatment Note [facility] Date: 11/21/23 PRECAUTIONS: Fall, standard, activity as tolerated. Contact precautions d/t MRSA in wound. Shoes on for all OOB mobilization. SUBJECTIVE: Patient reports feeling spent. States that DPT Diana Suh had him doing all kinds of weird stuff during treatment session this morning, and as a result patient reports his legs are just about done. Patient also reports that he is ready to go home, but no one wants to let [him] leave. OBJECTIVE: Sitting up in chair. Agreeable to therapy. Wearing socks.? PAIN: none reported. VITALS: monitored by nursing staff. ? BED MOBILITY/TRANSFERS? Rolling L/R: not assessed Supine-sit: not assessed ? Sit-supine: not assessed ? Sit-stand: SBA ? Stand-sit: SBA ? Bed-Chair: SBA ? Chair-bed: SBA ? Therapeutic Exercises ([id number]): Direct one-on-one instruction in therapeutic exercises to develop strength, endurance, range of motion and flexibility. Ambulation ? Assistive Device: FWW ? Weight bearing: WBAT with diabetic shoe right, surgical shoe left to protect skin integrity with ambulation. Assist: SBA? Distance:? 100 feet within patient's room (due to contact precautions) involving several tight corners. ? Deviation: Patient's gait is noticeably worse today, posture more stooped, shorter step length - likely due to fatigue.? Provided skilled instruction in proper exercise performance Provided skilled manual cues to facilitate proper muscle recruitment and/or form. ASSESSMENT:? Patient dons BiPAP at close of treatment session, reporting that it makes him feel more relaxed. PLAN: Continue global strengthening per plan of care until patient is medically cleared for discharge TREATMENT CODE/TIME: 17 minutes beginning at 15:12 (with 23 minutes this AM with PT Giulia, today's total treatment time is 40 minutes.)
[2023-11-21] MEDS: VANCOMYCIN/WATER (PEG) 1.5 GM/300 ML BAG IV (16:19)
[2023-11-21] MEDS: Rivaroxaban 15 MG TABLET PO (16:21)
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
--- NOTE | 2023-11-21 16:46 | W.PM.DS.N ---
Date of service: 11/21/23 Time of Service: 16:50 DS: Diagnosis Discharge Diagnosis (1) Unstageable pressure ulcer of left foot: Status: Acute (2) Chronic ulcer of left foot with fat layer exposed: Status: Acute (3) Ulcer of left lower leg: Status: Acute (4) Venous insufficiency: Status: Acute (5) Atherosclerotic PVD with ulceration: Status: Acute (6) Diabetic ulcer of foot associated with diabetes mellitus due to underlying condition, with bone involvement without evidence of necrosis: Status: Acute (7) Severe sepsis due to methicillin resistant Staphylococcus aureus (MRSA) with acute organ dysfunction: Status: Acute (8) Gram-positive bacteremia: Status: Acute (9) Cellulitis: Status: Acute (10) Atrial fibrillation with RVR: Status: Acute (11) Acute kidney injury superimposed on chronic kidney disease: Status: Acute (12) CHF (congestive heart failure): Status: Chronic (13) Venous stasis syndrome: Status: Active (14) Morbid obesity: Status: Acute (15) Osteomyelitis of left foot: Status: Acute Discharge Plan Disposition Patient Disposition: Home W/Home Health Services Condition: Stable Discharge Details Reason For Visit: Cellulitis Admit Date/Time: 11/12/23 00:59 Admit Provider: Gerson Flores Attending Provider: Gerson Flores Primary Care Provider: Stefan Jaimes Hospital Course Hospital Course: This is a 68-year-old gentleman with significant past medical history including but not limited to diabetes mellitus type 2 chronic kidney disease coronary artery disease status post CABG A-fib hyperlipidemia chronic kidney disease chronic ulcer left lower extremity, venous insufficiency, heart failure who presented to the emergency department for worsening shortness of breath generalized weakness anorexia and worsening left foot ulcer. His workup in the emergency department was consistent with acute on chronic kidney injury with a creatinine of 4.5 with a baseline of 2.0, left foot diabetic ulcer with cellulitis. Met criteria for severe sepsis on admission with HR > 100, RR >20, and YOLANDA, lactate >2 was started on Zosyn and Zyvox and admitted to hospitalist services. Cultures positive for MRSA. Repeat blood cultures with no growth. Echocardiogram showed no evidence of vegetation. Hospital course also complicated with urinary retention urology consult completed and recommendations are to continue tamsulosin outpatient. Bowen catheter has been removed and he is voiding without difficulty. It was also thought this was contributing to his YOLANDA as his kidney function did improve after the catheter was placed. Per podiatry consultation: For the right foot abscess which was incidentally noted on the CT scan, this was discussed with the patient and advised him there is evidence for an abscess however clinically the right lower extremity is without any wound no tenderness to palpation no bogginess no crepitus no fluctuance at this time. Given vascular status,held off on exploring this abscess at this time however patient is advised to monitor the area regularly. Any redness swelling drainage wounds he is advised to call immediately as he may require an incision and drainage. Patient understands and agrees. Aorta CTA with runoff read shows contrast below the aortic bifurcation is insufficient for interpretation, if clinically indicated repeat study can be attempted after adequate hydration. patient states he has a vascular team at the [facility] and he would like to follow-up with them for further outpatient vascular testing Left lower extremity ulceration would benefit from a wound debridement however podiatry preferred to await further vascular's testing prior to a debridement as there is risk for amputation should there be any progression. Did discuss ongoing hospitalization with patient and patient wishes for discharge to home with [facility] He will be referred to home health services for nursing PT OT for wound care, hemodynamic monitoring and medication oversight. Did discuss IDs recommendation for 6 weeks of IV antibiotics to complete course for his MRSA bacteremia which would start from his first negative blood culture on November 16. Patient states he would prefer to be discharged and will [facility]. Recommendations will be for repeat blood cultures in 1 week in addition to kidney function and electrolytes but if any symptoms of treatment failure including fever chills malaise to report to the closest emergency department immediately. Orders placed for blood cultures basic metabolic panel CBC and for inflammatory markers to evaluate closely for outpatient treatment failure. These instructions have been provided to patient and his who both verbalized understanding and still wished for discharge to home. Patient is being discharged to home by private vehicle. Discharge discussed with Dr Merritt. Home Meds and New Rx's Prescriptions: New tamsulosin 0.4 mg Capsule 0.4 mg PO DAILY Qty: 60 0RF doxycycline hyclate 100 mg capsule 100 mg PO BID Qty: 72 0RF Santyl 250 unit/gram Ointment 1 applic topical DAILY Qty: 30 0RF Continued losartan [Cozaar] 50 MG tablet 100 mg PO DAILY clopidogrel [Plavix] 75 MG tablet 75 mg PO DAILY insulin aspart U-100 [Novolog U-100 Insulin aspart] 100 UNITS/ML solution 0 - 45 units SQ .WITH MEALS PRN acetaminophen [Acetaminophen Extra Strength] 500 MG tablet 1,000 mg PO PRN gabapentin 300 MG capsule 1 cap PO TID atorvastatin [Lipitor] 20 MG tablet 40 mg PO HS metoprolol tartrate 100 MG tablet 125 mg PO BID pantoprazole 40 MG tablet,delayed release (DR/EC) 40 mg PO QAM metformin [Glucophage] 1,000 MG tablet 500 mg PO BID Fish Oil 500 MG capsule 500 mg PO BID rivaroxaban 20 mg tablet 20 mg PO DAILY Rx Instructions: must administer with evening meal semaglutide (weight loss) 1 mg subcut .weekly ferrous sulfate [Feosol] 325 mg (65 mg iron) tablet 325 mg PO DAILY ranolazine 1,000 mg PO BID spironolactone [Aldactone] 50 mg tablet 50 mg PO DAILY docusate sodium [Col-Rite] 100 mg capsule 100 mg PO BID famotidine 20 mg tablet 20 mg PO QHS calcitriol 0.25 mcg PO .twice a week Patient Comments: Every Sunday and Sunday cholecalciferol (vitamin D3) 10 mcg (400 unit) capsule 800 unit PO QDAY docosahexaenoic acid-epa Capsule 1 cap PO BID (DME) pen needle, diabetic [Comfort Touch Pen Needle] 31 gauge x 5/32 needle See Rx Instructions .ROUTE Rx Instructions: As directed glucose sensor freestye rick 2 1 m SQ ONB .every 14 days Patient Comments: use one sensor every 14 days metolazone 2.5 mg tablet 2.5 mg PO DAILY PRN (DME) insulin syringe-needle U-100 [FreeStyle Precision] 1 mL 30 gauge x 5/16 syringe See Rx Instructions .ROUTE Rx Instructions: As directed bumetanide 2 MG tablet 2 mg PO DAILY potassium chloride 10 MEQ tablet extended release 10 meq PO BID amlodipine 5 MG tablet 10 mg PO DAILY isosorbide mononitrate 120 MG tablet extended release 24 hr 240 mg PO DAILY allopurinol 300 MG tablet 300 mg PO DAILY insulin glargine [Lantus Solostar U-100 Insulin] 100 UNIT/ML insulin pen 66 unit SQ HS Discharge Instructions Instructions: Diabetic Foot Ulcers (DC) Additional Instructions: Left foot: 1. Clean the wounds on the left foot with Anasept spray and allow to dwell for 2 minutes. 2. Pat dry. 3. Apply nickel thickness of Santyl ointment to dorsal foot wound, lateral wound, and plantar great toe areas. 5. Cover with 4x4 gauze. 6. Apply adaptic to scratches of left anterior lower extremity and to small areas on left lateral leg. 7. Wrap the leg with kerlix starting at the toes and working up the leg. 8. Change dressing daily. 9. Apply blue foam booties while in bed and keep left leg elevated on pillows. Stand Alone Forms: Nursing Discharge Form Referrals: [facility] [Outside] (Your PCP will be calling to set up an apt with Podiatry ) Activity:: Activity as Tolerated Equipment/Supplies:: No Equipment Needed Diet:: Carb Counting Discharge Orders Discharge Orders: Discharge Order (Routine); Ordered 11/21/23 Ordered By: Elizabet Mccord Other Ambulatory Orders: Blood Culture ( Age => 10 Yrs) (Routine) Timeframe: 20231126 Facility: [facility] - Location: [facility] Outpatient - [facility] Ordered By: Elizabet Mccord Basic Metabolic Panel (Routine) Timeframe: 20231126 Facility: [facility] - Location: [facility] Outpatient - [facility] Ordered By: Elizabet Mccord Complete Blood Count w/Diff (Routine) Timeframe: 20231126 Facility: [facility] - Location: [facility] - [facility] Ordered By: Elizabet Mccord ESR (Routine) Timeframe: 20231126 Facility: [facility] - Location: [facility] Outpatient - [facility] Ordered By: Elizabet Mccord C-Reactive Protein (Routine) Timeframe: 20231126 Facility: [facility] - Location: [facility] Out[facility] - [facility] Ordered By: Elizabet Mccord DS: Summary Time Spent with Patient providing and/or coordinating discharge services: Greater than 30 minutes Status at Discharge Functional status at discharge: uses cane/walker Overall status at discharge: patient is not back to baseline Mental Status: mental status grossly normal Speech and Movement: speech and movement normal Mood: congruent mood Affect: normal affect Quality:SDOH Health Related Social Needs: Health related social needs material hardship Exam Const General: frail appearing and ill appearing chronically Nutritional Appearance: obese Orientation: alert, awake and oriented x3 HENMT Head: normal to inspection, normocephalic and atraumatic Face and sinus: normal facial exam Mouth: oral mucosae normal Chest Chest: normal inspection of the chest Resp Effort & Inspection: normal respiratory effort Auscultation: clear to auscultation bilaterally and diminished lung sounds Cardio Rate: regular rate Rhythm: regular rhythm GI Inspection: normal to inspection and distended Skin General skin exam: crusts (left lower extremity), dry skin and erythema Lesions: other (Wound not visualized dressing is clean dry and intact) Rashes: rashes noted Neuro General: patient alert, patient awake and patient oriented x3 Extrem General: other (chronic discoloration to bilateral lower ext) Right lower extremity: foot Psych Mental Status: mental status grossly normal Speech and Movement: speech and movement normal Mood: congruent mood Affect: normal affect DS: Data Vitals/I&O Vitals and I&O: Vital Signs Temperature 36.2 C L 11/21/23 15:18 Temperature Source Tympanic 11/21/23 15:18 Pulse 77 11/21/23 15:18 Pulse Rhythm Irregular 11/21/23 09:26 Pulse 111 H 11/12/23 06:10 Respiratory Rate 17 11/21/23 15:18 Respiratory Effort Normal, Non-Labored 11/21/23 09:26 Respiratory Depth Normal 11/21/23 09:26 Respiratory Pattern Normal 11/21/23 09:26 Blood Pressure 125/72 11/21/23 15:18 Blood Pressure Mean 69 11/12/23 04:46 Blood Pressure Position Supine 11/11/23 22:04 Pulse Oximetry 97 11/21/23 15:18 Oxygen Delivery Method Room Air 11/21/23 15:18 Oxygen Flow Rate 0 11/21/23 15:18 Fraction of Inspired Oxygen (FIO2) 21 11/15/23 21:02 Pain Level 0 11/21/23 15:18 Comment pt using home CPAP for sleep 11/19/23 23:00 Comment 2 L NC 11/11/23 23:00 Intake & Output 11/20/23 11/21/23 11/21/23 23:59 11:59 23:59 Intake Total 1523 Output Total 1800 / 2200 875 / 875 Balance -276 / -116 -875 / -875 Intake: IV 1523 Output: Urine 1800 / 0 875 / 875 Other: Urine Color Light Lyla Yellow Urine Appearance Clear Clear Urine Odor None Normal Comment unmeasured urine on floor and gown Stool Size Small Stool Characteristics Mucoid Voiding Methods Urinal Urinal Data Completed and Pending Labs on day of discharge: Labs from last 24 hours 11/21/23 11/21/23 06:20 02:55 WBC 8.31 RBC 3.13 L Hgb 9.4 L Hct 30.0 L MCV 96 H MCH 30.0 MCHC 31.3 L RDW 16.4 H Plt Count 160 MPV 10.3 Immature Gran % 4.9 Neutrophils % 74.4 Lymphocytes % 9.4 Monocytes % 6.6 Eosinophils % 4.0 Basophils % 0.7 Nucleated RBC % 0.0 Absolute Neutrophils 6.18 Absolute Lymphocytes 0.78 L Absolute Monocytes 0.55 Absolute Eosinophils 0.33 Absolute Basophils 0.06 Sodium 137 Potassium 3.6 Chloride 102 Carbon Dioxide 25.1 Anion Gap 9.9 BUN 42 H Creatinine 2.0 H Est GFR (CKD-EPI 2020) 35.68 Glucose 196 H Calcium 8.6 Vancomycin Trough 19.2 PFSH All Active Problems (Updated 11/19/23 @ 15:32 by Salena Chua DPM) Osteomyelitis of left foot (Acute) Atherosclerotic PVD with ulceration (Acute) Venous insufficiency (Acute) Ulcer of left lower leg (Acute) Chronic ulcer of left foot with fat layer exposed (Acute) Unstageable pressure ulcer of left foot (Acute) Acute insomnia (Acute) ERENDIRA (obstructive sleep apnea) (Chronic) Diabetic ulcer of foot associated with diabetes mellitus due to underlying condition, with bone involvement without evidence of necrosis (Acute) Chest pain (Acute) Urinary retention with incomplete bladder emptying (Acute) Elevated serum creatinine (Acute) Severe sepsis due to methicillin resistant Staphylococcus aureus (MRSA) with acute organ dysfunction (Acute) Discharge planning issues (Acute) Gram-positive bacteremia (Acute) Cellulitis (Acute) Atrial fibrillation with RVR (Acute) Acute kidney injury superimposed on chronic kidney disease (Acute) CHF (congestive heart failure) (Chronic) History of: (Active) Right frozen shoulder, resolved. Right elbow tendinitis, now resolved. S/P hydrocele repair. 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 History of metatarsal fracture. Metabolic syndrome X (Active) Dyslipidemia (Active) Triglycerides greater than 600 and HDL in the 20s, consistent with metabolic syndrome. Atrial fibrillation (Active) Tinea cruris (Active) Venous stasis syndrome (Active) Morbid obesity (Acute) NM of 46. Gastroesophageal reflux disease (Active) Diabetes mellitus type 2 (Acute) Uncontrolled, usually on high dose insulin; known retinopathy and mild nephropathy. Benign hypertension (Active) Umbilical hernia (Active) Cellulitis and abscess of leg (Acute) Recurrent. Social History Smoking/Tobacco Use Status: Former Tobacco Use Smoking risk assessment performed?: Yes Alcohol Intake: never Drug use: Never Substance use type: does not use Housing: house Do you feel safe at home: Yes Do you feel safe in your relationship?: Yes Time Spent with Patient Time Spent with Patient: 45-69 minutes Time was spent: preparing to see the patient(eg.review tests), obtaining and/or reviewing separately otained hiistory, ordering medications,tests, procedures, indepentently interpreting results, counseling the patient and care coordination
--- NOTE | 2023-11-21 17:00 | PDOC.HHF2F ---
Home Health Referral Home Health Orders Clinical synopsis of why skilled professionals are needed: non healing diabetic foot ulcer, poorly controlled diabetes, wound care Medical diagnosis necessitation home health referral: diabetic foot infection, diabetes mellitus type 2 Registered Nurse: Check all that apply Instruct on new or changed medication(s)/assess compliance: Ordered Assess for exacerbation of medical condition, instruct patient/caregivers on signs and symptoms to report for early detection: Ordered Assess wound for signs and symptoms of infection, instruct on wound care and/or provide skilled wound care consisting of: Left foot: 1. Clean the wounds on the left foot with Anasept spray and allow to dwell for 2 minutes. 2. Pat dry. 3. Apply nickel thickness of Santyl ointment to dorsal foot wound, lateral wound, and plantar great toe areas. 5. Cover with 4x4 gauze. 6. Apply adaptic to scratches of left anterior lower extremity and to small areas on left lateral leg. 7. Wrap the leg with kerlix starting at the toes and working up the leg. 8. Change dressing daily. 9. Apply blue foam booties while in bed and keep left leg elevated on pillows. Physical Therapist: Check all that apply Increase strength & endurance for safe mobility at home: Ordered To design/establish home maintenance program: Ordered Fall reduction therapy program for patient with history of frequent falls: Ordered Home safety evaluation and teaching/gait training including stair management (if applicable): Ordered Occupational Therapist: Evaluate and treat for patient unable to perform ADL/IADL/self-care: Ordered Upper extremity strengthening, range and motion: Ordered Home Bound Status Describe why leaving home would require a considerable and taxing effort: Safety Concerns: describe (foot infection/wound) Encounter Date and Reason: I certify that a FTF encounter for this patient was performed on November 21, 2023 and that such encounter was related to the primary reason the patient requires home health services. The encounter was conducted in the following manner: By me as the certifying physician, SHELF DRIER OPERATOR, PA or By an inpatient physician, SHELF DRIER OPERATOR or PA during an inpatient stay who communicated findings to me, Certification And Authentication I certify that I composed the above information based on my clinical judgment relating to this patient's medical condition and, if applicable, clinical findings communicated to me by the NPP or inpatient physician who performed the FTF encounter. Name of Provider that will be monitoring home health services: Stefan Jaimes
--- NOTE | 2023-11-21 17:04 | PDOC.CMDIS ---
Date of service: 11/21/23 Time of Service: 17:04 LACE Index Scoring Tool Questions: Length of Stay (in days): 7 - 13 Was the patient admitted via the E.D.?: Yes Comorbidities: PVD, Diabetes w/o Complication, Congestive Heart Failure and Liver or Renal Disease E.D. Visits: 1 Answers: Total Score: 14 Risk of Readmission: High Risk Care Management Discharge Plan Reason for Hospitalization: cellulitis Discharge Plan: Ivan will be discharged home with new home health services for RN and PT. He will follow up with his NH team of providers and transport with his . Medhat has been seen and treated at the NH for his chronic foot wounds for a long time. He and his felt that it would be best if he accessed specialty services such as Vascular and Podiatry at the NH for continuity of care. Patient/Family Education Needs: Review of discharge instructions, limitations, follow up plan and Ask Me Three Services Needed at Discharge: Home Health Care Services SDOH Health Related Social Needs: Health related social needs material hardship Health related social needs: material hardship(utilities)(Z59.87)
== END 2023-11-21 18:25 | disposition home health service (06) | DRG 872 ==
LOC: ER 11-12 07:25 → MS 11-12 09:11
PROVIDERS: Internal Medicine; Nurse Practitioner Acute Care; Admitting Provider General Practice; Emergency Provider Student in an Organized Health Care Education/Training Program; PCP Family Medicine; Visit Provider General Practice
DX: A41.02 Sepsis due to Methicillin resistant Staphylococcus aureus (principal); Z68.42 Body mass index [BMI] 45.0-49.9, adult; N17.9 Acute kidney failure, unspecified; I13.0 Hypertensive heart and chronic kidney disease with heart failure and stage 1 through stage 4 chronic kidney disease, or unspecified chronic kidney disease; L97.426 Non-pressure chronic ulcer of left heel and midfoot with bone involvement without evidence of necrosis; L97.229 Non-pressure chronic ulcer of left calf with unspecified severity; M86.9 Osteomyelitis, unspecified; L97.422 Non-pressure chronic ulcer of left heel and midfoot with fat layer exposed; E11.621 Type 2 diabetes mellitus with foot ulcer; R65.20 Severe sepsis without septic shock; E11.22 Type 2 diabetes mellitus with diabetic chronic kidney disease; N18.9 Chronic kidney disease, unspecified; G47.33 Obstructive sleep apnea (adult) (pediatric); G47.00 Insomnia, unspecified; I87.2 Venous insufficiency (chronic) (peripheral); R33.9 Retention of urine, unspecified; I50.9 Heart failure, unspecified; I48.91 Unspecified atrial fibrillation; R53.1 Weakness; E78.5 Hyperlipidemia, unspecified; K21.9 Gastro-esophageal reflux disease without esophagitis; Z87.891 Personal history of nicotine dependence; E11.65 Type 2 diabetes mellitus with hyperglycemia; Z79.4 Long term (current) use of insulin; E66.01 Morbid (severe) obesity due to excess calories; L89.890 Pressure ulcer of other site, unstageable; Z89.412 Acquired absence of left great toe; Z89.422 Acquired absence of other left toe(s); E11.69 Type 2 diabetes mellitus with other specified complication; I70.244 Atherosclerosis of native arteries of left leg with ulceration of heel and midfoot
CPT/HCPCS: 00123; 36410; 36415; 36416; 75635; 76770; 80048; 80053; 82550; 82962; 84145; 85384; 85652; 87040; 87077; 87493; 93005; 96361; 96365; 96368; 97110; 97162; 97530; 99285; 71046; 73630; 73718; 74019; 74176; 78315; 80202; 81003; 81015; 82270; 82607; 82728; 82746; 83036; 83540; 83550; 83605; 83615; 83735; 83880; 84443; 84466; 84484; 85025; 85045; 85379; 85610; 85730; 86140; 87070; 87086; 87186; 87205; 93010; 93306; 99222; 99233; 99239; J0878; J1815; J2020; J2060; J2405; J2543; J2765; J3370; J3372; J3475; J3490; Q9967

== ENCOUNTER 2025-01-09 11:44 | Emergency (ER) | payer OTHER, SELFPAY ==
[2025-01-09] VITALS (43 sets, daily range): BP systolic 101–156; BP diastolic 27–65; PULSE 46–61; RESP 11–24; TEMP 36.6; O2SAT 94–99
--- NOTE | 2025-01-09 11:45 | RT.EKG_ITS ---
APPROVED REPORT Exam: Resting ECG Reason for Exam: bradycardia Patient Location: E HR:58 bpm ECG Measurements Heart Rate 58 AXIS [place] 191 P 11 QRSd 114 QRS 31 QT 501 T 3 QTc 493 Conclusion Sinus bradycardia...rate< 60 Borderline T abnormalities, diffuse leads...T flat/neg
[2025-01-09 12:15] LABS: Abs Immature Grans 0.03 10^3/uL (0.0-0.06); Absolute Basophil Count 0.02 10^3/uL (0.0-0.2); Absolute Eosinophil Count 0.17 10^3/uL (0.0-0.7); Absolute Lymphocyte Count 0.74 10^3/uL (1.2-3.4); Absolute Monocyte Count 0.41 10^3/uL (0.1-0.8); Absolute Neutrophil Count 3.89 10^3/uL (1.2-6.7); Basophils % 0.4 %; Eosinophils % 3.2 %; HCT 39.8 % (40.0-50.0); HGB 12.8 g/dL (13.5-17.5); Immature Grans % 0.6 %; Lymphocytes % 14.1 %; MCH 29.4 pg (27.0-33.0); MCHC 32.2 % (32.0-36.0); MCV 91 fL (80-95); MPV 10.8 fL (8.0-11.0); Monocytes % 7.8 %; Neutrophils % 73.9 %; Platelet Count 109 10^3/uL (130-400); RBC 4.36 10^6/uL (4.36-5.78); RDW 15.6 % (11.8-14.1); RDW-SD 51.3 fL; WBC 5.26 10^3/uL (4.4-10.8)
--- NOTE | 2025-01-09 12:38 | ED.GENADUL_ITS ---
Discharge Plan Disposition Patient Disposition: Home Condition: Stable Discharge Details Clinical Impression: Bradycardia, Dizziness Primary Care Provider: Stefan Jaimes ED Provider: Seth Godfrey Home Meds and New Rx's Prescriptions: New metoprolol tartrate 50 mg tablet 50 mg PO DAILY Qty: 30 0RF Continued clopidogrel [Plavix] 75 MG tablet 75 mg PO DAILY insulin aspart U-100 [Novolog U-100 Insulin aspart] 100 UNITS/ML solution 1 - 25 units SQ .WITH MEALS PRN acetaminophen [Acetaminophen Extra Strength] 500 MG tablet 1,000 mg PO PRN gabapentin 300 MG capsule 100 mg PO TID atorvastatin [Lipitor] 20 MG tablet 40 mg PO HS pantoprazole 40 MG tablet,delayed release (DR/EC) 40 mg PO QAM Fish Oil 500 MG capsule 500 mg PO BID rivaroxaban 20 mg tablet 15 mg PO DAILY Rx Instructions: must administer with evening meal semaglutide (weight loss) 2 mg subcut .weekly ferrous sulfate [Feosol] 325 mg (65 mg iron) tablet 325 mg PO DAILY ranolazine 1,000 mg PO BID spironolactone [Aldactone] 50 mg tablet 35 mg PO DAILY docusate sodium [Col-Rite] 100 mg capsule 100 mg PO BID (DME) pen needle, diabetic [Comfort Touch Pen Needle] 31 gauge x 5/32 needle See Rx Instructions .ROUTE Rx Instructions: As directed glucose sensor freestye rick 2 1 m SQ ONB .every 14 days Patient Comments: use one sensor every 14 days metolazone 2.5 mg tablet 2.5 mg PO DAILY PRN (DME) insulin syringe-needle U-100 [FreeStyle Precision] 1 mL 30 gauge x 5/16 syringe See Rx Instructions .ROUTE Rx Instructions: As directed doxycycline hyclate 100 mg capsule 100 mg PO BID Qty: 72 0RF bumetanide 2 MG tablet 2 mg PO DAILY potassium chloride 10 MEQ tablet extended release 40 meq PO BID amlodipine 5 MG tablet 10 mg PO DAILY isosorbide mononitrate 120 MG tablet extended release 24 hr 240 mg PO DAILY allopurinol 300 MG tablet 300 mg PO DAILY insulin glargine [Lantus Solostar U-100 Insulin] 100 UNIT/ML insulin pen 90 unit SQ HS Discontinued losartan [Cozaar] 50 MG tablet 100 mg PO DAILY metoprolol tartrate 100 MG tablet 100 mg PO BID metformin [Glucophage] 1,000 MG tablet 500 mg PO BID famotidine 20 mg tablet 20 mg PO QHS calcitriol 0.25 mcg PO .twice a week Patient Comments: Every Sunday and Sunday cholecalciferol (vitamin D3) 10 mcg (400 unit) capsule 800 unit PO QDAY docosahexaenoic acid-epa Capsule 1 cap PO BID tamsulosin 0.4 mg Capsule 0.4 mg PO DAILY Qty: 60 0RF Santyl 250 unit/gram Ointment 1 applic topical DAILY Qty: 30 0RF Discharge Instructions Instructions: Bradycardia Additional Instructions: Please follow-up with your primary care physician. Please follow-up with your spray gun repairer helper??call today to arrange timely follow-up next week. Your TSH (thyroid stimulating hormone level) was slightly elevated today. A follow-up test (free T4) has been sent and is pending at time of discharge. Please be sure to discuss this with your doctor. We are decreasing your metoprolol dose by half. If you develop dizziness with low heart rate again, please return immediately to the emergency department. Return to the emergency department immediately for any worsening or new concerning symptoms. Referrals: Stefan Jaimes [Primary Care Provider] - Discharge Data Discharge Date/Time-TO BE ENTERED AT DEPARTURE: 01/09/25 16:17 HPI General Mode of arrival: ambulatory . Date/Time Provider Initiated Documentation: 01/09/25 11:56 . Limitations to Documentation: no limitations . Information obtained by: patient . HPI Narrative: HISTORY OF PRESENT ILLNESS The patient presents for bradycardia evaluation. Patient is a 69-year-old male with history of multiple medical problems including coronary artery disease, chronic CHF, atrial fibrillation, chronic kidney disease, here with chief complaint bradycardia (HR 42 bpm) for 4 hours last night, with associated lightheadedness and near-syncope while seated. Symptoms improved with reclining, CPAP use, and sleep. Upon waking at 0100 hours, HR increased to the 50s. HR has been in the 50s without symptoms, varying between 55-70 bpm during nocturnal bathroom visits. He monitors HR daily via [facility] tele[facility] due to congestive heart failure. No defibrillator or pacemaker. Un derwent bypass surgery 35 years ago, managing CHF since then without hospitalization until July 2024, when aggressive diuresis led to a 23-pound weight loss. Currently on bumetanide (2 mg and 4 mg alternating every other day), with an option to increase dose, which he did yesterday, losing 3 pounds. Diagnosed with atrial fibrillation. HR recorded as low as 50, 52, and 59 bpm this week, no telehealth calls. HR recently increased to the 80s. BP around 109 systolic in the mornings, but 80s 2-3 weeks ago. No medication changes. No pain, but lightheaded when HR <45 bpm. HR was 43 bpm upon leaving home today, now normalized. Last metoprolol dose at 0800 hours. Telehealth nurse advised seeking medical attention. Heart monitor placed a week ago, battery Sunday. Thyroid function checked Sunday, results pending. No edema. Currently on metoprolol 100 mg once daily, reduced from 250 mg until July 2024. Considering medication change. 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 Supplemental Information 13 inches of colon removed on 11/04/2024 for cancer. Related Data Home Medications ?Medication ?Instructions ?Recorded ?Confirmed clopidogrel 75 mg tablet (Plavix) 75 mg PO DAILY 05/07/13 01/09/25 insulin aspart U-100 100 unit/mL 1 - 25 units SQ .WITH MEALS PRN 05/07/13 01/09/25 subcutaneous solution (Novolog U-100 Insulin aspart) acetaminophen 500 mg tablet 1,000 mg PO PRN 03/27/14 01/09/25 (Acetaminophen Extra Strength) gabapentin 300 mg capsule 100 mg PO TID 09/13/14 01/09/25 atorvastatin 20 mg tablet (Lipitor) 40 mg PO HS 01/03/16 01/09/25 pantoprazole 40 mg tablet,delayed 40 mg PO QAM 01/03/16 01/09/25 release omega-3 fatty acids 500 mg capsule 500 mg PO BID 08/23/16 01/09/25 (Fish Oil) allopurinol 300 mg tablet 300 mg PO DAILY 01/28/18 01/09/25 amlodipine 5 mg tablet 10 mg PO DAILY 01/28/18 01/09/25 bumetanide 2 mg tablet 2 mg PO DAILY 01/28/18 01/09/25 insulin glargine 100 unit/mL (3 90 unit SQ HS 01/28/18 01/09/25 mL) subcutaneous pen (Lantus Solostar U-100 Insulin) isosorbide mononitrate 120 mg 240 mg PO DAILY 01/28/18 01/09/25 tablet,extended release 24 hr potassium chloride 10 mEq 40 meq PO BID 01/28/18 01/09/25 tablet,extended release rivaroxaban 20 mg tablet 15 mg PO DAILY 11/14/23 01/09/25 ferrous sulfate 325 mg (65 mg 325 mg PO DAILY 11/15/23 01/09/25 iron) tablet (Feosol) ranolazine 1,000 mg PO BID 11/15/23 01/09/25 semaglutide (weight loss) 2 mg subcut .weekly Diabetes 11/15/23 01/09/25 spironolactone 50 mg tablet 35 mg PO DAILY 11/15/23 01/09/25 (Aldactone) docusate sodium 100 mg capsule 100 mg PO BID 11/16/23 01/09/25 (Col-Rite) glucose sensor [id number] rick 2 1 m SQ ONB .every 14 days 11/16/23 01/09/25 insulin syringe-needle U-100 1 mL 11/16/23 01/09/25 30 gauge x 5/16 (FreeStyle Precision) metolazone 2.5 mg tablet 2.5 mg PO DAILY PRN 11/16/23 01/09/25 pen needle, diabetic 31 gauge x 11/16/23 01/09/25 5/32 (Comfort Touch Pen Needle) doxycycline hyclate 100 mg capsule 100 mg PO BID #72 caps 11/21/23 01/09/25 metoprolol tartrate 50 mg tablet 50 mg PO DAILY #30 tabs 01/09/25 Previous Rx's ?Medication ?Instructions ?Recorded doxycycline hyclate 100 mg capsule 100 mg PO BID #72 caps 11/21/23 metoprolol tartrate 50 mg tablet 50 mg PO DAILY #30 tabs 01/09/25 Allergies Allergy/AdvReac Type Severity Reaction Status Date / Time silver (From Tegaderm AG Allergy Mild Skin Rash Verified 01/09/25 11:55 Mesh) Penicillins Allergy Unknown Verified 01/09/25 11:55 amoxicillin (From Augmentin) AdvReac Other (See Verified 01/09/25 11:55 Comment) clavulanic acid (From AdvReac Other (See Verified 01/09/25 11:55 Augmentin) Comment) cillians Allergy Mild Skin Rash Uncoded 01/09/25 11:55 General Stated Complaint: Arrhythmia EBONI: 3 Review of Systems Narrative: REVIEW OF SYSTEMS Negative for pain or edema. Exam Narrative Exam Narrative: PHYSICAL EXAM General Appearance: Normal. Vital signs: BP 101/27. Heart rate 57, respiratory rate 24, temp 36.6, saturating 95% on room air HEENT: Within normal limits. Respiratory: Lungs clear. Cardiovascular: Heart regular rhythm and rate, 60 bpm. Skin: Warm and dry, no rash. Neurological: Normal. Extremity: No edema Course Vital Signs Vital signs: Vital Signs Temperature 36.6 C 01/09/25 11:47 Pulse 57 L 01/09/25 11:47 Respiratory Rate 24 01/09/25 11:47 Blood Pressure 156/65 H 01/09/25 11:47 Pulse Oximetry 95 01/09/25 11:47 Temperature 36.6 C 01/09/25 11:47 Temperature Source Oral 01/09/25 11:47 Pulse 57 L 01/09/25 12:05 Pulse 58 L 01/09/25 12:05 Respiratory Rate 16 01/09/25 12:05 Blood Pressure 135/41 L 01/09/25 12:05 Blood Pressure Mean 72 01/09/25 12:05 Blood Pressure Position Sitting 01/09/25 11:47 Pulse Oximetry 98 01/09/25 12:05 Oxygen Delivery Method Room Air 01/09/25 11:47 Oxygen Flow Rate 0 01/09/25 11:47 Pain Level 0 01/09/25 11:47 Lab/Test Results Lab/Test Results: Laboratory Tests Range/Units 01/09/25 12:10 WBC (4.4-10.8) 10^3/uL 5.26 RBC (4.36-5.78) 10^6/uL 4.36 Hgb (13.5-17.5) g/dL 12.8 L Hct (40.0-50.0) % 39.8 L MCV (80-95) fL 91 MCH (27.0-33.0) pg 29.4 MCHC (32.0-36.0) % 32.2 RDW (11.8-14.1) % 15.6 H Plt Count (130-400) 10^3/uL 109 L MPV (8.0-11.0) fL 10.8 Immature Gran % % 0.6 Neutrophils % % 73.9 Lymphocytes % % 14.1 Monocytes % % 7.8 Eosinophils % % 3.2 Basophils % % 0.4 Nucleated RBC % (0.0-0.3) % 0.0 Absolute Neutrophils (1.2-6.7) 10^3/uL 3.89 Absolute Lymphocytes (1.2-3.4) 10^3/uL 0.74 L Absolute Monocytes (0.1-0.8) 10^3/uL 0.41 Absolute Eosinophils (0.0-0.7) 10^3/uL 0.17 Absolute Basophils (0.0-0.2) 10^3/uL 0.02 Medical Decision Making ASSESSMENT AND PLAN Initial Assessment: Patient presents with bradycardia and low normal blood pressure. Heart rate was in the 40s last night with associated presyncope and low again this morning, now normalized. History of congestive heart failure and atrial fibrillation. No recent changes in medication. Patient has been taking metoprolol as prescribed. Differential Diagnosis: - Bradycardia: Possible relation to cardiac condition or metoprolol 100 mg once daily. Consider medication tolerance. Plan to conduct comprehensive blood workup to check electrolytes and cardiac biomarkers. Re-evaluate thyroid function. ED Course: - Blood pressure and heart rate monitored. - Blood work ordered to check electrolytes and cardiac biomarkers. - Thyroid function to be re-evaluated. TSH slightly elevated. Sending free T4. -Patient was observed in the emerged apartment for prolonged period of time and heart rate remained in the 50s. Blood pressure normalized and remained stable. -Patient reassessed and feels well. No recurrent dizziness. Plan for discharge with close outpatient follow-up with his spray gun repairer helper. I will have him decrease his beta-ralph by one half of current dose. Plan discussed with the patient and his who are in agreement and requesting discharge. Final Assessment: Bradycardia potentially related to medication or underlying cardiac condition. Blood work and thyroid function tests to guide further management. Clinical Impression: - Bradycardia Disposition: - Discharge - Follow-Up: Patient to follow up with primary care and spray gun repairer helper at the [facility]. MDM Components Evaluation: - Number of Differential Diagnoses or Management Options: Bradycardia - Amount and Complexity of Data Reviewed: Blood pressure, heart rate, electrolytes, cardiac biomarkers, thyroid function. - Risk of Complication and Morbidity or Mortality: Moderate risk due to potential cardiac condition and medication effects. This document was written with the assistance of ENRIQUE Melgar. The patient consented to its use. Lab Data Lab results reviewed: Yes I reviewed the patient's lab results. Labs: Laboratory Tests Range/Units 01/09/25 01/09/25 12:10 13:10 WBC (4.4-10.8) 10^3/uL 5.26 RBC (4.36-5.78) 10^6/uL 4.36 Hgb (13.5-17.5) g/dL 12.8 L Hct (40.0-50.0) % 39.8 L MCV (80-95) fL 91 MCH (27.0-33.0) pg 29.4 MCHC (32.0-36.0) % 32.2 RDW (11.8-14.1) % 15.6 H Plt Count (130-400) 10^3/uL 109 L MPV (8.0-11.0) fL 10.8 Immature Gran % % 0.6 Neutrophils % % 73.9 Lymphocytes % % 14.1 Monocytes % % 7.8 Eosinophils % % 3.2 Basophils % % 0.4 Nucleated RBC % (0.0-0.3) % 0.0 Absolute Neutrophils (1.2-6.7) 10^3/uL 3.89 Absolute Lymphocytes (1.2-3.4) 10^3/uL 0.74 L Absolute Monocytes (0.1-0.8) 10^3/uL 0.41 Absolute Eosinophils (0.0-0.7) 10^3/uL 0.17 Absolute Basophils (0.0-0.2) 10^3/uL 0.02 Sodium (136-145) mmol/L 140 Potassium (3.5-5.1) mmol/L 3.9 Chloride (98-107) mmol/L 102 Carbon Dioxide (21.0-32.0) mmol/L 30.4 Anion Gap (3-11) mmol/L 7.6 BUN (7-18) mg/dL 47 H Creatinine (0.70-1.30) mg/dL 2.4 H Est GFR (CKD-EPI 2020) (mL/min/1.73m2) 28.49 Glucose (74-106) mg/dL 219 H Calcium (8.5-10.1) mg/dL 9.3 Magnesium mg/dL 2.2 Total Bilirubin (0.2-1.0) mg/dL 0.6 AST (15-37) U/L 14 L ALT (16-63) U/L 15 L Alkaline Phosphatase (46-116) U/L 120 H Troponin I (<or=76) ng/L 16 16 Total Protein (6.4-8.2) g/dL 7.4 Albumin (3.4-5.0) g/dL 3.6 TSH (0.36-3.74) uIU/mL 3.87 H Quality:SDOH Health Related Social Needs: No Data to Display PFSH All Active Problems (Updated 01/09/25 @ 15:53 by Seth Godfrey MD) Dizziness (Acute) Bradycardia (Acute) Osteomyelitis of left foot (Acute) Atherosclerotic PVD with ulceration (Acute) Venous insufficiency (Acute) Ulcer of left lower leg (Acute) Chronic ulcer of left foot with fat layer exposed (Acute) Unstageable pressure ulcer of left foot (Acute) Acute insomnia (Acute) ERENDIRA (obstructive sleep apnea) (Chronic) Diabetic ulcer of foot associated with diabetes mellitus due to underlying condition, with bone involvement without evidence of necrosis (Acute) Chest pain (Acute) Urinary retention with incomplete bladder emptying (Acute) Elevated serum creatinine (Acute) Severe sepsis due to methicillin resistant Staphylococcus aureus (MRSA) with acute organ dysfunction (Acute) Gram-positive bacteremia (Acute) Cellulitis (Acute) Atrial fibrillation with RVR (Acute) Acute kidney injury superimposed on chronic kidney disease (Acute) CHF (congestive heart failure) (Chronic) History of: (Active) Right frozen shoulder, resolved. Right elbow tendinitis, now resolved. S/P hydrocele repair. 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 History of metatarsal fracture. Metabolic syndrome X (Active) Dyslipidemia (Active) Triglycerides greater than 600 and HDL in the 20s, consistent with metabolic syndrome. Atrial fibrillation (Active) Tinea cruris (Active) Venous stasis syndrome (Active) Morbid obesity (Acute) [place] of 46. Gastroesophageal reflux disease (Active) Diabetes mellitus type 2 (Acute) Uncontrolled, usually on high dose insulin; known retinopathy and mild nephropathy. Benign hypertension (Active) Umbilical hernia (Active) Cellulitis and abscess of leg (Acute) Recurrent. Social History Smoking/Tobacco Use Status: Former Tobacco Use Smoking risk assessment performed?: Yes Alcohol Intake: never Drug use: Never Substance use type: does not use Housing: house Do you feel safe at home: Yes Do you feel safe in your relationship?: Yes
[2025-01-09 12:48] LABS: ALT 15 U/L (16-63); AST 14 U/L (15-37); Albumin 3.6 g/dL (3.4-5.0); Alkaline Phosphatase 120 U/L (46-116); Anion Gap 7.6 mmol/L (3-11); BUN 47 mg/dL (7-18); Bilirubin, Total 0.6 mg/dL (0.2-1.0); CO2 30.4 mmol/L (21.0-32.0); CREATININE 2.4 mg/dL (0.70-1.30); Calcium 9.3 mg/dL (8.5-10.1); Chloride 102 mmol/L (98-107); Estimated GFR 28.49 (mL/min/1.73m2); Glucose 219 mg/dL (74-106); Magnesium 2.2 mg/dL; Potassium 3.9 mmol/L (3.5-5.1); Sodium 140 mmol/L (136-145); TSH (W/Ref FT4) 3.87 uIU/mL (0.36-3.74); Total Protein 7.4 g/dL (6.4-8.2); Troponin I 16 ng/L (<or=76)
[2025-01-09 14:17] LABS: Troponin I 16 ng/L (<or=76)
[2025-01-09 22:02] LABS: T4, Free 1.1 ng/dL (0.8-2.2)
== END 2025-01-09 16:17 | disposition home or self-care (01) ==
PROVIDERS: Emergency Provider Student in an Organized Health Care Education/Training Program; PCP Family Medicine
DX: R00.1 Bradycardia, unspecified (principal); R42 Dizziness and giddiness; I25.10 Atherosclerotic heart disease of native coronary artery without angina pectoris; I25.2 Old myocardial infarction; E11.9 Type 2 diabetes mellitus without complications; I48.91 Unspecified atrial fibrillation; Z79.02 Long term (current) use of antithrombotics/antiplatelets; Z79.4 Long term (current) use of insulin; Z79.84 Long term (current) use of oral hypoglycemic drugs; Z87.891 Personal history of nicotine dependence
CPT/HCPCS: 36415; 80053; 93005; 99283; 83735; 84439; 84443; 84484; 85025; 93010